=== PATIENT | male | born 1950 | race Caucasian/White ===

== ENCOUNTER 2021-12-15 14:09 | Inpatient (IN) | payer MEDICARE, SELFPAY ==
[2021-12-15] VITALS (11 sets, daily range): BP systolic 132–144; BP diastolic 67–88; PULSE 93–108; RESP 12–20; TEMP 36.6–37.1; O2SAT 90–97; BMI 21.3; BMI 21.2
--- NOTE | ~2021-12-15 | CT_ITS ---
EXAMINATION: CTA brain carotid DATE: 12/16/2021 11:01 INDICATION: Altered mental status. TECHNIQUE: Computed tomographic angiography (CTA) of the head was performed without and with 100 mL O mnipaque-350 intravenous contrast. CTA of the neck was performed with intravenous contrast. Automated exposure control and iterative reconstruction technique were employed. The dose-length product was 1 946.00 mGy-cm. Maximum intensity projection and volume rendered 3D-reconstructions were created by e technologist on a separate workstation. COMPARISON: Head CT 12/15/2021 FINDINGS: HEAD CTA: There are infarcts in the occipital lobes, left worse than right. There is chronic encephal omalacia in lateral left frontal and temporal lobes. There is an old lacunar infarct in right caudate nucleus. There are scattered areas of low attenuation in the cerebral white matter. There is no intr acranial hemorrhage or abnormal mass lesion. The ventricles are normal in size. There are likely cardenas ges of ocular lens replacement surgeries. There is mild mucosal thickening in left maxillary sinus. T here are small bilateral mastoid effusions. Left vertebral artery is dominant. There is no significan t stenosis of basilar artery or the posterior cerebral arteries. There is no significant stenosis of the intracranial internal carotid arteries or anterior or middle cerebral arteries. Anterior communic ating artery is normal. Posterior communicating arteries are not identified. There is no aneurysm. NECK CTA: There is mild scarring at the lung apices. There is moderate emphysema. There is mild mucos al lymphadenopathy. There is no significant stenosis of the vertebral arteries. There is plaque in th e proximal internal carotid arteries. There is 24% stenosis of the proximal right internal carotid ar johnson relative to normal distal artery lumen diameter (NASCET criteria). There is 0% stenosis of the p roximal left internal carotid artery relative to normal distal artery lumen diameter. There is severe cervical spondylosis. IMPRESSION: 1. Infarcts in the occipital lobes, left worse than right, likely acute. 2. Chronic encephalomalacia in left temporal and frontal lobes. 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 3. Moderate nonspecific cerebral white matter disease, which likely represents chronic small vessel i schemic disease. 4. No aneurysm or significant intracranial arterial stenosis. 5. 24% stenosis of the proximal right internal carotid artery relative to normal distal artery lumen diameter (NASCET criteria). 6. 0% stenosis of the proximal left internal carotid artery relative to normal distal artery lumen di ameter. 7. Mild mediastinal lymphadenopathy, likely reactive. 8. Moderate emphysema. Reviewed, dictated and finalized at location A. OF DESIGN IMPRESSION: 1. Infarcts in the occipital lobes, left worse than right, likely acute. 2. Chronic encephalomalacia in left temporal and frontal lobes. 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 3. Moderate nonspecific cerebral white matter disease, which likely represents chronic small vessel ischemic disease. 4. No aneurysm or significant intracranial arterial stenosis. 5. 24% stenosis of the proximal right internal carotid artery relative to ld l distal artery lumen diameter (NASCET criteria). 6. 0% stenosis of the proximal left internal carotid artery relative to normal distal artery lumen diameter. 7. Mild mediastinal lymphadenopathy, likely reactive. 8. Moderate emphysema.
--- NOTE | ~2021-12-15 | US_ITS ---
EXAMINATION: US arterial ankle brachial ind DATE: 12/16/2021 10:36 INDICATION: Peripheral arterial disease. TECHNIQUE: Segmental pressures and plethysmographic and Doppler waveforms of the brachial and lower e xtremity arteries were obtained. COMPARISON: None. FINDINGS: Right and left brachial artery pressures of 150 mm Hg and 160 mm Hg, respectively, are concordant (no rmal difference <= 30 mmHg). The right ankle-brachial index (HANNA) is 0.61 (normal >= 0.9-1.0). The right great toe-brachial index (TBI) is 0.40 (normal >= 0.65). Arterial Doppler waveforms are biphasic in dorsalis pedis and triphas ic in posterior tibial artery. There is a left above-knee amputation. IMPRESSION: 1. Moderately decreased right HANNA, consistent with arterial occlusive disease. Reviewed, dictated and finalized at location A. TECHNICIAN
--- NOTE | ~2021-12-15 | CT_ITS ---
EXAMINATION: CTA chest PE protocol DATE: 12/17/2021 16:49 INDICATION: Hypoxia. TECHNIQUE: Computed tomography angiography (CTA) of the chest was performed with 100 mL Omnipaque-350 intravenous contrast timed to evaluate the pulmonary arteries. Coronal maximum intensity projection 3D-reconstructions were created by the technologist. Automated exposure control and iterative reconst ruction technique were employed. The dose-length product was 663.35 mGy-cm. COMPARISON: None. FINDINGS: There is mild scarring at the lung apices. There are airspace opacities and groundglass opa cities in the lower lobes bilaterally. There is moderate emphysema. There are trace pleural effusions . Cardiomegaly is noted. There are coronary artery calcifications. No pericardial effusion. There is a large sliding hiatal hernia. There is mild mediastinal lymphadenopathy. There is no pulmonary embol us. There are multiple old right rib fractures. There is severe cervical spondylosis and moderate tho racic spondylosis. There are chronic compression fractures of T1 and T2 vertebral bodies. IMPRESSION: 1. No pulmonary embolus. Sensitivity and specificity are moderately decreased by motion artifact. 2. Airspace and groundglass opacities in the lower lobes, consistent with atelectasis versus pneumoni a. 3. Moderate emphysema. 4. Large sliding hiatal hernia. 5. Mild mediastinal lymphadenopathy, likely reactive. Reviewed, dictated and finalized at location A. SCHOOL COORDINATOR IMPRESSION: 1. No pulmonary embolus. Sensitivity and specificity are moderately decreased b y motion artifact. 2. Airspace and groundglass opacities in the lower lobes, consistent with atele ctasis versus pneumonia. 3. Moderate emphysema. 4. Large sliding hiatal hernia. 5. Mild mediastinal lymphadenopathy, likely reactive.
--- NOTE | ~2021-12-15 | MR_ITS ---
EXAMINATION: MR brain/brain stem wo/w con DATE: 12/16/2021 10:18 INDICATION: Cerebrovascular accident. TECHNIQUE: Magnetic resonance imaging (MRI) of the brain and brainstem was performed without and with 14 mL MultiHance intravenous contrast. COMPARISON: Head CT 12/16/2021 FINDINGS: There are scattered acute infarcts involving the right caudate nucleus, posterior frontal l obes, parietal lobes, occipital lobes, posterior temporal lobes, and bilateral cerebellum. There are scattered areas of nonspecific increased T2-weighted signal intensity in the cerebral white matter. T here is chronic encephalomalacia in lateral left frontal and temporal lobes. There is no acute intrac ranial hemorrhage or abnormal mass lesion. The ventricles are normal in size. There are likely change s of ocular lens replacement surgeries. There is a mucous retention cyst in left maxillary sinus. The re are small bilateral mastoid effusions. IMPRESSION: 1. Acute infarcts involving the right caudate nucleus, posterior frontal lobes, parietal lobes, occip ital lobes, posterior temporal lobes, and bilateral cerebellum. 2. Chronic encephalomalacia in lateral left frontal and temporal lobes. 3. Moderate nonspecific cerebral white matter disease, which likely represents chronic small vessel i schemic disease. Reviewed, dictated and finalized at location A. OR MANAGING NEWSPAPER IMPRESSION: 1. Acute infarcts involving the right caudate nucleus, posterior frontal lobes, parietal lobes, occipital lobes, posterior temporal lobes, and bilateral cereb ellum. 2. Chronic encephalomalacia in lateral left frontal and temporal lobes. 3. Moderate nonspecific cerebral white matter disease, which likely represents chronic small vessel ischemic disease.
--- NOTE | ~2021-12-15 | CT_ITS ---
EXAMINATION: CT brain wo con DATE: 12/18/2021 15:41 INDICATION: Stroke symptoms TECHNIQUE: Computed tomography (CT) of the head was performed without intravenous contrast. The mA wa s adjusted according to patient size. Iterative reconstruction technique was employed. Exam dose: 83 2.33 mGy-cm total exam DLP. COMPARISON: 12/16/2021 CT brain carotid 12/16/2021 MR brain/brainstem FINDINGS: Examination is mildly limited by motion artifact. There is vertebrobasilar and bilateral carotid siphon internal carotid artery calcification. There is nonspecific diminished attenuation of the cerebral white matter, likely due to chronic small vessel ischemic changes. Small probable subacute or chronic bilateral occipital infarcts, larger on the left. Focal lateral en cephalomalacia left temporal lobe. No intracranial mass lesion or hemorrhage, midline shift or mass effect or recent cerebrovascular acc ident is evident. No midline shift or mass effect. No subdural or epidural hematoma is noted. The orbital contents are unremarkable. Mild posterior inferior left maxillary sinus mucoperiosteal thickening. The paranasal sinuses and mas toid air cells otherwise unremarkable. No fracture or bone destruction of the cranial vault is detected. IMPRESSION: No intracranial hemorrhage, midline shift or mass effect is noted Subacute bilateral occipital infarcts and lateral left temporal focal encephalomalacia Cerebral atherosclerosis and chronic small vessel ischemic changes of the cerebral white matter No significant change since 12/16/2021 Reviewed, dictated and finalized at Location A. Reviewed, dictated and finalized at location A. STRIAL ELECTRICIAN JOURNEYMAN IMPRESSION: No intracranial hemorrhage, midline shift or mass effect is noted Subacute bilateral occipital infarcts and lateral left temporal focal encephalo malacia Cerebral atherosclerosis and chronic small vessel ischemic changes of the cereb ral white matter No significant change since 12/16/2021
--- NOTE | ~2021-12-15 | XR_ITS ---
EXAMINATION: XR chest 1V portable INDICATION: Hypoxia TECHNIQUE: Portable AP chest at 1053 hours COMPARISON: 12/15/2021 FINDINGS: Left basilar atelectasis persists without significant change. There is mild atelectasis of the right lung base. There is a large hiatal hernia. No pleural effusion or pneumothorax. The heart s ize is normal. IMPRESSION: 1. Mild atelectasis of the lung bases. Reviewed, dictated and finalized at location B. TIC EXTRUSION OPERATOR
--- NOTE | ~2021-12-15 | CT_ITS ---
EXAMINATION: CT brain wo con DATE: 12/15/2021 16:46 INDICATION: Altered mental status. TECHNIQUE: Computed tomography (CT) of the head was performed without intravenous contrast. The mA wa s adjusted according to patient size. Iterative reconstruction technique was employed. The dose-lengt h product was 1210.67 mGy-cm. COMPARISON: None FINDINGS: There is chronic encephalomalacia in the lateral aspects of left frontal and temporal lobes . There are infarcts in the occipital lobes, left worse than right. There are scattered areas of low attenuation in the cerebral white matter. There is no intracranial hemorrhage or abnormal mass lesion . The ventricles are normal in size. There are likely changes of ocular lens replacement surgeries. T here is mild mucosal thickening in the ethmoid sinuses. The mastoid air cells are normal. IMPRESSION: 1. Infarcts in the occipital lobes, left worse than right, likely acute. 2. Chronic encephalomalacia in left temporal and frontal lobes. 3. Moderate nonspecific cerebral white matter disease, which likely represents chronic small vessel i schemic disease. Reviewed, dictated and finalized at location A. CAL CASE MANAGER IMPRESSION: 1. Infarcts in the occipital lobes, left worse than right, likely acute. 2. Chronic encephalomalacia in left temporal and frontal lobes. 3. Moderate nonspecific cerebral white matter disease, which likely represents chronic small vessel ischemic disease.
--- NOTE | ~2021-12-15 | US_ITS ---
EXAMINATION: US venous doppler [facility] DATE: 12/18/2021 09:14 INDICATION: Lower limb swelling, left [id number] amputation TECHNIQUE: Vick scale images without and with compression and Doppler images of the bilateral lower e xtremity veins were obtained. COMPARISON: None FINDINGS: The right common femoral vein, profunda femoral vein, femoral vein, popliteal vein, posterior tibial veins, and greater saphenous vein are patent. The right peroneal vein is difficult to visualize. The left common femoral vein, profunda femoral vein, femoral vein, and greater saphenous vein are pat ent. IMPRESSION: 1. Patent bilateral lower extremity veins. No evidence of deep venous thrombosis. Right peroneal vein difficult to visualize. Reviewed, dictated and finalized at location A. CAMPAIGN MANAGER IMPRESSION: 1. Patent bilateral lower extremity veins. No evidence of deep venous thrombosi s. Right peroneal vein difficult to visualize.
--- NOTE | ~2021-12-15 | XR_ITS ---
EXAMINATION: XR chest 1V portable DATE: 12/15/2021 16:25 INDICATION: Altered mental status. TECHNIQUE: A single frontal view of the chest was obtained on 2 radiographs. COMPARISON: Chest single view 06/20/15 FINDINGS: There is a large hiatal hernia. There is mild atelectasis in left lower lung zone. No pleur al effusion or pneumothorax. The heart size is normal. IMPRESSION: 1. Large hiatal hernia. 2. Mild atelectasis in left lower lung zone. Reviewed, dictated and finalized at location A. ER CUTTER
--- NOTE | ~2021-12-15 | XR_ITS ---
EXAMINATION: XR barium swallow modified DATE: 12/18/2021 12:15 INDICATION: Pneumonia, possible aspiration TECHNIQUE: Modified barium esophagram was performed by myself who administered fluoroscopy, in conju nction with speech pathologist who administered barium in varying consistencies as per speech patholo gist documentation. This was recorded on tape. A single fluoroscopic spot image was recorded. Fluoros copy exposure time was 0.7 minutes. The DAP for this procedure was 0.988 Gycm2. FINDINGS: Oral stage: Adequate function. Pharyngeal phase: Adequate function. Laryngeal penetration: None. Aspiration: None. Laryngeal sensitivity: Not applicable. IMPRESSION: Normal modified barium swallow. Please refer to speech pathologist findings and specific feeding recommendations. Reviewed, dictated and finalized at location A. ENRICHMENT SPECIALIST
--- NOTE | ~2021-12-15 | US_ITS ---
EXAMINATION: US venous doppler UE DATE: 12/18/2021 09:25 INDICATION: Bilateral upper extremity swelling TECHNIQUE: Grayscale ultrasound images without and with compression and Doppler ultrasound images of the bilateral upper extremity veins were obtained. COMPARISON: None. FINDINGS: The right internal jugular vein, subclavian vein, axillary vein, basilic vein, cephalic vein, radial vein, and ulnar vein are patent. There is thrombosis in the right brachial vein. The left internal jugular vein, subclavian vein, axillary vein, brachial veins, basilic vein, radial vein, and ulnar vein are patent. There is thrombosis in the left cephalic vein. IMPRESSION: 1. Venous thrombosis in the right brachial vein and left cephalic vein. Reviewed, dictated and finalized at location A. ANICAL MANUFACTURING ENGINEER
--- NOTE | 2021-12-15 14:33 | ECG_ITS ---
Measurements Intervals [place] Rate: 94 P: 78 NV: 133 QRS: 16 QRSD: 93 T: 72 QT: 341 QTc: 426 Interpretive Statements SINUS RHYTHM ATRIAL PREMATURE COMPLEXES POSSIBLE LEFT ATRIAL ENLARGEMENT CANNOT RULE OUT SEPTAL INFARCT, AGE INDETERMINATE ABNORMAL ECG NO PREVIOUS ECG AVAILABLE FOR COMPARISON Electronically Signed On 12-15-2021 15:49:05 GRADER [employer]AT by Norman Williamson D.O.
[2021-12-15 15:45] LABS: Basophils Absolute Auto 0.1 K/mm3 (0.0-0.1); Basophils Percent Auto 0.6 % (0.2-1.2); Eosinophils Absolute Auto 0.1 K/mm3 (0-0.3); Eosinophils Percent Auto 1.5 % (0-4.4); Hematocrit 42.8 % (42.0-52.0); Hemoglobin 13.7 g/dL (14.0-18.0); Immature Granulocyte Absolute 0.03 K/mm3 (0.00-0.031); Immature Granulocyte Percent A 0.4 % (0-0.5); Immature Platelet Fraction Pct 8.9 % (0.9-11.2); Lymphocytes Percent Auto 19.7 % (18.3-44.2); Mean Corpuscular Hemoglobin 26.1 pg (26-34); Mean Corpuscular Volume 81.7 fl (80-100); Mean Platelet Volume 10.1 fl (7.4-10.4); Monocytes Absolute Auto 0.7 K/mm3 (0.1-0.6); Monocytes Percent Auto 8.6 % (2.6-8.5); Neutrophils Absolute Auto 5.6 K/mm3 (1.3-6.7); Neutrophils Percent Auto 69.2 % (45.5-73.1); Platelet Count Result 107 k/mm3 (150-375); Red Blood Count 5.24 M/mm3 (4.6-6.20); Red Cell Distribution Width 15.6 % (11.5-14.5); White Blood Count 8.1 K/mm3 (4.5-10.0)
[2021-12-15 15:52] LABS: Alanine Aminotransferase 48 U/L (6-50); Albumin Level 3.1 g/dL (3.5-5.1); Alkaline Phosphatase 111 U/L (38-126); Anion Gap 7 mmol/L (8-16); Aspartate Amino Transferase 75 U/L (17-59); Bilirubin,Total 0.7 mg/dL (0.2-1.3); Blood Urea Nitrogen 19 mg/dL (9-20); Calcium 8.3 mg/dL (8.4-10.2); Carbon Dioxide 33 mmol/L (22-30); Chloride 95 mmol/L (98-107); Estimated CRCL calculation 53 ml/min; Estimated Glomerular Filt Rate > 60; Glucose 99 mg/dL (65-110); Potassium 3.7 mmol/L (3.4-5.0); Sodium 135 mmol/L (137-145)
[2021-12-15 15:53] LABS: INR 1.4; Prothrombin Time 16.3 Seconds (11.1-14.7)
[2021-12-15 15:54] LABS: Partial Thromboplastin Time 30.1 SECONDS (22.3-36.8)
[2021-12-15 16:12] LABS: Creatine Kinase 191 U/L (55-170)
--- NOTE | 2021-12-15 16:15 | PC.NURSE ---
Patient A&Ox1 at this time. Family states patient has been this way since Monday evening.
--- NOTE | 2021-12-15 17:19 | ED.AMS ---
HPI - Altered Mental Status General Chief Complaint: Altered Mental Status Stated Complaint: altered mental status since Monday Time Seen by Provider: 12/15/21 17:02 History of Present Illness HPI narrative: Pt presents with altered mental status today. Pt has had some balance issues recently and fell last week but did not injure himself. Pt has had intermittent visual symptoms (blurred vison) but says is fine now. Pt denies MURCIA. Pt denies one sided weakness. Related Data Home Medications Medication Instructions Recorded Confirmed Aleve 220 PO BID 12/15/21 famotidine 40 mg tablet 40 mg PO DAILY 12/15/21 12/15/21 morphine 30 mg tablet,extended 30 mg PO DAILY 12/15/21 12/15/21 release Allergies Allergy/AdvReac Type Severity Reaction Status Date / Time No Known Allergies Allergy Unverified 05/27/15 06:58 Review of Systems Review of Systems: All systems reviewed & are unremarkable except as noted in HPI and below PMFSH Family History Family History (Updated 02/20/13 @ 12:12 by DOCTOR UNKNOWN) Other Hypertension Social History Social History Smoking status: Current every day smoker Alcohol intake: never Exam Const: General: healthy appearing Nutritional Appearance: well nourished Orientation/consciousness: patient oriented x3 Limitations: no limitations HENMT: Head: normal to inspection Mouth: Yes Normal oral and palatal mucosa present Eyes: Conjunctivae: conjunctivae normal Pupils: Equal, round and reactive pupils present EOM: EOMs intact bilaterally Neck: Neck: normal visual inspection, no lymphadenopathy and no meningeal signs Resp: Effort & Inspection: normal respiratory effort Auscultation: clear to auscultation bilaterally Cardio: Rate: regular rate Rhythm: regular rhythm GI: GI Palp: Yes Soft to palpation Auscultation: normal bowel sounds Skin: General skin exam: normal color Rashes: no rashes Neuro: General: patient oriented x3, moves all extremities, no meningeal signs, no focal motor deficits and CN's II-XI intact bilaterally Cranial nerves: Yes Nystagmus not present Speech: normal speech Extrem: General: normal to inspection and no clubbing, cyanosis or edema Psych: Mental Status: mental status grossly normal Affect: normal affect Attitude: cooperative Course Course Emergency Course: pt reluctant to stay but family convinced him. Lexa agrees to admit with neuro consult. d/w dr pierre, would like cta head and neck and asa. Difficlut IV stick so pt refused further effort to obtain access and refuses central line. Pt does agree to await ulrasound guided IV attempt in morning, this is not ideal but would rather him stay and get the IV and studies in morning rather than leave ama. Vital Signs Vital signs: Vital Signs Temperature 98.7 F 12/15/21 15:00 Pulse Rate 96 12/15/21 15:00 Respiratory Rate 14 12/15/21 15:00 Blood Pressure 141/73 H 12/15/21 15:00 Pulse Oximetry 97 12/15/21 15:00 Oxygen Delivery Room Air 12/15/21 15:00 Temperature 97.9 F 12/15/21 21:35 Pulse Rate 108 H 12/15/21 21:35 Respiratory Rate 20 12/15/21 21:35 Blood Pressure 132/67 12/15/21 21:35 Pulse Oximetry 91 12/15/21 21:35 Oxygen Delivery Room Air 12/15/21 15:00 MDM - Altered Mental Status Lab Data Result diagrams: 12/15/21 15:32 12/15/21 15:32 Labs: Lab Results 12/15/21 12/15/21 12/15/21 Range/Units 15:32 15:32 15:32 WBC 8.1 (4.5-10.0) K/mm3 RBC 5.24 (4.6-6.20) M/mm3 Hgb 13.7 L (14.0-18.0) g/dL Hct 42.8 (42.0-52.0) % MCV 81.7 (80-100) fl MCH 26.1 (26-34) pg MCHC 32.0 (32-36) g/dl RDW 15.6 H (11.5-14.5) % Plt Count 107 L (150-375) k/mm3 MPV 10.1 (7.4-10.4) fl Immature Gran % (Auto) 0.4 (0-0.5) % Neut % (Auto) 69.2 (45.5-73.1) % Lymph % (Auto) 19.7 (18.3-44.2) % Tift % (Auto) 8.6 H (2.6-8.5) % Eos % (Auto) 1.5 (0-4.4) %
[2021-12-15 17:24] LABS: Appearance Urine Clear (Clear); Bilirubin Urine 1+ (Negative); Blood Urine Negative (Negative); Color Urine Yellow (Yellow); Glucose Urine UA Negative (Negative); Ketones Urine Trace mg/dL (Negative); Leukocyte Esterase Ur Negative LEU/UL (Negative); Nitrate Urine Negative (Negative); Protein Urine 1+ mg/dL (Negative); pH Urine 6.5 (5.0-9.0)
[2021-12-15 17:29] LABS: Calcium Oxalate Crystals Urine Present /hpf; Mucus Urine Rare /lpf
[2021-12-15 17:31] LABS: Add Urine Microscopic? YES
[2021-12-15 17:39] LABS: Influenza A QL RT-PCR Negative (Negative); Influenza B QL RT-PCR Negative (Negative); SARS-CoV-2 RNA PCR Negative
[2021-12-15] MEDS: NICOTINE (*PBKC) 21 MG PATCH 1 PATCH TRANSDERM (18:30)
--- NOTE | 2021-12-15 19:00 | PC.NURSE ---
Unable to obtain IV on patient. Patient cursing at staff for attempting.
--- NOTE | 2021-12-15 21:34 | ADMGEN ---
This patient, Danish Adamson, was admitted to 2 Medical Room 244-. Patient/family oriented to hospital policies and general routines including ID bracelet, bed and alarms, visiting hours, pain management, procedures, bathroom and other care routines, personal items, smoking policy, room service/diet, and visiting hours. Information on how to activate the Rapid Response Team has been discussed. Patient/Family are encouraged to report perceived risks to care and to ask questions if they do not understand what they are told or what they should do.
--- NOTE | 2021-12-15 21:34 | PM.IMHP ---
H&P: HPI History of Present Illness Date/Time: 12/15/21 21:34 Chief Complaint: Altered mental status Narrative: this is a 71-year-old male patient was having difficulty with balance issues today. The patient does have a left above the knee amputation and he has multiple Band-Aids to his right forearm and he has a Band-Aid to his right heel. The patient stated that he has been having balance issues any fell last week but did not injure himself. The patient has bruises all over his arms. The patient had some intermittent visual changes but states he is fine now. The patient was able to tell how many fingers I held up. Patient denies any focal weakness. The patient lives with his daughter. Influenza A/B RSV and COVID are negative. The patient is confused about why he is here and any of his medical conditions. He had difficulty giving me information. Information had to be obtained from old records. head CT was read as the following 1. Infarcts in the occipital lobes, left worse than right, likely acute. 2. Chronic encephalomalacia in left temporal and frontal lobes. 3. Moderate nonspecific cerebral white matter disease, which likely represents chronic small vessel ischemic disease. the patient was started on an aspirin the patient is being admitted to inpatient services on the date of service of 12/15/2021. Review of Systems Review of Systems: The patient is a poor historian. See HPI. Information was obtained through family members and his old records. [facility] Past Medical History Medical History (Updated 12/16/21 @ 01:01 by Estelle Gutierrez NP) Above knee amputation of left lower extremity BPH (benign prostatic hyperplasia) Gastroesophageal reflux disease History of kidney cancer History of lymphoma Substance abuse Tobacco abuse Surgical History Surgical History H/O cataract extraction H/O umbilical hernia repair History of nephrectomy History of total knee arthroplasty Family History Family History Other Hypertension Social History Social History (Updated 12/16/21 @ 00:51 by Estelle Gutierrez NP) Social History: The patient lives with his daughter and tells me that he has had 5 children. The patient could not tell me when he retired from. The patient continues to smoke every day. The patient is listed as single. His daughter Jenae is listed as the next of kin. Code status full code Smoking status: Current every day smoker Alcohol intake: never Substance use: never Lack of Transportation: No Lack of Food: Never True Current Housing: I Have Housing Concerned About Future Housing: No Difficulty Paying Gas/Electric Bills: No Difficulty Paying for Meds: No Currently Unemployed: No Education: High School Diploma/GED Difficulty w/ Childcare or Family Care: No Spiritual care concerns: No Meds Home Medications and Allergies Home Medications Medication Instructions Recorded Confirmed Type Aleve 220 PO BID 12/15/21 History famotidine 40 mg tablet 40 mg PO DAILY 12/15/21 12/15/21 History morphine 30 mg tablet,extended 30 mg PO DAILY 12/15/21 12/15/21 History release Allergies Allergy/AdvReac Type Severity Reaction Status Date / Time No Known Allergies Allergy Unverified 05/27/15 06:58 Vital Signs Vital Signs - 24 hr 12/15/21 15:00 12/15/21 15:53 12/15/21 15:55 Temperature 37.1 C Pulse Rate 96 99 93 Respiratory Rate 14 18 13 Blood Pressure 141/73 H 138/88 Pulse Oximetry 97 90 Oxygen Delivery Room Air 12/15/21 16:00 12/15/21 16:01 12/15/21 16:15 Temperature Pulse Rate 93 93 98 Respiratory Rate 15 15 14 Blood Pressure 133/87 Pulse Oximetry 91 Oxygen Delivery 12/15/21 16:16 12/15/21 16:30 12/15/21 16:50 Temperature Pulse Rate 96 99 Respiratory Rate 12 14 Blood Pressure 144/73 H Pulse Oxime
[2021-12-16] VITALS (9 sets, daily range): BP systolic 115–137; BP diastolic 67–108; PULSE 94–126; RESP 18–20; TEMP 36.5–37.1; O2SAT 90–92; BMI 21.2
[2021-12-16] MEDS: ASPIRIN 325 MG TABLET PO (00:16)
[2021-12-16 06:52] LABS: Alanine Aminotransferase 42 U/L (6-50); Albumin Level 2.7 g/dL (3.5-5.1); Alkaline Phosphatase 105 U/L (38-126); Anion Gap 4 mmol/L (8-16); Aspartate Amino Transferase 61 U/L (17-59); Basophils Percent Auto 0.5 % (0.2-1.2); Bilirubin,Total 0.7 mg/dL (0.2-1.3); Blood Urea Nitrogen 20 mg/dL (9-20); Carbon Dioxide 32 mmol/L (22-30); Chloride 98 mmol/L (98-107); Eosinophils Absolute Auto 0.2 K/mm3 (0-0.3); Eosinophils Percent Auto 2.7 % (0-4.4); Estimated CRCL calculation 60 ml/min; Estimated Glomerular Filt Rate > 60; Glucose 80 mg/dL (65-110); Hematocrit 41.1 % (42.0-52.0); Hemoglobin 12.9 g/dL (14.0-18.0); Immature Granulocyte Absolute 0.03 K/mm3 (0.00-0.031); Immature Granulocyte Percent A 0.3 % (0-0.5); Immature Platelet Fraction Pct 10.1 % (0.9-11.2); Lymphocytes Absolute Auto 1.91 K/mm3 (0.9-3.2); Lymphocytes Percent Auto 22.1 % (18.3-44.2); Magnesium 1.9 mg/dL (1.6-2.3); Mean Corpuscular HGB Conc 31.4 g/dl (32-36); Mean Corpuscular Hemoglobin 26.1 pg (26-34); Mean Platelet Volume 11.9 fl (7.4-10.4); Monocytes Absolute Auto 0.7 K/mm3 (0.1-0.6); Neutrophils Absolute Auto 5.8 K/mm3 (1.3-6.7); Neutrophils Percent Auto 66.4 % (45.5-73.1); Platelet Count Result 98 k/mm3 (150-375); Potassium 3.9 mmol/L (3.4-5.0); Red Blood Count 4.95 M/mm3 (4.6-6.20); Red Cell Distribution Width 15.6 % (11.5-14.5); Sodium 134 mmol/L (137-145); White Blood Count 8.7 K/mm3 (4.5-10.0)
[2021-12-16 07:31] LABS: Thyroid Stimulating Hormone Reflex 0.991 uIU/mL (0.465-4.68)
--- NOTE | 2021-12-16 08:17 | WPDNEURCNPN ---
Assessment and Plan Assessment and plan (1) Stroke: Code(s): I63.9 - Cerebral infarction, unspecified Status: Acute (2) Tobacco abuse: Code(s): Z72.0 - Tobacco use Status: Acute Plan Mr. Adamson is a 71 year old male with a history of smoking and L above knee amputation presenting with 1 week history of balance issues and transient vision symptoms. He was found to have bilateral multifocal infarcts involving both anterior and posterior circulation. Distribution of stroke is concerning for cardioembolic etiology. - Will need surface echo with bubble study; if negative, recommend consulting Cardiology for possible SARI/Loop recorder - Check lipid panel and HgbA1c - Discussed importance of smoking cessation Consult date: 12/16/21 Time Seen: 08:18 Reason for consult: Stroke HPI: Danish Adamson is a 71 year old male with a history of chronic smoking and above the knee amputation of the left leg who presented due to balance issues. Patient presented to the ED due to balance issues for the past week. He also reported intermittent visual symptoms, that were transient and self-resolved. In the ED, patient appeared confused and did not know why he was in the hospital. CT head showed findings concerning for acute bioccipital stroke. Family reports he is still not acting like himself. He is still confused and seems to have some visual deficits. MRI brain showed acute infarct involving the R caudate, bilateral posterior frontal lobes, bilateral parietal lobes, bilateral occipital lobes, bilateral posterior temporal lobes, and bilateral cerebellum. CTA showed 24% stenosis of proximal R ICA and 0% stenosis of proximal L ICA. Review of Systems Review of Systems: ROS unobtainable: Yes unobtainable due to mental status PMFSH Past Medical History Medical History Above knee amputation of left lower extremity BPH (benign prostatic hyperplasia) Gastroesophageal reflux disease History of kidney cancer History of lymphoma Substance abuse Tobacco abuse Surgical History Surgical History H/O cataract extraction H/O umbilical hernia repair History of nephrectomy History of total knee arthroplasty Family History Family History Other Hypertension Social History Social History Social History: The patient lives with his daughter and tells me that he has had 5 children. The patient could not tell me when he retired from. The patient continues to smoke every day. The patient is listed as single. His daughter Jenae is listed as the next of kin. Code status full code Smoking status: Current every day smoker Alcohol intake: never Substance use: never Lack of Transportation: No Lack of Food: Never True Current Housing: I Have Housing Concerned About Future Housing: No Difficulty Paying Gas/Electric Bills: No Difficulty Paying for Meds: No Currently Unemployed: No Education: High School Diploma/GED Difficulty w/ Childcare or Family Care: No Spiritual care concerns: No Meds Home Medications and Allergies Home Medications Medication Instructions Recorded Confirmed Type Aleve 220 mg PO BID 12/15/21 12/16/21 History famotidine 40 mg tablet 40 mg PO BID 12/15/21 12/16/21 History morphine 30 mg tablet,extended 30 mg PO BID 12/15/21 12/16/21 History release Allergies Allergy/AdvReac Type Severity Reaction Status Date / Time No Known Allergies Allergy Unverified 05/27/15 06:58 Vital Signs Vital Signs - 24 hr 12/15/21 15:00 12/15/21 15:53 12/15/21 15:55 Temperature 37.1 C Pulse Rate 96 99 93 Respiratory Rate 14 18 13 Blood Pressure 141/73 H 138/88 Pulse Oximetry 97 90 Oxygen Delivery Room Air 12/15/21 16:00 12/15/21 16:01 12/15/21 16:15 T
[2021-12-16] MEDS: FAMOTIDINE 20 MG TABLET 40 MG PO ×2 (11:22→17:34)
[2021-12-16] MEDS: SILVERGEL (ELTA) 45 ML 1 APPLIC TOPICAL (11:22)
[2021-12-16] MEDS: SIMVASTATIN 20 MG TABLET PO (11:22)
[2021-12-16] MEDS: MORPHINE SULFATE (*CRX) 30 MG TABCR PO ×2 (11:22→17:34)
--- NOTE | 2021-12-16 11:34 | PM.IMPN ---
Progress Note: A&P Assessment and Plan (1) Stroke: Code(s): I63.9 - Cerebral infarction, unspecified Status: Acute Assessment and Plan: -head CT was read as the following 1. Infarcts in the occipital lobes, left worse than right, likely acute. 2. Chronic encephalomalacia in left temporal and frontal lobes. 3. Moderate nonspecific cerebral white matter disease, which likely represents chronic small vessel ischemic disease - neurology has been consulted. CTA head and neck and MRI ordered for new recommendations. -The patient was started on an aspirin. -PT and OT evaluation greatly appreciated. - Check A1c, lipid panel - start the patient on low-dose statin (2) BPH (benign prostatic hyperplasia): Code(s): N40.0 - Benign prostatic hyperplasia without lower urinary tract symptoms Status: Acute Assessment and Plan: -the patient is no longer on any medication. (3) Tobacco abuse: Code(s): Z72.0 - Tobacco use Status: Acute Assessment and Plan: -The patient is on a nicotine patch. (4) Substance abuse: Code(s): F19.10 - Other psychoactive substance abuse, uncomplicated Status: Acute Assessment and Plan: The patient is currently on morphine b.i.d. (5) Gastroesophageal reflux disease: Code(s): K21.9 - Gastro-esophageal reflux disease without esophagitis Status: Acute Assessment and Plan: continue with famotidine. Plan Patient has a wound to his right heel and he has necrotic tissue on his toes. Wound care consultation was placed. Subjective Date/time seen: 12/16/21 11:34 no overnight issues Review of Systems Review of Systems: All systems reviewed & are unremarkable except as noted in HPI and below Exam Const: General: cooperative, well developed, awake and overweight Nutritional Appearance: average body habitus and well nourished Orientation/consciousness: oriented to person, oriented to place, oriented to time and patient oriented x3 Limitations: no limitations HENMT: Head: normal to inspection, No palpable skull fracture present, normocephalic and atraumatic Ears: hearing grossly normal bilaterally and external ears normal Face/Nose/Sinus: Normal external nose present and Normal nares present Eyes: General: appearance normal, both eyes and all related structures Alignment and Position: alignment normal Periorbital: periorbital findings normal Eyelids: eyelids normal Sclera: sclerae normal Pupils: Equal, round and reactive pupils present EOM: EOMs intact bilaterally Neck: Neck: normal visual inspection, full ROM, no lymphadenopathy, trachea midline and supple Chest: Chest palpation & inspection: normal inspection of the chest Resp: Effort & Inspection: normal respiratory effort Auscultation: wheezes Percussion: percussion normal Cardio: Palpation: normal PMI Rate: regular rate Rhythm: regular rhythm Heart sounds: S1 normal heart sound present and S2 normal heart sound present Peripheral pulses: Peripheral pulses 2+ throughout GI: Inspection: normal to inspection Auscultation: normal bowel sounds Rectal Exam: deferred Back/Spine/Pelvis: Cervical Spine: cervical ROM normal Skin: General skin exam: normal color Lesions: no lesions Rashes: no rashes Wounds: no wounds Hair: general thinning Nails: normal Other: the patient has multiple bruises to both arms. He has bandages to x3 to the right forearm he has a large Band-Aid to the right heel. He has abrasions to his toes on the right foot. He has eschar tissue to the toes on the right foot Neuro: General: oriented to person and oriented to place Cranial nerves: Yes Equal, round and reactive pupils present and Yes Normal hearing present Cognition (Neuro): abnormal cognition Speech: normal speech Extrem: General: normal to inspection Right upper extremity: normal to inspection and shoulder/upper arm Left upper extremity: normal to inspection an
--- NOTE | 2021-12-16 14:22 | PC.NURSE ---
On 12/16/21, the student, [Josefina Patrick], provided care and completed [facility] documentation on this patient. I have reviewed the student's documentation and agree with the findings.
[2021-12-16 14:31] LABS: Cholesterol 89 mg/dL (0-200); HDL Direct 32 mg/dL; Triglycerides 75 mg/dL (<150)
[2021-12-16 14:36] LABS: LDL Cholesterol Direct 42 mg/dL
--- NOTE | 2021-12-16 14:58 | PCCARD ---
12/16/21 @ 14:45 - PATIENT REFUSED ECHOCARDIOGRAM. RN INFORMING DOCTOR PATIENT REFUSED. IF THE PATIENT IS STILL HERE TOMORROW, WE WILL TRY AGAIN TO PERFORM EXAM. -RAL
[2021-12-16 17:04] LABS: Hemoglobin A1C 5.1 % (<5.7)
[2021-12-16] MEDS: NICOTINE (*PBKC) 21 MG PATCH 1 PATCH TRANSDERM (18:37)
[2021-12-16] MEDS: LORazepam INJ (*CRX) 2 MG/ML VIAL 1 MG IV PUSH (23:25)
[2021-12-17] VITALS (14 sets, daily range): BP systolic 107–158; BP diastolic 60–95; PULSE 105–133; RESP 16–20; TEMP 36.3–37.1; O2SAT 91–99
--- NOTE | 2021-12-17 | ECHO_ITS ---
Patient Info Name: Danish Adamson Age: 71 years : 1950 Gender: Male Ht: 72 in Wt: 156 lbs BSA: 1.89 m2 HR: 125 bpm BP: 107 / 60 mmHg Heart Rhythm: Sinus Rhythm Technical Quality: Poor Exam Date: 12/17/2021 2:06 PM Exam Location: [facility] Patient Status: Inpatient Admit Date: 12/15/2021 Staff Ordering Physician: Estelle Gutierrez NP Estimator And Drafter: Eulalia Tobar RDCS Attending Provider: Silverio Chavez MD Referring Physician: Brenda DHILLON; Exam Type: CA echo doppler w bubble study Study Info Indications - STROKE Complete two-dimensional, color flow and Doppler transthoracic echocardiogram is performed with agitated saline. Contrast/Agitated Saline Contrast/Ag. Saline: Agitated Saline Amount: 30.00 ml Administered By: Ilsa Alejandro RDCS Existing IV Access: Yes IV Access Condition: patent with no signs of infiltration Reason for Poor Study: poor patient cooperation Summary 1. Technically difficult exam, uncooperative patient. 2. Mild left ventricular enlargement with moderate systolic dysfunction and grade 1 diastolic noncompliance. 3. Aortic valve sclerosis without stenosis. 4. Dilated left atrium. 5. Sinus rhythm. 6. Agitated saline contrast does not appear to show any intracardiac shunt. Left Ventricle Left ventricular chamber dimension is mildly enlarged. Left ventricular systolic function is moderately reduced, estimated at 35-40%. The left ventricular diastolic function is grade I diastolic dysfunction. Right Ventricle Right ventricular chamber dimension is normal. Left Atria Left atrial chamber dimension is moderately enlarged. Right Atria Right atrial chamber dimension is normal. Atrial Septum Intact interatrial septum visualized by agitated saline imaging. Aortic Valve The aortic valve is not well visualized. There is mild aortic valve sclerosis. There is no aortic valve stenosis. Pulmonic Valve The pulmonic valve is not well visualized. Mitral Valve The mitral valve has normal leaflets. There is trace mitral valve regurgitation. The mitral valve annulus is mildly calcified. Tricuspid Valve The tricuspid valve leaflets are not well visualized. Pericardium/Pleural The pericardium appears normal. Aorta The aortic root size at the sinus of Valsalva is normal. Left Ventricular Outflow Tract Name Value Normal LVOT 2D LVOT Diameter 2.0 cm LVOT Doppler LVOT Peak Gradient 3 mmHg LVOT Mean Gradient 2 mmHg LVOT VTI 14 cm LVOT VTI/AV VTI Ratio 1.1 LVOT Stroke Volume 46 ml LVOT CO 6.1 l/min LVOT CI 3.3 l/min/m2 Pulmonic Valve Name Value Normal RVOT Doppler
--- NOTE | 2021-12-17 03:31 | PC.NURSE ---
Pt given 1mg ativan at 2330 due to severe restlessness and inability to be redirected. Pt is very confused and unable to comprehend using a urinal or bedpan and was unable to safely leave the bed even with patient helper equipment. Pt had incontinent void after onset of ativan and bladder scan at 0200 shows empty bladder.
[2021-12-17 07:00] LABS: Alveolar/Arterial O2 Gradient 174.5 mmHg; Base Excess ABG 4.4 mEq/l (+/-2.0); Carboxyhemoglobin 1.9 % THb (0-2.0); Fractional Inspired Oxygen 40 %; HCO3 ABG 29.1 mEq/l (22.0-26.0); Methemoglobin ABG 0.2 %THb (0-1.5); Oxygen Saturation ABG 91.8 % (95.0-100.0); Oxyhemoglobin 89.4 % THb (90.0-100.0); PO2 ABG 60.1 mmHg (80.0-100.0); Reduced Hemoglobin 8.5 %THb (0-5.0); Total Hemoglobin 13.5 g/dL (12.0-18.0); pH ABG 7.439 (7.350-7.450)
[2021-12-17 07:01] LABS: Device NASAL CANNULA; Modified Allen's Test Pass; Site Drawn RIGHT RADIAL
--- NOTE | 2021-12-17 08:33 | WPDNEUROPN ---
Progress Note: A&P Assessment and Plan (1) Stroke: Code(s): I63.9 - Cerebral infarction, unspecified Status: Acute (2) Tobacco abuse: Code(s): Z72.0 - Tobacco use Status: Acute Plan Mr. Adamson is a 71 year old male with a history of smoking and L above knee amputation presenting with 1 week history of balance issues and transient vision symptoms. He was found to have bilateral multifocal infarcts involving both anterior and posterior circulation. Distribution of stroke is concerning for cardioembolic etiology. - Will need surface echo with bubble study; if negative, recommend consulting Cardiology for possible SARI/Loop recorder - Continue daily ASA 81mg and Simvastatin 20mg daily - Discussed importance of smoking cessation Subjective Date/time seen: 12/17/21 08:33 Interval history: Danish Adamson is a 71 year old male with a history of chronic smoking and above the knee amputation of the left leg who presented due to balance issues. Patient presented to the ED due to balance issues for the past week. He also reported intermittent visual symptoms, that were transient and self-resolved. In the ED, patient appeared confused and did not know why he was in the hospital. CT head showed findings concerning for acute bioccipital stroke. Family reports he is still not acting like himself. He is still confused and seems to have some visual deficits. MRI brain showed acute infarct involving the R caudate, bilateral posterior frontal lobes, bilateral parietal lobes, bilateral occipital lobes, bilateral posterior temporal lobes, and bilateral cerebellum. CTA showed 24% stenosis of proximal R ICA and 0% stenosis of proximal L ICA. Labs showed LDL 42 and HgbA1c 5.1. BP in the 110s-130s systolic. Review of Systems Review of Systems: ROS unobtainable: Yes unobtainable due to mental status Exam Const: General: comfortable and no acute distress HENMT: Mouth: Yes moist mucous membranes Eyes: Pupils: Equal, round and reactive pupils present Resp: Effort & Inspection: normal respiratory effort Auscultation: clear to auscultation bilaterally Cardio: Rate: tachycardic GI: GI Palp: Yes Soft to palpation Auscultation: normal bowel sounds Skin: General skin exam: normal color Neuro: Other: Awake, alert, oriented only to self. Strength is symmetric and intact in bilateral upper extremities as well as proximal lower extremities, distal right lower extremity strength normal, left extremity as above knee amputation. Sensory appears to be intact bilaterally. Face is symmetric. Optic ataxia with FNF and oculomotor apraxia Extrem: Other: Left above knee amputation Objective Data Vital Signs Vital Signs: Vital Signs - 24 hr 12/16/21 12:00 12/16/21 13:53 12/16/21 14:36 Temperature Pulse Rate 109 H 123 H Respiratory Rate 20 Blood Pressure 137/108 H Pulse Oximetry 92 Oxygen Delivery Room Air Oxygen Flow Rate 12/16/21 16:00 12/16/21 21:35 12/16/21 20:00 Temperature 37.1 C Pulse Rate 126 H 119 H 114 H Respiratory Rate 18 Blood Pressure 115/82 Pulse Oximetry 90 Oxygen Delivery Oxygen Flow Rate 12/17/21 00:00 12/17/21 04:00 12/17/21 05:43 Temperature 37.1 C Pulse Rate 133 H 124 H 122 H Respiratory Rate 18 Blood Pressure 107/60 Pulse Oximetry 94 Oxygen Delivery Oxygen Flow Rate 12/17/21 05:00 Temperature Pulse Rate Respiratory Rate Blood Pressure Pulse Oximetry 91 Oxygen Delivery Nasal Cannula Oxygen Flow Rate 5 Intake/Output Intake/Output: Intake & Output 12/14/21 12/15/21 12/16/21 12/17/21 23:59 23:59 23:59 23:59 Intake Total 120 Output Total 250 400 Balance -130 -400 Meds/Results Medications: Active Medications Generic Name Dose Route Start Last Admin Trade Name Freq PRN Reason Stop Dose Admin Aspirin 81 mg 12/17/21 09:00 Aspirin 81 Mg Enteric Tablet PO [facility] Famotidine 40 mg
--- NOTE | 2021-12-17 08:42 | PCPTNOTE ---
Attempted to see patient for PT, however patient declined. Patient reported not now I want to rest, and went back to sleep.
--- NOTE | 2021-12-17 10:06 | PM.IMPN ---
Progress Note: A&P Assessment and Plan (1) Stroke: Code(s): I63.9 - Cerebral infarction, unspecified Status: Acute Assessment and Plan: -head CT was read as the following 1. Infarcts in the occipital lobes, left worse than right, likely acute. 2. Chronic encephalomalacia in left temporal and frontal lobes. 3. Moderate nonspecific cerebral white matter disease, which likely represents chronic small vessel ischemic disease - neurology has been consulted. CTA head and neck and MRI ordered for new recommendations. -The patient was started on an aspirin. -PT and OT evaluation greatly appreciated. - Check A1c, lipid panel - start the patient on low-dose statin (2) BPH (benign prostatic hyperplasia): Code(s): N40.0 - Benign prostatic hyperplasia without lower urinary tract symptoms Status: Acute Assessment and Plan: -the patient is no longer on any medication. (3) Tobacco abuse: Code(s): Z72.0 - Tobacco use Status: Acute Assessment and Plan: -The patient is on a nicotine patch. (4) Substance abuse: Code(s): F19.10 - Other psychoactive substance abuse, uncomplicated Status: Acute Assessment and Plan: The patient is currently on morphine b.i.d. (5) Gastroesophageal reflux disease: Code(s): K21.9 - Gastro-esophageal reflux disease without esophagitis Status: Acute Assessment and Plan: continue with famotidine. Plan Patient has a wound to his right heel and he has necrotic tissue on his toes. Wound care consultation was placed. Subjective Date/time seen: 12/17/21 10:06 Interval history: Danish Adamson is a 71 year old male with a history of chronic smoking and above the knee amputation of the left leg who presented due to balance issues. Patient presented to the ED due to balance issues for the past week. He also reported intermittent visual symptoms, that were transient and self-resolved. In the ED, patient appeared confused and did not know why he was in the hospital. CT head showed findings concerning for acute bioccipital stroke. Family reports he is still not acting like himself. He is still confused and seems to have some visual deficits. 12/17/2021 patient was seen during the morning rounds today. No new overnight complaints. Patient responds to painful stimuli. Difficulty in following verbal commands. No shortness with a chest pain. Review of Systems Review of Systems: All systems reviewed & are unremarkable except as noted in HPI and below ( the history and physical examination.) ENT: Reports Normal hearing present Neurologic: Reports Normal hearing present Exam Const: General: cooperative, well developed, awake, Physically active, average body habitus, well nourished and overweight Nutritional Appearance: average body habitus, well nourished and overweight Orientation/consciousness: oriented to person, oriented to place, oriented to time and patient oriented x3 Limitations: no limitations HENMT: Head: normal to inspection, No palpable skull fracture present, normocephalic and atraumatic Ears: hearing grossly normal bilaterally and external ears normal Face/Nose/Sinus: Normal external nose present and Normal nares present Eyes: General: appearance normal, both eyes and all related structures Alignment and Position: alignment normal Periorbital: periorbital findings normal Eyelids: eyelids normal Sclera: sclerae normal Pupils: Equal, round and reactive pupils present EOM: EOMs intact bilaterally Neck: Neck: normal visual inspection, full ROM, no lymphadenopathy, trachea midline and supple Chest: Chest palpation & inspection: normal inspection of the chest Resp: Effort & Inspection: normal respiratory effort Auscultation: clear to auscultation bilaterally and wheezes Percussion: percussion normal Cardio: Palpation: normal PMI Rate: regular rate Rhythm: regular rhythm Heart sounds: S1 normal h
[2021-12-17] MEDS: ASPIRIN 81 MG ENTERIC TABLET PO (11:36)
[2021-12-17] MEDS: FAMOTIDINE 20 MG TABLET 40 MG PO ×2 (11:37→17:49)
[2021-12-17] MEDS: SIMVASTATIN 20 MG TABLET PO (11:37)
[2021-12-17] MEDS: NICOTINE (*PBKC) 21 MG PATCH 1 PATCH TRANSDERM (11:37)
[2021-12-17] MEDS: SILVERGEL (ELTA) 45 ML 1 APPLIC TOPICAL (11:43)
[2021-12-17 11:52] LABS: NT Pro B Type Natriuretic Pept 25400 pg/mL (5-100)
[2021-12-17 13:12] LABS: D Dimer > 20.00 ug/mL (<0.48)
--- NOTE | 2021-12-17 14:03 | PCPTNOTE ---
Attempted to see patient for PT this afternoon, however patient was getting an ekg testing.
--- NOTE | 2021-12-17 14:04 | PM.CNPUL ---
Assessment and Plan Assessment and plan (1) Hypoxia: Code(s): R09.02 - Hypoxemia Status: Acute Assessment and Plan: Patient history of current tobacco use (56 PY), carries a diagnosis of COPD on Symbicort and with moderate centrilobular emphysema on a CT scan of his head and neck this admission. Presented to the hospital 12/15 with acute stroke and was on room air initially and today required 5 L NC. ABG today on 5 L demonstrates a pH of 7.44/44/60. Admission bicarb was 33. Etiology of hypoxemia includes: pulmonary embolism, aspiration, arrythmia, fluid overload, atelectasis and COPD. Patient with positive D-dimer and I ordered a CT angiogram of the chest stat. I have ordered upper and lower extremity Dopplers. Patient gives a history of choking on his food over the last 2 years. He has had a recent stroke and he may be aspirating. At this time I have ordered NPO diet and put a consult in for speech therapy. Since he has new oxygen requirements I will send blood cultures and initiate Zosyn. Patient has an elevated BNP. Has bibasilar crackles but no miky evidence of pulmonary edema or lower extremity edema. EKG has been ordered. We are waiting for an echocardiogram to assess his LV function. CT angiogram of the chest to look for any evidence of pulmonary edema and or fluid overload. Will hold off on Lasix at this time. Patient has a chest x-ray with bibasilar atelectasis. I have encouraged patient to take deep breaths, ordered incentive spirometry. Out of bed as tolerated. Patient has COPD but was on room air when he 1st presented so chronic hypoxemia from COPD was not present on admission. there is no evidence of hypercarbic respiratory failure. He is not wheezing currently. I will start him on ipratropium nebulizers q.4 hours at this time. I will hold off on beta agonist as he is tachycardic at this time. If it is deemed that he needs beta agonist would use levalbuterol. I do not think he needs systemic or inhaled steroids at this time. Goal oxygen saturation 90-94%. Will follow with you. Discussed with Dr. Avila. History of Present Illness History of Present Illness Consult date: 12/17/21 Chief complaint: Occipital CVA Narrative: 12/17/2021: This is a new pulmonary consult for hypoxemia. 71-year-old man with a history of current tobacco use (56 PY), carries a diagnosis of COPD on Symbicort and moderate centrilobular emphysema on a CT scan of his head and neck this admission, history of kidney cancer, history lymphoma, history of left AKA for leg infection presented on 12/15/2021 with altered mental status and visual changes and found to have acute bilateral cerebral infarcts. MRI brain showed acute infarct involving the R caudate, bilateral posterior frontal lobes, bilateral parietal lobes, bilateral occipital lobes, bilateral posterior temporal lobes, and bilateral cerebellum. CTA showed 24% stenosis of proximal R ICA and 0% stenosis of proximal L ICA. in the emergency room the patient was on room air with saturations 91-97%. Patient's bicarbonate level on admission was 33. On 12/16/[address] of his head and neck and the apices of his lungs demonstrate moderate centrilobular emphysema. On 12/17 and required 5 L nasal cannula. Patient had a blood gas with a pH of 7.44/44/60 on 5 L nasal cannula. Is difficult to get an accurate information from the patient and I did talk to his daughter Jenae. The patient tells me he has COPD and the daughter also agrees with this. He has been on Symbicort for many years. He he is also states that is the Symbicort helps him. He denies wheezes, contact cough, makes phlegm 1 to 2 times a day and never has had hemoptysis. He has a left AKA and rarely uses his prosthesis. He uses an electric chair to get around the house. He has not been admitted to the hospital for COPD in the past. He is not on home oxygen. Patient is a s
--- NOTE | 2021-12-17 14:16 | ECG_ITS ---
Measurements Intervals [place] Rate: 125 P: 77 CO: 140 QRS: 18 QRSD: 98 T: 79 QT: 290 QTc: 419 Interpretive Statements SINUS TACHYCARDIA BORDERLINE ST-T WAVE ABNORMALITY- INF/HIGH LAT LEADS BASELINE ARTIFACT- I, II, III, V4-V6 ABNORMAL ECG COMPARED TO ECG 12/15/2021 15:36:49 SINUS TACHYCARDIA NOW PRESENT T-WAVE ABNORMALITY NOW PRESENT Electronically Signed On 12-17-2021 16:21:12 BATCH BLENDER by Norman Williamson D.O.
[2021-12-17] MEDS: MORPHINE SULFATE (*CRX) 30 MG TABCR PO (17:49)
[2021-12-17] MEDS: IPRATROPIUM BR 0.02% INH SOLN 0.5 MG/2.5 ML VIAL INHALATION (20:42)
[2021-12-18] VITALS (19 sets, daily range): BP systolic 140–149; BP diastolic 65–84; PULSE 94–116; RESP 12–20; TEMP 36.5–36.6; O2SAT 89–100
[2021-12-18] MEDS: IPRATROPIUM BR 0.02% INH SOLN 0.5 MG/2.5 ML VIAL INHALATION ×5 (01:15→19:44)
[2021-12-18 05:06] LABS: Hematocrit 41.5 % (42.0-52.0); Hemoglobin 13.3 g/dL (14.0-18.0); Immature Platelet Fraction Pct 9.3 % (0.9-11.2); Mean Corpuscular Hemoglobin 25.9 pg (26-34); Mean Corpuscular Volume 80.7 fl (80-100); Mean Platelet Volume 10.7 fl (7.4-10.4); Platelet Count Result 113 k/mm3 (150-375); Red Blood Count 5.14 M/mm3 (4.6-6.20); Red Cell Distribution Width 14.9 % (11.5-14.5); White Blood Count 15.3 K/mm3 (4.5-10.0)
--- NOTE | 2021-12-18 07:00 | PC.NURSE ---
Md Hoover called consulted per MD Avila r/t elevated bnp [id number]
[2021-12-18] MEDS: ENOXAPARIN 40 MG/0.4 ML SYRINGE SUB-Q (09:14)
[2021-12-18] MEDS: NICOTINE (*PBKC) 21 MG PATCH 1 PATCH TRANSDERM (09:15)
[2021-12-18] MEDS: ASPIRIN 81 MG ENTERIC TABLET PO (09:40)
[2021-12-18] MEDS: SILVERGEL (ELTA) 45 ML 1 APPLIC TOPICAL (09:40)
[2021-12-18] MEDS: ATORVASTATIN 40 MG TABLET PO (09:40)
[2021-12-18] MEDS: FAMOTIDINE 20 MG TABLET 40 MG PO ×2 (09:40→16:06)
[2021-12-18] MEDS: MORPHINE SULFATE (*CRX) 30 MG TABCR PO ×2 (09:40→17:33)
--- NOTE | 2021-12-18 10:20 | PM.IMPN ---
Progress Note: A&P Assessment and Plan (1) Stroke: Code(s): I63.9 - Cerebral infarction, unspecified Status: Acute Assessment and Plan: Patient presents with altered mental status. Brain CT showing acute infarcts. MRI brain showed acute infarct involving the R caudate, bilateral posterior frontal lobes, bilateral parietal lobes, bilateral occipital lobes, bilateral posterior temporal lobes, and bilateral cerebellum. CTA showed 24% stenosis of proximal R ICA and 0% stenosis of proximal L ICA. Given multiple infarcts, consider embolic etiology. Echo showing EF of 35% no mention of LV thrombus. Telemetry reviewed and not showing any evidence of atrial fibrillation. Cardiology has been consulted. Continue aspirin. Will change Zocor to high dose statin. Appreciate Neurology input. PT and OT. Speech therapy has also been ordered given the elevated white count and now hypoxia. Concern for aspiration. Patient is NPO. (2) LV dysfunction: Code(s): I51.9 - Heart disease, unspecified Status: Acute Assessment and Plan: Echocardiogram shows LV systolic function reduced with EF of 35-40% and grade 1 diastolic dysfunction. No evidence of intracardiac shunt. No significant valvular disease. No evidence of CHF. Patient would benefit from beta blockade. Cardiology has been consulted and we will defer to Cardiology at this time. (3) Hypoxia: Code(s): R09.02 - Hypoxemia Status: Acute Assessment and Plan: As above. Patient now on 5 L of oxygen. CTA is negative for pulmonary embolism but does show large hiatal hernia, emphysema and bilateral lower lobe infiltrates. Concern for aspiration. Pulmonary is consulted and has added Zosyn. Swallow study has been ordered. Continue Atrovent. Further recommendation as course dictates. Venous doppler pending (4) Gastroesophageal reflux disease: Code(s): K21.9 - Gastro-esophageal reflux disease without esophagitis Status: Acute Assessment and Plan: Stable. Continue Pepcid. (5) BPH (benign prostatic hyperplasia): Code(s): N40.0 - Benign prostatic hyperplasia without lower urinary tract symptoms Status: Acute Assessment and Plan: Stable. Patient not on medications for BPH. Will check a bladder scan to exclude urine retention. (6) Tobacco abuse: Code(s): Z72.0 - Tobacco use Status: Acute Assessment and Plan: Patient unable to receive Education at this time. (7) Chronic pain syndrome: Code(s): G89.4 - Chronic pain syndrome Status: Acute Assessment and Plan: Patient with chronic pain and takes MS Contin chronically. This has been continued. (8) Open wound of heel: Code(s): S91.309A - Unspecified open wound, unspecified foot, initial encounter Status: Acute Assessment and Plan: HANNA showing moderately decreased right HANNA consistent with arerial occlusive disease. Patient has a wound to his right heel and he has necrotic tissue on his toes. Wound care following. Continue ASA and statin. Smoking cessation is a must. Subjective Date/time seen: 12/18/21 10:20 Interval history: 71yo male with a history of tobacco abuse, lymphoma, renal cell and BPH here for altered mental status. MRI brain showed multiple CVAs. CTA showed 24% stenosis of proximal R ICA and 0% stenosis of proximal L ICA. Assuming care. Chart reviewed. Patient is alert but confused and unable to provide accurate history. Review of Systems Review of Systems: ROS unobtainable: Yes unobtainable due to mental status Exam Narrative: AF 97.7 140/65 113 18 92% 5L Gen - NARD lying semi-recumbent in bed Chest - Bibasilar inspiratory crackles. CV - Tachycardic but regular. Telemetry showing sinus tachycardia. Abd - Soft. Nontender. Nondistended. Positive bowel sounds. Ext - Left AKA. No edema to the right lower extremity.
--- NOTE | 2021-12-18 10:44 | PCSTNOTE ---
Bedside swallowing evaluation. Consistencies trialed include: thin liquid by spoon, thin liquid by cup, pureed by spoon, solid by spoon. Patient exhibited no signs or symptoms of aspiration except for one coughing episode approximately 3 minutes after completion of evaluation. Per family and nursing patient has been coughing periodically since admission. MD contacted, and states that patient is to remain NPO until a modified barium swallow study can be completed. Thank you for the referral of this patient.
--- NOTE | 2021-12-18 12:40 | PCSTNOTE ---
Modified barium swallow study (MBSS) completed. Patient cooperative but poor historian and demonstrates questionable judgement and impulsivity. Poor fitting lower denture. No penetration or aspiration observed during MBSS. Some coughing during study after swallows but not predictable or consistent. Patient is still at risk for aspiration due to decreased strength, difficulty with self mobility, apparent impaired judgement, and known respiratory prob;ems. Recommend regular diet (level 7) (easy to chew) and nectar thickened liquids. Swallowing precautions documented. Thank you for the referral of this patient.
--- NOTE | 2021-12-18 14:14 | PM.CNCAR ---
Assessment and Plan Assessment and plan (1) LV dysfunction: Code(s): I51.9 - Heart disease, unspecified Status: Acute Plan This is a 71-year-old smoker who has had strokes and a multi vascular distribution. 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 He did appears to have physical exam evidence of peripheral vascular disease as well. He was found on echo to have asymptomatic left ventricular systolic dysfunction. He has a this. He is in sinus rhythm and does not have any evidence of intracardiac shunting on echo. At this point I am going to recommend starting guideline directed medical therapy for LV systolic dysfunction in the way of metoprolol, ARB and spironolactone. We will follow him with you while he is in the hospital likely we will consider noninvasive ischemia testing with a Lexiscan nuclear study since the overwhelming likelihood appears to be that we are looking at ischemic LV dysfunction here. He is a frail gentleman that is a poor candidate for an invasive angiogram at my opinion. Aspirin and statin therapy have already been initiated by the primary team Anand Hoover MD [facility] History of Present Illness History of Present Illness Consult date/time: 12/18/21 14:14 Reason For Visit: Occipital CVA Narrative: This is a 71-year-old man unknown to me prior to this consultation today. I am seeing at the request of the hospitalist because of echocardiographic findings and a study that I read yesterday. The patient says that he is not known to have any cardiac problems before this and his daughter was in the room says that she can not remember any prior cardiac issues. He came to the [facility] a couple of days ago because of symptoms of mental status alterations and confusion. Apparently he has been found to have evidence of ischemic strokes in multi vascular pattern. He is reporting some ongoing difficulty with weakness of his left arm. He does not have any other specific complaints at this time. Because of the evidence of CVA is a neurology consult was obtained he had an echocardiogram done for that reason which I read yesterday. He does have moderate left ventricular systolic dysfunction with an ejection fraction of about 35%. There was no significant valvular dysfunction. Agitated saline contrast injection did not show any intracardiac shunting. The quality of the study was adequate but not ideal because of poor patient cooperation with the attending anesthesiologist. He denies having any symptoms of chest pain pressure or heaviness he denies any orthopnea PND or lower extremity edema. 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 He is active cigarette smoker and denies any knowledge of being diabetic. He is not taking any medication at home that would be the pertinent LV dysfunction his medication list at home and appears to occlude Aleve famotidine and morphine. Review of Systems Constitutional: Constitutional: Reports fatigue Eyes: Eyes: Reports no additional eye complaints ENT: Reports system reviewed and no additional complaints, except as documented Cardiovascular: Cardiovascular: Reports no additional cardiovascular complaints Respiratory: Respiratory: Reports dyspnea on exertion Gastrointestinal: Gastrointestinal: Reports no additional gastrointestinal complaints Musculoskeletal: Musculoskeletal: Reports arthralgias Integumentary/Breasts: Skin/Breast: Reports system reviewed and no additional complaints, except as docu Neurologic: Reports as per HPI and Reports confusion Endocrine: Endocrine: Reports no additional endocrine complaints Hematologic/Lymphatic: Hematologic/Lymphatic: Reports no additional hematologic/lymphatic complaints Allergic/Immunologic: Allergic/Immunologic: Reports no additional allergic/immu
--- NOTE | 2021-12-18 15:23 | PCPTNOTE ---
The patient treatment was not able to be completed on 12/18/21 due to Pt having a code called on him. Holding therapy per RN. Will plan to continue treatment per plan of care.
--- NOTE | 2021-12-18 15:50 | PC.NURSE ---
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 Rapid response was called. When provider arrived, results of the ultrasounds were reviewed and it was noted that there was a venous thrombosis in the right brachial vein and left cephalic vein. This information was not called to the provider or the nurse.
[2021-12-18] MEDS: METOPROLOL SUCCINATE EXT REL 50 MG TABCR PO (16:05)
--- NOTE | 2021-12-18 18:25 | PM.PNPUL ---
Progress Note: A&P Assessment and Plan (1) Hypoxia: Code(s): R09.02 - Hypoxemia Status: Acute Assessment and Plan: COPD, heavy tobacco use and still smoking, (56 PY), on Symbicort and with moderate centrilobular emphysema on a CT scan of his head and neck this admission. Admitted 12/15 with acute stroke, was on room air initially, 12/17 required 5 L NC.? ABG today on 5 L demonstrates a pH of 7.44/44/60.? Admission bicarb? was 33. Etiology of hypoxemia includes:? pulmonary embolism, aspiration, arrhythmia, fluid overload, atelectasis? and COPD. Patient with positive D-dimer; CTA chest = No PE. No pulmonary embolus. Sensitivity and specificity are moderately decreased by motion artifact. Airspace and groundglass opacities in the lower lobes, consistent with atelectasis versus pneumonia. Moderate emphysema. Large sliding hiatal hernia. Mild mediastinal lymphadenopathy, likely reactive. Dopplers: 12/17 Venous thrombosis in the right brachial vein and left cephalic vein. 12/17 . Patent bilateral lower extremity veins. No evidence of deep venous thrombosis. Right peroneal vein difficult to visualize. Patient gives a history of choking on his food over the last 2 years; Had a recent stroke and he may be aspirating.? NPO and Speech consult. Since he has new oxygen requirements I will send blood cultures and initiate Zosyn. Patient has an elevated BNP.? Has bibasilar crackles but no miky evidence of pulmonary edema or lower extremity edema. ? 12/17/21 Echo : ??Technically difficult exam, uncooperative patient. ? 2. Mild left ventricular enlargement with moderate systolic dysfunction and grade 1 diastolic noncompliance. ? 3. Aortic valve sclerosis without stenosis. ? 4. Dilated left atrium. ? 5. Sinus rhythm. ? 6. Agitated saline contrast does not appear to show any intracardiac shunt. Patient has a chest x-ray with bibasilar atelectasis. ?He is encouraged to take deep breaths, use incentive spirometry.? Out of bed as tolerated. Patient has COPD but was on room air when he initially presented so chronic hypoxemia from COPD was not present on admission.? No evidence of hypercarbic respiratory failure.? He is not wheezing currently.? He has been started on ipratropium nebulizers q.4 hours at this time.? Will hold off on beta agonist as he is tachycardic at this time.? If he needs beta agonist, would use levalbuterol.?He does not need systemic or inhaled steroids at this time. Goal oxygen saturation 90-94%. Subjective Date/time seen: 12/18/21 18:25 Interval history: hospital follow up visit: 71-year-old man with a history of current tobacco use (56 PY),? carries a diagnosis of COPD on Symbicort and moderate centrilobular emphysema on a CT scan of his head and neck this admission,? history of kidney cancer, history lymphoma, history of left AKA for leg infection presented on 12/15/2021 with altered mental status and visual changes and found to have? acute bilateral cerebral infarcts. MRI brain showed acute infarct involving the R caudate, bilateral posterior frontal lobes, bilateral parietal lobes, bilateral occipital lobes, bilateral posterior temporal lobes, and bilateral cerebellum. CTA showed 24% stenosis of proximal R ICA and 0% stenosis of proximal L ICA. In ER, patient was on room air with saturations 91-97%. Bicarbonate level on admission was 33.? ? On 12/16/[address] the patient [address] a CT of his head and neck and the apices of his lungs demonstrate moderate centrilobular emphysema. On 12/17 and required 5 L nasal cannula.? Patient had a blood gas with a pH of 7.44/44/60? on? 5 L nasal cannula. It is difficult to get an accurate information from the patient. The patient tells me he has COPD and the daughter also agrees with this.? He has been on Symbicort for many years.? He he is also states that is the Symbicort helps him.? He denies wheezes, contact cough, makes phlegm 1 to 2 t
[2021-12-18] MEDS: HALOPERIDOL LACTATE 5 MG/ML VIAL 2.5 MG IM (22:41)
[2021-12-19] VITALS (13 sets, daily range): BP systolic 115–145; BP diastolic 56–84; PULSE 78–114; RESP 12–18; TEMP 36.6; O2SAT 92–96
[2021-12-19] MEDS: HALOPERIDOL LACTATE 5 MG/ML VIAL IM (01:02)
[2021-12-19] MEDS: HALOPERIDOL LACTATE 5 MG/ML VIAL 10 MG IM (01:52)
[2021-12-19] MEDS: MORPHINE SULFATE (*CRX) 30 MG TABCR PO ×2 (08:06→18:18)
[2021-12-19] MEDS: SPIRONOLACTONE 25 MG TABLET PO (08:06)
[2021-12-19] MEDS: ATORVASTATIN 40 MG TABLET PO (08:07)
[2021-12-19] MEDS: ENOXAPARIN 40 MG/0.4 ML SYRINGE SUB-Q (08:07)
[2021-12-19] MEDS: FAMOTIDINE 20 MG TABLET 40 MG PO ×2 (08:07→18:18)
[2021-12-19] MEDS: ASPIRIN 81 MG ENTERIC TABLET PO (08:07)
[2021-12-19] MEDS: METOPROLOL SUCCINATE EXT REL 50 MG TABCR PO (08:07)
[2021-12-19] MEDS: LOSARTAN POTASSIUM 25 MG TABLET PO (08:07)
[2021-12-19] MEDS: SILVERGEL (ELTA) 45 ML 1 APPLIC TOPICAL (08:08)
[2021-12-19] MEDS: IPRATROPIUM BR 0.02% INH SOLN 0.5 MG/2.5 ML VIAL INHALATION ×3 (10:08→16:24)
[2021-12-19 10:14] LABS: Alanine Aminotransferase 46 U/L (6-50); Albumin Level 2.8 g/dL (3.5-5.1); Alkaline Phosphatase 111 U/L (38-126); Anion Gap 9 mmol/L (8-16); Aspartate Amino Transferase 78 U/L (17-59); Bilirubin,Total 1.6 mg/dL (0.2-1.3); Blood Urea Nitrogen 22 mg/dL (9-20); Calcium 8.1 mg/dL (8.4-10.2); Carbon Dioxide 32 mmol/L (22-30); Chloride 91 mmol/L (98-107); Estimated CRCL calculation 60 ml/min; Estimated Glomerular Filt Rate > 60; Glucose 114 mg/dL (65-110); Magnesium 1.7 mg/dL (1.6-2.3); Phosphorus 2.4 mg/dL (2.5-4.5); Potassium 3.4 mmol/L (3.4-5.0); Sodium 132 mmol/L (137-145)
[2021-12-19 10:15] LABS: Basophils Percent Auto 0.3 % (0.2-1.2); Eosinophils Percent Auto 0.1 % (0-4.4); Hematocrit 39.7 % (42.0-52.0); Hemoglobin 13.1 g/dL (14.0-18.0); Immature Granulocyte Absolute 0.06 K/mm3 (0.00-0.031); Immature Granulocyte Percent A 0.4 % (0-0.5); Immature Platelet Fraction Pct 10.7 % (0.9-11.2); Lymphocytes Absolute Auto 0.75 K/mm3 (0.9-3.2); Lymphocytes Percent Auto 5.2 % (18.3-44.2); Mean Corpuscular Hemoglobin 25.9 pg (26-34); Mean Corpuscular Volume 78.6 fl (80-100); Mean Platelet Volume 10.4 fl (7.4-10.4); Monocytes Absolute Auto 0.8 K/mm3 (0.1-0.6); Monocytes Percent Auto 5.5 % (2.6-8.5); Neutrophils Absolute Auto 12.6 K/mm3 (1.3-6.7); Neutrophils Percent Auto 88.5 % (45.5-73.1); Platelet Count Result 118 k/mm3 (150-375); Red Blood Count 5.05 M/mm3 (4.6-6.20); Red Cell Distribution Width 14.6 % (11.5-14.5); White Blood Count 14.3 K/mm3 (4.5-10.0)
--- NOTE | 2021-12-19 11:59 | PCPTNOTE ---
Attempted therapy session, per [facility], requested therapy to come back due to this being the first time Pt has been able to sleep. will attempt again.
--- NOTE | 2021-12-19 13:06 | PM.PNCARD ---
Progress Note: A&P Assessment and Plan (1) LV dysfunction: Code(s): I51.9 - Heart disease, unspecified Status: Acute Plan 71-year-old man with: Altered mental status / confusion apparently evidence of several previous strokes. Found to have left ventricular systolic dysfunction appears to be asymptomatic of this. Started beta-keenan ARB and spironolactone for this yesterday. No evidence of decompensated heart failure. This does not appear to be the reason for his strokes in my opinion he is in sinus rhythm and does not have any evidence of an intracardiac shunt. We have not seen any evidence of atrial fibrillation on telemetry since he has been in the hospital. Anand Hoover MD [facility] Subjective Date/time seen: Date of service:12/19/21 13:06 Interval history: Follow-up visit in this 71-year-old man with: Echocardiographic evidence of LV systolic dysfunction but no evidence of really decompensated congestive heart failure. He was admitted to the hospital with confusion/altered mental status and appears to have had a number of previous strokes. Not sure of any of these are acute or. Patient last evening and this morning was apparently agitated. He is now sleeping in bed believe was sedated earlier. Started medical therapy for this yesterday as discussed in my consult note. Hemodynamics and oxygenation look fine. Exam Const: General: comfortable and no acute distress Other: Elderly gentleman sleeping in bed while on room air head of the bed elevated about 30-40 degrees. HENMT: Mouth: Yes moist mucous membranes Eyes: Sclera: sclerae normal Neck: Neck: supple Resp: Other: Breath sounds are diminished, prolonged expiratory phase no active wheezing or rales Cardio: Rate: regular rate Rhythm: regular rhythm GI: GI Palp: Yes Soft to palpation Auscultation: normal bowel sounds Skin: General skin exam: normal color Extrem: Other: no edema, status post left lower extremity amputation Objective Data Vital Signs Vital Signs: Vital Signs - 24 hr 12/18/21 14:04 12/18/21 15:26 12/18/21 16:05 Temperature 36.6 C Pulse Rate 94 108 H 108 H Respiratory Rate 18 12 16 Blood Pressure 145/84 H 149/84 H Pulse Oximetry 96 97 Oxygen Delivery Nasal Cannula Oxygen Flow Rate 5 12/18/21 16:15 12/18/21 16:00 12/18/21 19:47 Temperature Pulse Rate 114 H 112 H 108 H Respiratory Rate 16 16 Blood Pressure Pulse Oximetry Oxygen Delivery Oxygen Flow Rate 12/18/21 19:50 12/18/21 19:52 12/18/21 20:19 Temperature 36.6 C Pulse Rate 105 H 101 H 100 Respiratory Rate 16 16 20 Blood Pressure 147/80 H Pulse Oximetry 89 L 100 Oxygen Delivery Room Air Oxygen Flow Rate 12/18/21 20:00 12/18/21 20:00 12/19/21 05:47 Temperature 36.6 C Pulse Rate 116 H 100 Respiratory Rate 16 Blood Pressure 145/84 H Pulse Oximetry 100 92 Oxygen Delivery Nasal Cannula Oxygen Flow Rate 5 12/19/21 10:08 12/19/21 10:08 12/19/21 10:18 Temperature Pulse Rate 88 110 H Respiratory Rate 16 16 Blood Pressure Pulse Oximetry 92 Oxygen Delivery Nasal Cannula Oxygen Flow Rate 2 12/19/21 08:00 12/19/21 12:00 Temperature Pulse Rate 114 H 84 Respiratory Rate Blood Pressure Pulse Oximetry Oxygen Delivery Oxygen Flow Rate Intake/Output Intake/Output: Intake & Output 12/16/21 12/17/21 12/18/21 12/19/21 23:59 23:59 23:59 23:59 Intake Total 120 400 440 980 Output Total 250 650 845 750 Balance -130 250 -405 230 Meds/Results Medications: Active Medications Generic Name Dose Route Start Last Admin Trade Name Freq PRN Reason Stop Dose Admin Aspirin 81 mg 12/17/21 09:00 12/19/21 08:07 Aspirin 81 Mg Enteric Tablet PO 81 mg QAM EUSEBIO Administration Atorvastatin Calcium 40 mg 12/18/21 09:00 12/19/21 08:07 Atorvastatin 40 Mg Tablet PO 40 mg DAILY EUSEBIO Administration Enoxaparin Sodium 40 mg
--- NOTE | 2021-12-19 15:32 | PM.IMPN ---
Progress Note: A&P Assessment and Plan (1) Stroke: Code(s): I63.9 - Cerebral infarction, unspecified Status: Acute Assessment and Plan: Patient presents with altered mental status. Brain CT showing acute infarcts. MRI brain showed acute infarct involving the R caudate, bilateral posterior frontal lobes, bilateral parietal lobes, bilateral occipital lobes, bilateral posterior temporal lobes, and bilateral cerebellum. CTA showed 24% stenosis of proximal R ICA and 0% stenosis of proximal L ICA. Given multiple infarcts, consider embolic etiology. Echo showing EF of 35% but no mention of LV thrombus. Telemetry reviewed and not showing any evidence of atrial fibrillation. Cardiology consulted and following along. Continue aspirin and Lipitor. Appreciate Neurology input. Continue PT and OT. Speech therapy evaluated the patient and felt he could have oral intake; diet adjusted. He is still confused but did receive Haldol last night. Bladder may still be distended either causing his agitation or related to the haldol. Continue straight cath for now to try to avoid placing Mcfarlane. (2) DVT (deep venous thrombosis): Code(s): I82.409 - Acute embolism and thrombosis of unspecified deep veins of unspecified lower extremity Status: Acute Assessment and Plan: UE doppler showing left cephalic vein thrombosis (superficial) and right brachial vein thrombosis (deep). Pulmonary made aware. Not on anticoagulation. Add warm compresses. Heparin gtt? Discussed with pulmonary (3) LV dysfunction: Code(s): I51.9 - Heart disease, unspecified Status: Acute Assessment and Plan: Echocardiogram shows LV systolic function reduced with EF of 35-40% and grade 1 diastolic dysfunction. No evidence of intracardiac shunt. No significant valvular disease. No evidence of CHF. Cardiology consulted and appreciate their input. Toprol, Cozaar and Aldactone added. (4) Hypoxia: Code(s): R09.02 - Hypoxemia Status: Acute Assessment and Plan: As above. Patient was on 5 L of oxygen. CTA is negative for pulmonary embolism but does show large hiatal hernia, emphysema and bilateral lower lobe infiltrates. UE doppler as above. Concern for aspiration but ST cleared patient. Pulmonary was consulted and has added Zosyn. Continue Atrovent. Weaned to 2L. Further recommendation as course dictates. (5) Gastroesophageal reflux disease: Code(s): K21.9 - Gastro-esophageal reflux disease without esophagitis Status: Acute Assessment and Plan: Stable. Continue Pepcid. (6) BPH (benign prostatic hyperplasia): Code(s): N40.0 - Benign prostatic hyperplasia without lower urinary tract symptoms Status: Acute Assessment and Plan: As above. Patient not on medications for BPH. Add Flomax at night. Bladder scan as needed. (7) Tobacco abuse: Code(s): Z72.0 - Tobacco use Status: Acute Assessment and Plan: Patient unable to receive education at this time. (8) Chronic pain syndrome: Code(s): G89.4 - Chronic pain syndrome Status: Acute Assessment and Plan: Patient with chronic pain and takes MS Contin chronically. This has been continued. (9) Open wound of heel: Code(s): S91.309A - Unspecified open wound, unspecified foot, initial encounter Status: Acute Assessment and Plan: HANNA showing moderately decreased right HANNA consistent with arerial occlusive disease. Patient has a wound to his right heel and he has necrotic tissue on his toes. Wound care following. Continue ASA and statin. Smoking cessation is a must. Subjective Date/time seen: 12/19/21 15:32 Interval history: 71yo male with a history of tobacco abuse, lymphoma, renal cell and BPH here for altered mental status. MRI brain showed multiple CVAs. CTA showed 24% stenosis of proximal R ICA and 0% stenosis of proximal L ICA. Pa
[2021-12-19] MEDS: POTASSIUM/PHOSPHORUS/SODIUM 1.5 GM PACKET 1 PACKET PO (18:19)
[2021-12-19] MEDS: MAGNESIUM OXIDE 400 MG TABLET PO (18:19)
--- NOTE | 2021-12-19 22:20 | PCRCNOTE ---
Window of time for administration has passed. See next scheduled administration.
[2021-12-20] VITALS (12 sets, daily range): BP systolic 125–135; BP diastolic 57–69; PULSE 79–108; RESP 14–20; TEMP 36.5–37.1; O2SAT 93–97
[2021-12-20] MEDS: IPRATROPIUM BR 0.02% INH SOLN 0.5 MG/2.5 ML VIAL INHALATION ×4 (00:10→17:09)
[2021-12-20 06:20] LABS: Hematocrit 39.1 % (42.0-52.0); Hemoglobin 12.6 g/dL (14.0-18.0); Immature Platelet Fraction Pct 10.5 % (0.9-11.2); Mean Corpuscular HGB Conc 32.2 g/dl (32-36); Mean Corpuscular Volume 80.6 fl (80-100); Mean Platelet Volume 11.1 fl (7.4-10.4); Platelet Count Result 132 k/mm3 (150-375); Red Blood Count 4.85 M/mm3 (4.6-6.20); Red Cell Distribution Width 14.6 % (11.5-14.5); White Blood Count 11.2 K/mm3 (4.5-10.0)
[2021-12-20 06:30] LABS: Alanine Aminotransferase 41 U/L (6-50); Albumin Level 2.7 g/dL (3.5-5.1); Alkaline Phosphatase 106 U/L (38-126); Anion Gap 7 mmol/L (8-16); Aspartate Amino Transferase 59 U/L (17-59); Bilirubin,Total 1.2 mg/dL (0.2-1.3); Blood Urea Nitrogen 21 mg/dL (9-20); Carbon Dioxide 31 mmol/L (22-30); Chloride 95 mmol/L (98-107); Estimated CRCL calculation 51 ml/min; Estimated Glomerular Filt Rate 60; Glucose 76 mg/dL (65-110); Magnesium 1.8 mg/dL (1.6-2.3); Potassium 3.4 mmol/L (3.4-5.0); Sodium 133 mmol/L (137-145)
[2021-12-20] MEDS: SPIRONOLACTONE 25 MG TABLET PO (08:40)
[2021-12-20] MEDS: METOPROLOL SUCCINATE EXT REL 50 MG TABCR PO (08:40)
[2021-12-20] MEDS: FAMOTIDINE 20 MG TABLET 40 MG PO ×2 (08:41→16:41)
[2021-12-20] MEDS: LOSARTAN POTASSIUM 25 MG TABLET PO (08:41)
[2021-12-20] MEDS: ATORVASTATIN 40 MG TABLET PO (08:41)
[2021-12-20] MEDS: ASPIRIN 81 MG ENTERIC TABLET PO (08:41)
[2021-12-20] MEDS: ENOXAPARIN 40 MG/0.4 ML SYRINGE SUB-Q (08:41)
[2021-12-20] MEDS: SILVERGEL (ELTA) 45 ML 1 APPLIC TOPICAL (08:45)
[2021-12-20] MEDS: MAGNESIUM OXIDE 400 MG TABLET PO (08:48)
[2021-12-20] MEDS: MORPHINE SULFATE (*CRX) 30 MG TABCR PO (08:52)
--- NOTE | 2021-12-20 08:58 | PM.PNCARD ---
Progress Note: A&P Assessment and Plan (1) LV dysfunction: Code(s): I51.9 - Heart disease, unspecified Status: Acute Assessment and Plan: New diagnosis of LV systolic dysfunction with EF 40%. He is not in decompensated HF at this time. Continue medical therapy with losartan, spironolactone, metoprolol BP is stable with addition of the above medications Can optimize regimen with addition of jardiance when mental status improves and martell is removed Outpatient follow up in our office Cardiology will sign off please do not hesitate to contact us with any further questions Subjective Date/time seen: 12/20/21 08:58 Cardiolgoy follow up for cardiomyopathy Confused and fidgety this morning. Unable to obtain history from patient. He does deny shortness of breath and chest pain. Review of Systems Constitutional: Constitutional: Reports fatigue Eyes: Eyes: Reports no additional eye complaints ENT: Reports system reviewed and no additional complaints, except as documented Cardiovascular: Cardiovascular: Reports no additional cardiovascular complaints and Reports dyspnea on exertion Respiratory: Respiratory: Reports dyspnea on exertion Gastrointestinal: Gastrointestinal: Reports no additional gastrointestinal complaints Musculoskeletal: Musculoskeletal: Reports arthralgias Integumentary/Breasts: Skin/Breast: Reports system reviewed and no additional complaints, except as docu Neurologic: Reports as per HPI and Reports confusion Psychiatric: Psychiatric: Reports confusion Endocrine: Endocrine: Reports no additional endocrine complaints and Reports fatigue Hematologic/Lymphatic: Hematologic/Lymphatic: Reports no additional hematologic/lymphatic complaints Allergic/Immunologic: Allergic/Immunologic: Reports no additional allergic/immunologic complaints Exam Const: General: comfortable, no acute distress and confusion Orientation/consciousness: confusion Other: Elderly gentleman fidgeting about in bed. HENMT: Mouth: Yes moist mucous membranes Eyes: Sclera: sclerae normal Neck: Neck: supple and no JVD Other: No audible carotid bruit is heard Resp: Effort & Inspection: normal respiratory effort Auscultation: clear to auscultation bilaterally Other: Breath sounds are diminished, scattered rales Cardio: Rate: regular rate Rhythm: regular rhythm Other: No discernible murmur or gallop GI: Auscultation: normal bowel sounds Skin: General skin exam: normal color Neuro: General: confusion Other: Patient is alert and responsive, not oriented Extrem: Other: no edema, status post left lower extremity amputation Objective Data Vital Signs Vital Signs: Vital Signs - 24 hr 12/19/21 10:08 12/19/21 10:08 12/19/21 10:18 Temperature Pulse Rate 88 110 H Respiratory Rate 16 16 Blood Pressure Pulse Oximetry 92 Oxygen Delivery Nasal Cannula Oxygen Flow Rate 2 12/19/21 12:00 12/19/21 13:11 12/19/21 13:28 Temperature Pulse Rate 84 85 78 Respiratory Rate 16 16 Blood Pressure Pulse Oximetry Oxygen Delivery Oxygen Flow Rate 12/19/21 14:58 12/19/21 16:25 12/19/21 16:34 Temperature 36.6 C Pulse Rate 90 104 H 96 Respiratory Rate 12 16 16 Blood Pressure 115/56 L Pulse Oximetry 93 Oxygen Delivery Oxygen Flow Rate 12/19/21 16:00 12/19/21 20:00 12/19/21 21:33 Temperature 36.6 C Pulse Rate 80 96 98 Respiratory Rate 16 18 Blood Pressure 134/75 Pulse Oximetry 93 96 Oxygen Delivery Nasal Cannula Oxygen Flow Rate 2 12/20/21 00:10 12/20/21 00:22 12/20/21 05:20 Temperature 36.5 C Pulse Rate 79 80 Respiratory Rate 16 17 Blood Pressure 135/68 Pulse Oximetry 93 97 Oxygen Delivery Nasal Cannula Oxygen Flow Rate 2 12/20/21 05:20 12/20/21 05:39 12/20/21 07:34 Temperature Pulse Rate 84 81 100 Respiratory Rate 16 16 16 Blood Pressure Pulse Oximetry Oxygen Delivery Oxygen Fl
--- NOTE | 2021-12-20 10:52 | PCOTNOTE ---
Attempted to work with patient, patient unable to participate meaningfully. Patient's NC on bed, attempted several times to don on patient with patient refusing. Patient's O2 on room air approx. 72%. Patient instructed beeping noises are alerting him to wear his O2. Patient agreeable at that point to wear O2. Slow recovery to WNL, approx. 5 minutes with frequent cues to deep breathe. Patient observed to breathe normally, and eventually did recover to WNL. Patient placed on 4L with bed mobility. Patient Max A, not following commands consistently. Therapist attempted to engage patient in UE exercises, patient not assisting, but allowed PROM to RUE. Patient continued to lean to L side, requiring Mod-Max A for sitting balance due to patient falling asleep. Patient returned back to bed with alarm placed on zone 2. [employer] and RN notified OT attempted to see patient, with minimal success. Will continue plan of care for OT tomorrow 12/21/21.
--- NOTE | 2021-12-20 12:28 | PM.PNPUL ---
Progress Note: A&P Assessment and Plan (1) Hypoxia: Code(s): R09.02 - Hypoxemia Status: Acute Assessment and Plan: COPD, heavy tobacco use and still smoking, (56 PY), on Symbicort and with moderate centrilobular emphysema on a CT scan of his head and neck this admission. Admitted 12/15 with acute stroke, was on room air initially, 12/17 required 5 L NC.? ABG today on 5 L demonstrates a pH of 7.44/44/60.? Admission bicarb? was 33. Etiology of hypoxemia includes:? pulmonary embolism, aspiration, arrhythmia, fluid overload, atelectasis? and COPD. Patient with positive D-dimer; CTA chest = No PE. No pulmonary embolus. Sensitivity and specificity are moderately decreased by motion artifact. Airspace and groundglass opacities in the lower lobes, consistent with atelectasis versus pneumonia. Moderate emphysema. Large sliding hiatal hernia. Mild mediastinal lymphadenopathy, likely reactive. Dopplers: 12/17 Venous thrombosis in the right brachial vein and left cephalic vein. 12/17 . Patent bilateral lower extremity veins. No evidence of deep venous thrombosis. Right peroneal vein difficult to visualize. Patient gives a history of choking on his food over the last 2 years; Had a recent stroke and he may be aspirating.? NPO and Speech consult. Since he has new oxygen requirements I will send blood cultures and initiate Zosyn. Patient has an elevated BNP.? Has bibasilar crackles but no miky evidence of pulmonary edema or lower extremity edema. ? 12/17/21 Echo : ??Technically difficult exam, uncooperative patient. ? 2. Mild left ventricular enlargement with moderate systolic dysfunction and grade 1 diastolic noncompliance. ? 3. Aortic valve sclerosis without stenosis. ? 4. Dilated left atrium. ? 5. Sinus rhythm. ? 6. Agitated saline contrast does not appear to show any intracardiac shunt. Patient has a chest x-ray with bibasilar atelectasis. ?He is encouraged to take deep breaths, use incentive spirometry.? Out of bed as tolerated. Patient has COPD but was on room air when he initially presented so chronic hypoxemia from COPD was not present on admission.? No evidence of hypercarbic respiratory failure.? He is not wheezing currently.? He has been started on ipratropium nebulizers q.4 hours at this time.? Will hold off on beta agonist as he is tachycardic at this time.? If he needs beta agonist, would use levalbuterol.?He does not need systemic or inhaled steroids at this time. Goal oxygen saturation 90-94%. 12/18 No aspiration by MBSS. Lower extremity Dopplers negative. Upper extremity Dopplers with left cephalic and right brachial thrombus. 12/20 Patient denies any respiratory distress or shortness of breath but is confused. Walked into the room he had taken his oxygen off and his room air saturations were 67%. I placed him on 3 L nasal cannula saturations were 90%. Patient diuresed 935 mL yesterday. His white blood cell count is 11.2 and creatinine is 1.2. Regarding his new onset hypoxia which has improved from 5 L to 3 L nasal cannula now. He does have moderate to severe apical predominant centrilobular emphysema indicating he does have COPD. Bibasilar infiltrates on his CT scan of the chest consistent with possible aspiration/pneumonia and he is on Zosyn day 4 (negative MBSS). Would continue for 7 days. He does have decreased LV function and grade 1 diastolic dysfunction. elevated BNP but has no pedal edema, can consider more aggressive diuresis. he does have atelectasis on a CT scan of the chest which can cause hypoxemia. No evidence of pulmonary embolism on CT angiogram of the chest. No evidence of COPD exacerbation. will continue ipratropium nebulizer 0.5 mg q.4 hours. If patient's mental status improves he could be switched to and inhaled long-acting muscarinic antagonist. If the patient is discharged to another facility oxygen at rest, with exercise and at night per the facilities protocol. If he is discharged home he
--- NOTE | 2021-12-20 14:51 | PM.IMPN ---
Progress Note: A&P Assessment and Plan (1) Stroke: Code(s): I63.9 - Cerebral infarction, unspecified Status: Acute Assessment and Plan: Patient presents with altered mental status. Brain CT showing acute infarcts. MRI brain showed acute infarct involving the R caudate, bilateral posterior frontal lobes, bilateral parietal lobes, bilateral occipital lobes, bilateral posterior temporal lobes, and bilateral cerebellum. CTA showed 24% stenosis of proximal R ICA and 0% stenosis of proximal L ICA. Given multiple infarcts, consider embolic etiology. Echo showing EF of 35% but no mention of LV thrombus. Telemetry stopped by Cards. Cardiology and Neurology consulted and appreciate their input. Speech therapy evaluated the patient and felt he could have oral intake; diet adjusted. He is still confused. Blader distended with Mcfarlane placed. Continue aspirin and Lipitor. Continue PT and OT. Recommend placement. Add low dose Seroquel tonight. (2) DVT (deep venous thrombosis): Code(s): I82.409 - Acute embolism and thrombosis of unspecified deep veins of unspecified lower extremity Status: Acute Assessment and Plan: UE doppler showing left cephalic vein thrombosis (superficial) and right brachial vein thrombosis (deep). Pulmonary made aware. No plans for anticoagulation. Continue warm compresses. Plan to repeat US in 1 week to see if this propagates. (3) LV dysfunction: Code(s): I51.9 - Heart disease, unspecified Status: Acute Assessment and Plan: Echocardiogram shows LV systolic function reduced with EF of 35-40% and grade 1 diastolic dysfunction. No evidence of intracardiac shunt. No significant valvular disease. No evidence of CHF. Cardiology consulted and appreciate their input. Continue Toprol, Cozaar and Aldactone. (4) Hypoxia: Code(s): R09.02 - Hypoxemia Status: Acute Assessment and Plan: As above. Patient was on 5 L of oxygen. CTA is negative for pulmonary embolism but does show large hiatal hernia, emphysema and bilateral lower lobe infiltrates. UE doppler as above. Concern for aspiration but ST cleared patient. Pulmonary was consulted and Beto added. Continue Atrovent. Weaned to 3L. Suspect atelectasis. CHF seems less likely. Further recommendation as course dictates. (5) Gastroesophageal reflux disease: Code(s): K21.9 - Gastro-esophageal reflux disease without esophagitis Status: Acute Assessment and Plan: Stable. Continue Pepcid. (6) BPH (benign prostatic hyperplasia): Code(s): N40.0 - Benign prostatic hyperplasia without lower urinary tract symptoms Status: Acute Assessment and Plan: As above. Patient not on medications for BPH. Flomax added for urine retention. (7) Tobacco abuse: Code(s): Z72.0 - Tobacco use Status: Acute Assessment and Plan: Patient unable to receive education at this time. (8) Chronic pain syndrome: Code(s): G89.4 - Chronic pain syndrome Status: Acute Assessment and Plan: Patient with chronic pain and takes MS Contin chronically. This has been continued. Will cut dose back (9) Open wound of heel: Code(s): S91.309A - Unspecified open wound, unspecified foot, initial encounter Status: Acute Assessment and Plan: HANNA showing moderately decreased right HANNA consistent with arerial occlusive disease. Patient has a wound to his right heel and he has necrotic tissue on his toes. Wound care following. Continue ASA and statin. Smoking cessation is a must. Subjective Date/time seen: 12/20/21 14:51 Interval history: 71yo male with a history of tobacco abuse, lymphoma, renal cell and BPH here for altered mental status. MRI brain showed multiple CVAs. CTA showed 24% stenosis of proximal R ICA and 0% stenosis of proximal L ICA. Patient awakens easily but confused so unable to provide history. Per fam
--- NOTE | 2021-12-20 14:57 | PCPTNOTE ---
Attempted to see patient for PT, however patient is not appropriate for PT at this time. Patient is very lethargic and unable to participate in therapy. O2 SATs 90%. RN aware.
[2021-12-20] MEDS: POTASSIUM CHLORIDE 20 MEQ TABLET PO (15:43)
[2021-12-20] MEDS: MORPHINE SULFATE (*CRX) 15 MG TABCR PO (16:43)
[2021-12-20] MEDS: QUEtiapine FUMARATE 12.5 MG TABLET PO (20:34)
[2021-12-20] MEDS: TAMSULOSIN HCL 0.4 MG CAPSULE PO (20:34)
[2021-12-21] VITALS (8 sets, daily range): BP systolic 116–139; BP diastolic 63–76; PULSE 83–96; RESP 14–18; TEMP 36.4–36.8; O2SAT 91–96
[2021-12-21] MEDS: IPRATROPIUM BR 0.02% INH SOLN 0.5 MG/2.5 ML VIAL INHALATION ×2 (00:45→09:40)
--- NOTE | 2021-12-21 01:05 | PCRCNOTE ---
Window of time for administration has passed. See next scheduled administration.
[2021-12-21 06:00] LABS: Albumin Level 2.8 g/dL (3.5-5.1); Anion Gap 10 mmol/L (8-16); Blood Urea Nitrogen 24 mg/dL (9-20); Carbon Dioxide 31 mmol/L (22-30); Chloride 95 mmol/L (98-107); Estimated CRCL calculation 60 ml/min; Estimated Glomerular Filt Rate > 60; Glucose 83 mg/dL (65-110); Phosphorus 3.2 mg/dL (2.5-4.5); Potassium 3.7 mmol/L (3.4-5.0); Sodium 136 mmol/L (137-145)
[2021-12-21] MEDS: MORPHINE SULFATE (*CRX) 15 MG TABCR PO ×2 (09:15→17:35)
[2021-12-21] MEDS: ENOXAPARIN 40 MG/0.4 ML SYRINGE SUB-Q (09:16)
[2021-12-21] MEDS: MAGNESIUM OXIDE 400 MG TABLET PO (09:16)
[2021-12-21] MEDS: SPIRONOLACTONE 25 MG TABLET PO (09:16)
[2021-12-21] MEDS: FAMOTIDINE 20 MG TABLET 40 MG PO ×2 (09:16→17:35)
[2021-12-21] MEDS: ATORVASTATIN 40 MG TABLET PO (09:16)
[2021-12-21] MEDS: ASPIRIN 81 MG ENTERIC TABLET PO (09:16)
[2021-12-21] MEDS: METOPROLOL SUCCINATE EXT REL 50 MG TABCR PO (09:16)
[2021-12-21] MEDS: SILVERGEL (ELTA) 45 ML 1 APPLIC TOPICAL (09:17)
[2021-12-21] MEDS: LOSARTAN POTASSIUM 25 MG TABLET PO (09:17)
--- NOTE | 2021-12-21 10:26 | PCOTNOTE ---
Patient unable to meaningfully participate. Dr. Nettles present and assisted patient to EOB with Max Ax2. Patient maintaining sitting balance with CGA, but unwilling to participate in UE exercises seated EOB or complete washing face with setup. Patient became agitated and told therapist Get the fuck away from me. Patient consoled, and laid back down in bed. Patient not seen this AM for OT.
--- NOTE | 2021-12-21 12:14 | PCNFU ---
Nutrition Follow-Up Complete: Inadequate Oral Intake as related to CVA as evidenced by poor po intake reported. goal: Adequate Intake of at least 75% of meals/supplements Patient is not meeting goal. We will continue current goal. Pt current nutrition is Heart Healthy/Easy To Chew, Level 7 with Mild Thick liquids, Level2. Last recorded weight is 71.2 kg, no new weight to report. Bowel Motility: No BM reported since admit. Labs Reviewed:BUN 24, Alb 2.8,Na 136 Meds Noted:Mag-ox, Lipitor, Zosyn, Seroquel, Lovenox,Pepcid Skin: WNL Additional Notes: Patient had MBS on 12/18 recommend modified diet. Oral Intake has been poor 0-25% of most meals. Ensure compact BID was been ordered since 12/16 providing an additional 220 kcals and 9 gms protein. PO intake encouraged. Agree with diet orders. Monitoring: RD will monitor every 3 days.
--- NOTE | 2021-12-21 13:19 | PCRCNOTE ---
0400 nebulizer treatment not given. Window of time for administration has passed. See next scheduled administration.
--- NOTE | 2021-12-21 13:45 | PM.IMPN ---
Progress Note: A&P Assessment and Plan (1) Stroke: Code(s): I63.9 - Cerebral infarction, unspecified Status: Acute Assessment and Plan: Patient presents with altered mental status. Brain CT showing acute infarcts. MRI brain showed acute infarct involving the R caudate, bilateral posterior frontal lobes, bilateral parietal lobes, bilateral occipital lobes, bilateral posterior temporal lobes, and bilateral cerebellum. CTA showed 24% stenosis of proximal R ICA and 0% stenosis of proximal L ICA. Given multiple infarcts, consider embolic etiology. Echo showing EF of 35% but no mention of LV thrombus. Telemetry stopped by Cards. Cardiology and Neurology consulted and appreciate their input. Speech therapy evaluated the patient and felt he could have oral intake; diet adjusted. He is still confused but less somnolent. Continue low dose Seroquel. Blader distended so Mcfarlane placed. Continue aspirin and Lipitor. Continue PT and OT. Placement being arranged (2) DVT (deep venous thrombosis): Code(s): I82.409 - Acute embolism and thrombosis of unspecified deep veins of unspecified lower extremity Status: Acute Assessment and Plan: UE doppler showing left cephalic vein thrombosis (superficial) and right brachial vein thrombosis (deep). Pulmonary made aware. No plans for anticoagulation. Continue warm compresses. Plan to repeat US in 1 week to see if this propagates. (3) LV dysfunction: Code(s): I51.9 - Heart disease, unspecified Status: Acute Assessment and Plan: Echocardiogram shows LV systolic function reduced with EF of 35-40% and grade 1 diastolic dysfunction. No evidence of intracardiac shunt. No significant valvular disease. No evidence of CHF. Cardiology consulted and appreciate their input. Continue Toprol, Cozaar and Aldactone. (4) Hypoxia: Code(s): R09.02 - Hypoxemia Status: Acute Assessment and Plan: As above. Patient was on 5 L of oxygen. CTA is negative for pulmonary embolism but does show large hiatal hernia, emphysema and bilateral lower lobe infiltrates. UE doppler as above. Speech therapy felt patine could eat safely but jovel not exclude aspiration but no fevers. Pulmonary was consulted and Zosyn added. Continue Atrovent. Weaned to 2L. Suspect atelectasis. CHF seems less likely. Further recommendation as course dictates. Completed 7 days of abx. (5) Gastroesophageal reflux disease: Code(s): K21.9 - Gastro-esophageal reflux disease without esophagitis Status: Acute Assessment and Plan: Stable. Continue Pepcid. (6) BPH (benign prostatic hyperplasia): Code(s): N40.0 - Benign prostatic hyperplasia without lower urinary tract symptoms Status: Acute Assessment and Plan: As above. Patient not on medications for BPH. Flomax added for urine retention. Now hematuria felt related to Mcfarlane trauma. Flush until clear. Mcfarlane trial once more awake and alert. (7) Tobacco abuse: Code(s): Z72.0 - Tobacco use Status: Acute Assessment and Plan: Patient unable to receive education at this time. (8) Chronic pain syndrome: Code(s): G89.4 - Chronic pain syndrome Status: Acute Assessment and Plan: Patient with chronic pain and takes MS Contin chronically. This has been continued. We did cut back on the dose of his MS Contin. (9) Open wound of heel: Code(s): S91.309A - Unspecified open wound, unspecified foot, initial encounter Status: Acute Assessment and Plan: HANNA showing moderately decreased right HANNA consistent with arerial occlusive disease. Patient has a wound to his right heel and he has necrotic tissue on his toes. Wound care following. Continue ASA and statin. Smoking cessation is a must. Subjective Date/time seen: 12/21/21 13:45 Interval history: 71yo male with a history of tobacco abuse, lymphoma, renal cell and BPH her
--- NOTE | 2021-12-21 14:34 | PCRCNOTE ---
Window of time for administration has passed. See next scheduled administration.
[2021-12-21] MEDS: BISACODYL 10 MG SUPPOSITORY RECTAL (14:35)
[2021-12-21] MEDS: polyethylene glycoL 3350 17 GM POWD.PACK PO (14:35)
[2021-12-21] MEDS: QUEtiapine FUMARATE 12.5 MG TABLET PO (20:41)
--- NOTE | 2021-12-21 21:08 | PCRCNOTE ---
RT went to put UPD treatment on pt, pt yelled at RT get that out of my face, that is not the f treatment and continued to curse at RT. RT put treatment up and informed nurse.
[2021-12-22] VITALS (10 sets, daily range): BP systolic 126–128; BP diastolic 68–69; PULSE 84–95; RESP 16–18; TEMP 36.3; O2SAT 96–100
[2021-12-22] MEDS: IPRATROPIUM BR 0.02% INH SOLN 0.5 MG/2.5 ML VIAL INHALATION ×3 (04:34→13:07)
[2021-12-22 05:14] LABS: Hematocrit 38.1 % (42.0-52.0); Hemoglobin 12.2 g/dL (14.0-18.0); Immature Platelet Fraction Pct 9.4 % (0.9-11.2); Mean Corpuscular Hemoglobin 25.8 pg (26-34); Mean Corpuscular Volume 80.7 fl (80-100); Mean Platelet Volume 11.3 fl (7.4-10.4); Platelet Count Result 125 k/mm3 (150-375); Red Blood Count 4.72 M/mm3 (4.6-6.20); Red Cell Distribution Width 14.1 % (11.5-14.5); White Blood Count 9.5 K/mm3 (4.5-10.0)
[2021-12-22 05:29] LABS: Albumin Level 2.6 g/dL (3.5-5.1); Anion Gap 6 mmol/L (8-16); Blood Urea Nitrogen 26 mg/dL (9-20); Calcium 7.9 mg/dL (8.4-10.2); Carbon Dioxide 30 mmol/L (22-30); Chloride 98 mmol/L (98-107); Estimated CRCL calculation 60 ml/min; Estimated Glomerular Filt Rate > 60; Glucose 72 mg/dL (65-110); Magnesium 2.2 mg/dL (1.6-2.3); Phosphorus 2.9 mg/dL (2.5-4.5); Potassium 3.4 mmol/L (3.4-5.0); Sodium 134 mmol/L (137-145)
--- NOTE | 2021-12-22 08:02 | PCOTNOTE ---
Decreasing pt. frequency for therapy services to 2-3x/wk, as pt. unable to meaningfully participate at higher frequency of services and is frequently significantly agitated by participation.
[2021-12-22] MEDS: SPIRONOLACTONE 25 MG TABLET PO (09:02)
[2021-12-22] MEDS: LOSARTAN POTASSIUM 25 MG TABLET PO (09:03)
[2021-12-22] MEDS: METOPROLOL SUCCINATE EXT REL 50 MG TABCR PO (09:03)
[2021-12-22] MEDS: MAGNESIUM OXIDE 400 MG TABLET PO (09:03)
[2021-12-22] MEDS: ATORVASTATIN 40 MG TABLET PO (09:04)
[2021-12-22] MEDS: FAMOTIDINE 20 MG TABLET 40 MG PO ×2 (09:04→17:39)
[2021-12-22] MEDS: MORPHINE SULFATE (*CRX) 15 MG TABCR PO ×2 (09:05→17:39)
[2021-12-22] MEDS: ASPIRIN 81 MG ENTERIC TABLET PO (09:05)
[2021-12-22] MEDS: ENOXAPARIN 40 MG/0.4 ML SYRINGE SUB-Q (09:05)
[2021-12-22] MEDS: BISACODYL 10 MG SUPPOSITORY RECTAL (09:05)
[2021-12-22] MEDS: polyethylene glycoL 3350 17 GM POWD.PACK PO (09:05)
[2021-12-22 09:19] LABS: Cholesterol 70 mg/dL (0-200); HDL Direct 21 mg/dL; Triglycerides 101 mg/dL (<150)
[2021-12-22 09:30] LABS: LDL Cholesterol Direct 30 mg/dL
--- NOTE | 2021-12-22 12:03 | WPDNEUROPN ---
Progress Note: A&P Assessment and Plan (1) Cognitive deficit due to multiple acute subcortical strokes: Code(s): I63.9 - Cerebral infarction, unspecified; R41.89 - Other symptoms and signs involving cognitive functions and awareness Status: Acute Plan treatment continues as such Subjective Date/time seen: 12/22/21 12:03 Interval history: 89 years old with history of stroke in addition to the history of tobacco abuse, but no drinking alcohol admitted to the hospital through the emergency room with pre-existent left above the knee amputation and also history of transient visual difficulties initial CT scan of the brain documented by occipital infarct left worse than the right in addition to chronic left temporal and frontal lobe encephalomalacia, head and neck CTA documented no aneurysm or significant intracranial arterial stenosis, brain MRI confirm the right caudate nucleus acute infarct in addition to posterior frontal lobes parietal lobe occipital lobe posterior temporal lobes and bilateral cerebellum with chronic encephalomalacia of the left frontal and temporal lobes repeat CT scan on 12/18 documented no significant change, patient has also been found to have the acute embolism and thrombosis of unspecified deep vein lower extremity and right brachial vein, documented to have left ventricular systolic dysfunction with ejection fraction only 40% and medications are being continued including losartan his spironolactone metoprolol and jardiance Review of Systems Review of Systems: All systems reviewed & are unremarkable except as noted in HPI and below Exam Narrative: remains in no acute distress heart regular lungs clear abdomen is soft neurologically awake confused with by lateral decreased strength hyperreflexia and upgoing plantar responses Objective Data Vital Signs Vital Signs: Vital Signs - 24 hr 12/21/21 14:08 12/21/21 20:28 12/21/21 21:09 Temperature 36.8 C 36.4 C L Pulse Rate 91 96 Respiratory Rate 14 18 Blood Pressure 116/76 130/71 Pulse Oximetry 93 91 93 Oxygen Delivery Nasal Cannula Oxygen Flow Rate 3 12/21/21 20:00 12/22/21 03:51 12/22/21 04:34 Temperature 36.3 C L Pulse Rate 84 86 Respiratory Rate 18 16 Blood Pressure 128/69 Pulse Oximetry 96 97 Oxygen Delivery Nasal Cannula Oxygen Flow Rate 3 12/22/21 04:43 12/22/21 08:58 12/22/21 09:07 Temperature Pulse Rate 88 95 94 Respiratory Rate 16 16 16 Blood Pressure Pulse Oximetry Oxygen Delivery Oxygen Flow Rate 12/22/21 09:03 12/22/21 10:15 Temperature Pulse Rate 91 91 Respiratory Rate Blood Pressure Pulse Oximetry 96 Oxygen Delivery Nasal Cannula Oxygen Flow Rate 3 Intake/Output Intake/Output: Intake & Output 12/19/21 12/20/21 12/21/21 12/22/21 23:59 23:59 23:59 23:59 Intake Total 1250 460 495 50 Output Total 750 1000 450 150 Balance 500 -540 45 -100 Meds/Results Medications: Active Medications Generic Name Dose Route Start Last Admin Trade Name Brady PRN Reason Stop Dose Admin Aspirin 81 mg 12/17/21 09:00 12/22/21 09:05 Aspirin 81 Mg Enteric Tablet PO 81 mg QAM EUSEBIO Administration Atorvastatin Calcium 40 mg 12/18/21 09:00 12/22/21 09:04 Atorvastatin 40 Mg Tablet PO 40 mg DAILY EUSEBIO Administration Bisacodyl 10 mg 12/22/21 09:00 12/22/21 09:05 Bisacodyl 10 Mg Suppository RECTAL 12/23/21 09:01 10 mg QAM EUSEBIO Administration Enoxaparin Sodium 40 mg 12/18/21 09:00 12/22/21 09:05 Enoxaparin 40 Mg/0.4 Ml Syringe SUB-Q 40 mg DAILY EUSEBIO Administration Famotidine 40 mg 12/16/21 09:00 12/22/21 09:04 Famotidine 20 Mg Tablet PO 40 mg BID EUSEBIO Administration Piperacillin/Tazobactam/Dextrose 3.375 gm in 50 mls @ 100 mls/hr 12/17/21 15:00 12/22/21 09:05 Zosyn 3.375 Gm/D5w 50ml Pm IVPB 100 mls/hr Q6H EUSEBIO Administration Ipratropium Gardiner 0.5 mg 12/17/21 16:00 12/22/21 08:58 Ipratropium Br 0.02% Inh So
--- NOTE | 2021-12-22 12:33 | PM.IMPN ---
Progress Note: A&P Assessment and Plan (1) Stroke: Code(s): I63.9 - Cerebral infarction, unspecified Status: Acute Assessment and Plan: Patient presents with altered mental status. Brain CT showing acute infarcts. MRI brain showed acute infarct involving the R caudate, bilateral posterior frontal lobes, bilateral parietal lobes, bilateral occipital lobes, bilateral posterior temporal lobes, and bilateral cerebellum. CTA showed 24% stenosis of proximal R ICA and 0% stenosis of proximal L ICA. Given multiple infarcts, consider embolic etiology. Echo showing EF of 35% but no mention of LV thrombus. . Speech therapy evaluated the patient and felt he could have oral intake; possible discharge going on aspirin as neurology (2) DVT (deep venous thrombosis): Code(s): I82.409 - Acute embolism and thrombosis of unspecified deep veins of unspecified lower extremity Status: Acute Assessment and Plan: UE doppler showing left cephalic vein thrombosis (superficial) and right brachial vein thrombosis (deep). Pulmonary made aware. No plans for anticoagulation. Continue warm compresses. Plan to repeat US in 1 week to see if this propagates. (3) LV dysfunction: Code(s): I51.9 - Heart disease, unspecified Status: Acute Assessment and Plan: Echocardiogram shows LV systolic function reduced with EF of 35-40% (4) Hypoxia: Code(s): R09.02 - Hypoxemia Status: Acute Assessment and Plan: CTA is negative for pulmonary embolism but does show large hiatal hernia, emphysema and bilateral lower lobe infiltrates (5) Gastroesophageal reflux disease: Code(s): K21.9 - Gastro-esophageal reflux disease without esophagitis Status: Acute Assessment and Plan: continue PPI. Modified diet. Watch for aspiration. Seen physical therapy and speech therapy (6) BPH (benign prostatic hyperplasia): Code(s): N40.0 - Benign prostatic hyperplasia without lower urinary tract symptoms Status: Acute Assessment and Plan: As above. Patient not on medications for BPH. Flomax added for urine retention. no more hematuria noted Flush until clear. (7) Tobacco abuse: Code(s): Z72.0 - Tobacco use Status: Acute Assessment and Plan: advised patient to quit smoking (8) Chronic pain syndrome: Code(s): G89.4 - Chronic pain syndrome Status: Acute Assessment and Plan: Patient with chronic pain and takes MS Contin chronically. This has been continued. We did cut back on the dose of his MS Contin. (9) Open wound of heel: Code(s): S91.309A - Unspecified open wound, unspecified foot, initial encounter Status: Acute Assessment and Plan: HANNA showing moderately decreased right HANNA consistent with arerial occlusive disease. Patient has a wound to his right heel and he has necrotic tissue on his toes. Wound care following. Continue ASA and statin. Smoking cessation is a must. Plan DVT prophylaxis. GI prophylaxis. All records reviewed hemoglobin A1c is 5.0, LDL is 30 possible discharge to nursing Discussed plan of care with the nursing staff and with the patient in detail. Answered all questions and concerns from the patient. All labs have been reviewed. Code status updated dictation may have been done utilizing a voice recognition system. Attempts have been made to correct errors. However, there may be uncorrected grammatical, spelling, and recognition errors present. Subjective Date/time seen: 12/22/21 12:33 patient being treated for acute CVA family on bedside Review of Systems Review of Systems: All systems reviewed & are unremarkable except as noted in HPI and below Exam Narrative: i GENERAL: Well appearing, well-nourished, non-toxic, in no acute distress. HEAD: Normocephalic, atraumatic. NECK: Supple. No adenopathy, no masses. RESPIR
[2021-12-22] MEDS: SILVERGEL (ELTA) 45 ML 1 APPLIC TOPICAL (13:26)
--- NOTE | 2021-12-22 14:57 | PC.NURSE ---
On 12/22/21, the student, [Rolando Guillen], provided care and completed [facility] documentation on this patient. I have reviewed the student's documentation and agree with the findings.
--- NOTE | 2021-12-22 15:58 | PM.DS ---
DS: Admitting Diagnosis Discharge Date 12/22/2021 Admitting Diagnosis CVA DS: Discharge Diagnosis Discharge Diagnosis (1) Stroke: Code(s): I63.9 - Cerebral infarction, unspecified Status: Acute Assessment and Plan: Patient presents with altered mental status. Brain CT showing acute infarcts. MRI brain showed acute infarct involving the R caudate, bilateral posterior frontal lobes, bilateral parietal lobes, bilateral occipital lobes, bilateral posterior temporal lobes, and bilateral cerebellum. CTA showed 24% stenosis of proximal R ICA and 0% stenosis of proximal L ICA. Given multiple infarcts, consider embolic etiology. Echo showing EF of 35% but no mention of LV thrombus. . Speech therapy evaluated the patient and felt he could have oral intake; possible discharge going on aspirin as neurology (2) DVT (deep venous thrombosis): Code(s): I82.409 - Acute embolism and thrombosis of unspecified deep veins of unspecified lower extremity Status: Acute Assessment and Plan: UE doppler showing left cephalic vein thrombosis (superficial) and right brachial vein thrombosis (deep). Pulmonary made aware. No plans for anticoagulation. Continue warm compresses. Plan to repeat US in 1 week to see if this propagates. (3) LV dysfunction: Code(s): I51.9 - Heart disease, unspecified Status: Acute Assessment and Plan: Echocardiogram shows LV systolic function reduced with EF of 35-40% (4) Hypoxia: Code(s): R09.02 - Hypoxemia Status: Acute Assessment and Plan: CTA is negative for pulmonary embolism but does show large hiatal hernia, emphysema and bilateral lower lobe infiltrates (5) Gastroesophageal reflux disease: Code(s): K21.9 - Gastro-esophageal reflux disease without esophagitis Status: Acute Assessment and Plan: continue PPI. Modified diet. Watch for aspiration. Seen physical therapy and speech therapy (6) BPH (benign prostatic hyperplasia): Code(s): N40.0 - Benign prostatic hyperplasia without lower urinary tract symptoms Status: Acute Assessment and Plan: As above. Patient not on medications for BPH. Flomax added for urine retention. no more hematuria noted Flush until clear. (7) Tobacco abuse: Code(s): Z72.0 - Tobacco use Status: Acute Assessment and Plan: advised patient to quit smoking (8) Chronic pain syndrome: Code(s): G89.4 - Chronic pain syndrome Status: Acute Assessment and Plan: Patient with chronic pain and takes MS Contin chronically. This has been continued. We did cut back on the dose of his MS Contin. (9) Open wound of heel: Code(s): S91.309A - Unspecified open wound, unspecified foot, initial encounter Status: Acute Assessment and Plan: HANNA showing moderately decreased right HANNA consistent with arerial occlusive disease. Patient has a wound to his right heel and he has necrotic tissue on his toes. Wound care following. Continue ASA and statin. Smoking cessation is a must. Plan DVT prophylaxis. GI prophylaxis. All records reviewed hemoglobin A1c is 5.0, LDL is 30 possible discharge to nursing Discussed plan of care with the nursing staff and with the patient in detail. Answered all questions and concerns from the patient. All labs have been reviewed. Code status updated dictation may have been done utilizing a voice recognition system. Attempts have been made to correct errors. However, there may be uncorrected grammatical, spelling, and recognition errors present. DS: Summary Hospital Course Hospital Course: seen and admitted for CVA Status at Discharge Functional status at discharge: uses cane/walker Overall status at discharge: patient is back to baseline Time Spent with Patient Time attestation: Total time spent providing and/or coordinating discharge servi
[2021-12-22 16:26] LABS: EDCOVIDSCREEN Negative (Negative)
--- NOTE | 2021-12-22 17:48 | PC.NURSE ---
Home medication that was locked in the medication room was returned to the daughter.
== END 2021-12-22 17:53 | DRG 65 ==
LOC: ANHED 17:49 → ANH3MEDSUR 19:58 → ANH2MED 21:01
PROVIDERS: Emergency Medicine; Internal Medicine; Internal Medicine Pulmonary Disease; Nurse Practitioner; Student in an Organized Health Care Education/Training Program; Admitting Provider Student in an Organized Health Care Education/Training Program; Emergency Provider Emergency Medicine; Visit Provider Internal Medicine
DX: I63.9 Cerebral infarction, unspecified (principal); I82.612 Acute embolism and thrombosis of superficial veins of left upper extremity; I82.621 Acute embolism and thrombosis of deep veins of right upper extremity; J43.2 Centrilobular emphysema; I51.9 Heart disease, unspecified; R09.02 Hypoxemia; F19.10 Other psychoactive substance abuse, uncomplicated; F17.200 Nicotine dependence, unspecified, uncomplicated; N40.0 Benign prostatic hyperplasia without lower urinary tract symptoms; K21.9 Gastro-esophageal reflux disease without esophagitis; K44.9 Diaphragmatic hernia without obstruction or gangrene; G89.4 Chronic pain syndrome; I77.1 Stricture of artery; S91.301A Unspecified open wound, right foot, initial encounter; Z20.822 Contact with and (suspected) exposure to COVID-19; Z28.89 Immunization not carried out for other reason; Z85.528 Personal history of other malignant neoplasm of kidney; Z85.72 Personal history of non-Hodgkin lymphomas; Z89.612 Acquired absence of left leg above knee; Z90.5 Acquired absence of kidney; Z98.49 Cataract extraction status, unspecified eye
CPT/HCPCS: 36415; 36600; 70450; 70496; 70498; 70553; 71045; 71275; 80053; 80061; 80069; 81001; 82375; 82550; 82805; 83036; 83050; 83735; 83880; 84100; 84443; 85025; 85027; 85055; 85380; 85610; 85730; 87040; 87426; 87636; 92610; 93005; 93306; 93922; 93970; 94640; 96375; 97110; 97162; 97167; 97530; 97535; 99285; A9270; A9577; C9803; J1630; J1650; J2060; J2543; Q9967

== ENCOUNTER 2022-01-06 01:11 | Inpatient (IN) | payer MEDICARE, MEDICAID, SELFPAY ==
[2022-01-06] VITALS (75 sets, daily range): BP systolic 76–155; BP diastolic 52–81; PULSE 73–101; RESP 11–20; TEMP 36.7–37.3; O2SAT 91–100; BMI 20.9
--- NOTE | ~2022-01-06 | MR_ITS ---
EXAMINATION: MR brain/brain stem wo con DATE: 01/10/2022 15:20 INDICATION: Concern for stroke with decreased level of consciousness TECHNIQUE: Magnetic resonance imaging (MRI) of the brain and brainstem was performed without intraven ous contrast. Sequences included sagittal and axial T1-weighted SE, axial diffusion-weighted FS SE, a xial T2*-weighted GRE, axial 3D SWAN, axial T2-weighted FLAIR, and axial T2-weighted FSE. Apparent di ffusion coefficient (ADC) maps were created. COMPARISON: 02/15/2021 FINDINGS: The majority of the previously described small regions of restricted diffusion consistent which were consistent with acute infarcts are now indiscernible on the diffusion-weighted imaging consistent wit h typical interval evolution of now subacute infarcts. There are however a few residual foci of restr icted diffusion in the bilateral posterior frontal lobes, parietal lobes and occipital lobes which gi kurtis the elapsed time suggests either recurrent infarcts or more likely given the identical distributi on, ongoing ischemia with continued evolution of the infarcts. Chronic encephalomalacia in the latera l left frontal and temporal lobes consistent with likely chronic infarcts No intracranial hemorrhage or abnormal intracranial mass lesion. There are scattered areas of nonspecific increased T2-weighted signal intensity in the cerebral white matter, predominantly involving the deep and periventricular w ava matter. There are no intraparenchymal signal abnormalities seen on the other pulse sequences. Th e ventricles are symmetric and normal in size. There are no abnormal extra-axial fluid collections. F low voids are seen in the cerebral arteries on the T2-weighted sequences consistent with their expect ed patency. Mild mucosal thickening the bilateral ethmoid sinuses and small mucous retention cyst in the left maxillary sinus. Changes of bilateral intraocular lens replacement. Persistent bilateral mas toid effusions. IMPRESSION: 1. Persistent restricted diffusion at several of the numerous prior small bilateral now subacute infa rcts. The persistence of the restricted diffusion is atypical and suggests ongoing ischemia which lorrie ng with the distribution suggests possibility of ongoing hypotensive watershed infarcts. No geographi yessi new acute infarcts identified. 2. Unchanged chronic encephalomalacia in the lateral left frontal and temporal lobes along the ely n fissure consistent with likely chronic infarct. 3. Stable appearance of moderate nonspecific cerebral white matter hypoattenuation consistent with ch ronic small vessel ischemic disease. Reviewed, dictated and finalized at location A. REFINER IMPRESSION: 1. Persistent restricted diffusion at several of the numerous prior small bilat eral now subacute infarcts. The persistence of the restricted diffusion is atyp ical and suggests ongoing ischemia which along with the distribution suggests p ossibility of ongoing hypotensive watershed infarcts. No geographically new acu te infarcts identified. 2. Unchanged chronic encephalomalacia in the lateral left frontal and temporal lobes along the sylvian fissure consistent with likely chronic infarct. 3. Stable appearance of moderate nonspecific cerebral white matter hypoattenuat ion consistent with chronic small vessel ischemic disease.
--- NOTE | ~2022-01-06 | XR_ITS ---
EXAMINATION: XR chest 1V portable INDICATION: Altered mental status TECHNIQUE: Portable AP chest at 0208 hours COMPARISON: 12/17/2021 FINDINGS: There are minimal airspace opacities of the mid and lower lung zones. A small left pleural effusion is suggested. The heart size is normal. There is no pneumothorax. Surgical changes are noted in the left upper quadrant. IMPRESSION: 1. Airspace opacities of the mid and lower lung zones, likely atelectasis. 2. Small left pleural effusion. Reviewed, dictated and finalized at location A. PREPARATION SUPERVISOR
--- NOTE | ~2022-01-06 | CT_ITS ---
EXAMINATION: CT abdomen pelvis wo con DATE: 01/06/2022 04:08 INDICATION: Abdominal pain. TECHNIQUE: Computed tomography (CT) of the abdomen and pelvis was performed without intravenous contr ast. Automated exposure control and iterative reconstruction technique were employed. The dose-length product was 900.82 mGy-cm. COMPARISON: Chest CT 12/17/2021 FINDINGS: There is a large sliding hiatal hernia containing stomach, pancreas, and small bowel. There are small pleural effusions, left worse than right. There is dependent atelectasis bilaterally. The heart size is normal. There are coronary artery calcifications. No pericardial effusion. The liver is normal. The gallbladder is contracted. A small gallbladder wall calcification is noted. Calcificatio ns in the spleen are consistent with old granulomatous disease. The right adrenal gland is normal. Th ere is mild right hydronephrosis and hydroureter. The left adrenal gland and kidney are absent. There is diffuse bladder wall thickening. The bladder is decompressed by a Mcfarlane catheter. There is hyperd ense material in the dependent bladder measuring up to 12 mm, consistent with stones. Stool distends the rectum. There are scattered diverticula in the colon. There is extraluminal gas and trace fluid a djacent to the rectosigmoid. The appendix is normal. There are no pathologically enlarged lymph nodes . There is no free intraperitoneal fluid. There is moderate thoracolumbar spondylosis. There are brid ging endplate osteophytes at multiple levels in the thoracic spine, consistent with diffuse idiopathi c skeletal hyperostosis (DISH). IMPRESSION: 1. Extraluminal gas and trace fluid adjacent to the sigmoid colon and rectum, which may be secondary to diverticulitis or stercoral colitis. 2. Diffuse bladder wall thickening, which may be secondary to cystitis or chronic outlet obstruction. 3. Mild right hydronephrosis and hydroureter. 4. Bladder stones. 5. Small pleural effusions, left worse than right. 6. Large sliding hiatal hernia. Reviewed, dictated and finalized at location A. LY EDUCATOR IMPRESSION: 1. Extraluminal gas and trace fluid adjacent to the sigmoid colon and rectum, w hich may be secondary to diverticulitis or stercoral colitis. 2. Diffuse bladder wall thickening, which may be secondary to cystitis or chron ic outlet obstruction. 3. Mild right hydronephrosis and hydroureter. 4. Bladder stones. 5. Small pleural effusions, left worse than right. 6. Large sliding hiatal hernia.
--- NOTE | ~2022-01-06 | US_ITS ---
US renal BI 01/06/2022 13:25 Procedure: Realtime transabdominal ultrasound of the kidneys and bladder. Indication: Acute renal insufficiency Comparison: CT dated 01/06/2022 Findings: Right renal echotexture is normal. There is mild right hydronephrosis. No renal masses or s tones. The right kidney measures 12 cm and left kidney is absent. There is a Mcfarlane catheter in the bl adder. There is mild bladder wall thickening. Impression: 1: Mild right hydronephrosis. 2: Bladder wall thickening may be due to underdistention or cystitis. Mcfarlane catheter present. Reviewed, dictated and finalized at location A. ICAL STUDIES SPECIALIST Impression: 1: Mild right hydronephrosis. 2: Bladder wall thickening may be due to underdistention or cystitis. Mcfarlane cat heter present.
--- NOTE | ~2022-01-06 | CT_ITS ---
EXAMINATION: CTA BRAIN/CAROTID DATE: 01/10/2022 15:26 INDICATION: Stroke TECHNIQUE: Computed tomographic angiography (CTA) of the head and neck was performed with 100 mL Omni paque-350 intravenous contrast. Multiplanar reconstructions and maximum intensity projection 3D-recon structions of the carotid arteries and of the intracranial arteries were created by the technologist on a separate workstation. Automated exposure control and iterative reconstruction technique were emp loyed.The dose-length product was 1140.96 mGy-cm. COMPARISON: Head CT and brain MR dated 01/10/2022 and prior brain and carotid CT angiogram dated 12/16 FINDINGS: Carotid arteries: Small amount of nonhemodynamically significant atherosclerotic plaque along the visualized portion of the normal caliber aortic arch as well as at the origins of the great arteries arising from the arch . There is no significant change in a 25% stenosis of the right carotid bulb relative to normal dista l artery lumen diameter (NASCET criteria). There is small amount of atherosclerotic plaque with 0% st enosis of the left carotid bulb relative to normal distal artery lumen diameter. Cervical portion of the bilateral vertebral arteries are codominant and patent throughout with no evident atherosclerotic plaque. Moderate emphysema. Incompletely visualized bilateral posterior layering pleural effusions w ith associated dependent compressive atelectasis., left greater than right with associated dependent compressive atelectasis. Persistent mediastinal lymphadenopathy. Likely benign 1 cm right thyroid nod ule. Severe cervical spondylosis. Right subclavian central venous catheter with distal tip extending beyond the inferior margin of the [id number]. Intracranial arteries There is a small amount of atherosclerotic plaque at the bilateral carotid siphons without hemodynami yessi significant stenosis. There is no hemodynamically significant stenosis in the vertebral or basi lar arteries. The left intracranial vertebral artery is mildly dominant. There are no aneurysms ident ified. Both A1 and P1 segments as well as an anterior communicating artery are patent. Cerebral art erial arborization appears symmetric. Again seen is decreased density associated with previous noted small recent infarcts in the bilateral occipital lobes with small amount of associated rupture perfus ion on the left. Again seen are regions of encephalomalacia in the lateral left frontal and temporal lobes consistent with chronic infarcts. IMPRESSION: 1. Unchanged 25% stenosis of the right carotid bulb relative to normal distal artery lumen diameter ( NASCET criteria). 2. 0% stenosis of the left carotid bulb relative to normal distal artery lumen diameter. 3. No aneurysm or significant intracranial arterial stenosis. 4. Small relatively recent bilateral occipital lobe infarcts as described on MRI report from one day prior with small amount of likely perfusion associated with the left occipital infarct. 5. Small regions of encephalomalacia consistent with chronic infarcts in the left frontal and tempora l lobes. 6. Moderate emphysema. 6. Persistent mediastinal lymphadenopathy, likely reactive. Reviewed, dictated and finalized at location A. PICKER IMPRESSION: 1. Unchanged 25% stenosis of the right carotid bulb relative to normal distal a rtery lumen diameter (NASCET criteria). 2. 0% stenosis of the left carotid bulb relative to normal distal artery lumen diameter. 3. No aneurysm or significant intracranial arterial stenosis. 4. Small relatively recent bilateral occipital lobe infarcts as described on MR I report from one day prior with small amount of likely perfusion associated wi th the left occipital infarct. 5. Small regions of encephalomalaci
--- NOTE | ~2022-01-06 | US_ITS ---
EXAMINATION: US venous doppler UE DATE: 01/06/2022 13:28 INDICATION: Recent DVT in the upper extremities TECHNIQUE: Vick scale images with and without compression and Doppler images of the right and left up per extremity veins were obtained. COMPARISON: Ultrasound dated 12/18/2021. FINDINGS: There is a venous thrombosis in the right brachial and basilic veins. There is venous thrombosis of t he left brachial and cephalic veins. The remainder of the upper extremity veins are patent. IMPRESSION: 1. Progression of bilateral upper extremity venous thrombosis involving the right brachial and basili c veins in the left brachial and cephalic veins. Reviewed, dictated and finalized at location A. O HANDLER IMPRESSION: 1. Progression of bilateral upper extremity venous thrombosis involving the rig ht brachial and basilic veins in the left brachial and cephalic veins.
--- NOTE | ~2022-01-06 | CT_ITS ---
EXAMINATION: CT brain wo con DATE: 01/10/2022 13:26 INDICATION: Decreased level consciousness. TECHNIQUE: Computed tomography (CT) of the head was performed without intravenous contrast. The dose- length product was 681.00 mGy-cm. Automated exposure control and iterative reconstruction technique w ere employed. COMPARISON: CT dated 12/18/2021 and MRI dated 12/16/2021 FINDINGS: There are subacute infarcts of the occipital lobes. There is high density areas in the left occipital lobe with gyral pattern which may represent parenchymal hemorrhage or developing calcifica tion. No ventriculomegaly or midline shift. There is generalized atrophy. There are scattered mild pe riventricular and subcortical white matter changes, most likely related to small vessel ischemic dise ase (microangiopathy). There is chronic left temporal lobe infarction with encephalomalacia. There is mild mucosal thickening of the left maxillary sinus. Mastoids are pneumatized. No depressed skull fr actures. IMPRESSION: 1. Subacute infarctions of the occipital lobes with areas of increased gyral density on the left whic h may represent parenchymal hemorrhage or developing gyral calcifications. 2: Chronic left temporal lobe infarction. Dr. Randy Jones discussed with the charge nurse, Mami, on second medical floor at 01/10/2022 13:45 HOP FARMER . Reviewed, dictated and finalized at location A. FARMER IMPRESSION: 1. Subacute infarctions of the occipital lobes with areas of increased gyral de nsity on the left which may represent parenchymal hemorrhage or developing gyra l calcifications. 2: Chronic left temporal lobe infarction. Dr. Randy Jones discussed with the charge nurse, Mami, on second medical floor at 01/10/2022 13:45 HOP FARMER.
--- NOTE | ~2022-01-06 | XR_ITS ---
EXAMINATION: XR chest port-a-cath/central DATE: 01/06/2022 06:56 INDICATION: Central line placement. TECHNIQUE: A single frontal view of the chest was obtained. COMPARISON: Chest single view at 1:53 AM, CT abdomen and pelvis 01/06/2022 FINDINGS: There is a large hiatal hernia. There are airspace opacities in the mid and lower lung zone s. No pneumothorax. The heart size is normal. A right subclavian central venous catheter is seen wit h tip at the superior cavoatrial junction. IMPRESSION: 1. Central line tip at superior cavoatrial junction. 2. Airspace opacities in the mid and lower lung zones, likely atelectasis. 3. Large hiatal hernia. Reviewed, dictated and finalized at location A. AIGN CONSULTANT
--- NOTE | ~2022-01-06 | XR_ITS ---
XR chest 1V portable DATE: 01/10/2022 23:09 INDICATION: Increased oxygen demand TECHNIQUE: Portable upright AP chest on 01/10/2022 2304 hours COMPARISON: 01/06/2022 portable AP chest at 0650 hours FINDINGS: Right subareolar and central venous catheter tip is situated near the superior cavoatrial j unction. Heart size appears within normal range. There is left lower lobe atelectasis/consolidation and some d iscoid atelectasis in the left lower lung. There is pulmonary vascular congestion and redistribution. There are diffuse bilateral pulmonary inte rstitial infiltrates and there are Luis Alberto B-lines, suggesting pulmonary edema, increased since 022. Mild blunting of left costophrenic may be due to pleural effusion. Osteopenia. IMPRESSION: Increased pulmonary edema since 01/06/2022 Increased discoid atelectasis, left lower lung Persistent left lower lobe atelectasis and/or consolidation Reviewed, dictated and finalized at location B. E DOG INSTRUCTOR
--- NOTE | 2022-01-06 01:32 | ECG_ITS ---
Measurements Intervals Pierre Rate: 84 P: 87 NC: 135 QRS: 48 QRSD: 86 T: 1 QT: 352 QTc: 417 Interpretive Statements SINUS RHYTHM NONSPECIFIC ST & T-WAVE ABNORMALITY ARTIFACT LIMITS INTERPRETATION ABNORMAL ECG COMPARED TO ECG 12/17/2021 14:54:39 SINUS RHYTHM NOW PRESENT T-WAVE ABNORMALITY NOW PRESENT Electronically Signed On 01-06-2022 11:18:10 REMOTE ENCODING OPERATIONS SUPERVISOR by Albert Grewal M.D.
[2022-01-06 02:02] LABS: Basophils Absolute Auto 0.1 K/mm3 (0.0-0.1); Basophils Percent Auto 0.5 % (0.2-1.2); Eosinophils Percent Auto 0.2 % (0-4.4); Hematocrit 33.9 % (42.0-52.0); Hemoglobin 10.4 g/dL (14.0-18.0); Immature Granulocyte Absolute 0.11 K/mm3 (0.00-0.031); Immature Granulocyte Percent A 0.7 % (0-0.5); Lymphocytes Absolute Auto 1.21 K/mm3 (0.9-3.2); Lymphocytes Percent Auto 7.5 % (18.3-44.2); Mean Corpuscular HGB Conc 30.7 g/dl (32-36); Mean Corpuscular Hemoglobin 25.9 pg (26-34); Mean Corpuscular Volume 84.5 fl (80-100); Mean Platelet Volume 12.7 fl (7.4-10.4); Monocytes Absolute Auto 0.7 K/mm3 (0.1-0.6); Monocytes Percent Auto 4.2 % (2.6-8.5); Neutrophils Percent Auto 86.9 % (45.5-73.1); Platelet Count Result 169 k/mm3 (150-375); Red Blood Count 4.01 M/mm3 (4.6-6.20); Red Cell Distribution Width 14.4 % (11.5-14.5); White Blood Count 16.1 K/mm3 (4.5-10.0)
[2022-01-06 02:03] LABS: Add Urine Microscopic? YES; Appearance Urine Turbid (Clear); Bilirubin Urine 1+ (Negative); Blood Urine 2+ (Negative); Color Urine Red (Yellow); Glucose Urine UA Negative (Negative); Ketones Urine Negative (Negative); Leukocyte Esterase Ur 3+ LEU/UL (Negative); Nitrate Urine Positive (Negative); Protein Urine 3+ mg/dL (Negative); pH Urine >=9.0 (5.0-9.0)
[2022-01-06 02:09] LABS: Bacteria Urine 4+ /hpf; Mucus Urine Moderate /lpf; RBC Urine >75 /hpf (0-2); Uric Acid Crystals Urine Present /hpf; WBC Urine >75 /hpf
[2022-01-06 02:11] LABS: Alanine Aminotransferase 26 U/L (6-50); Albumin Level 2.5 g/dL (3.5-5.1); Alkaline Phosphatase 105 U/L (38-126); Anion Gap 4 mmol/L (8-16); Aspartate Amino Transferase 44 U/L (17-59); Bilirubin,Total 0.7 mg/dL (0.2-1.3); Blood Urea Nitrogen 80 mg/dL (9-20); Calcium 8.5 mg/dL (8.4-10.2); Carbon Dioxide 31 mmol/L (22-30); Chloride 115 mmol/L (98-107); Estimated Glomerular Filt Rate 26; Glucose 133 mg/dL (65-110); Potassium 4.3 mmol/L (3.4-5.0); Sodium 150 mmol/L (137-145)
[2022-01-06] MEDS: SODIUM CHLORIDE 0.9% IV 1,000 ML 999 ML IV CONT ×3 (02:11→06:58)
[2022-01-06 02:12] LABS: Lactic Acid Reflex 1.7 mmol/L (0.7-2.0)
[2022-01-06 02:34] LABS: INR 1.2; Prothrombin Time 15.1 Seconds (11.1-14.7)
[2022-01-06 02:41] LABS: Influenza A QL RT-PCR Negative (Negative); Influenza B QL RT-PCR Negative (Negative); SARS-CoV-2 RNA PCR Negative
--- NOTE | 2022-01-06 02:46 | ED.GENADULT ---
HPI - General Adult General Chief complaint: Altered Mental Status Stated complaint: AMS Time Seen by Provider: 01/06/22 01:20 History of Present Illness HPI narrative: This is a 71-year-old male who resides at a group home due to multiple CVAs and severe debility presenting ED with altered mental status. [facility] noted that he was having nonsensical speech. Usually is AO x1. The patient arrived to the emergency department he was nonverbal. Chronic indwelling Mcfarlane was in place. Patient is on his baseline 4lpm 02 via [facility] Data Home Medications Medication Instructions Recorded Confirmed famotidine 40 mg tablet 40 mg PO BID 12/15/21 12/16/21 Allergies Allergy/AdvReac Type Severity Reaction Status Date / Time No Known Allergies Allergy Unverified 05/27/15 06:58 Review of Systems Review of Systems: unable to obtain due to patient condition PMFSH Past Medical History Medical History Above knee amputation of left lower extremity BPH (benign prostatic hyperplasia) Gastroesophageal reflux disease History of kidney cancer History of lymphoma Substance abuse Tobacco abuse Surgical History Surgical History H/O cataract extraction H/O umbilical hernia repair History of nephrectomy History of total knee arthroplasty Family History Family History Other Hypertension Social History Social History Social History: The patient lives with his daughter and tells me that he has had 5 children. The patient could not tell me when he retired from. The patient continues to smoke every day. The patient is listed as single. His daughter Jenae is listed as the next of kin. Code status full code Smoking status: Current every day smoker Alcohol intake: never Substance use: never Lack of Transportation: No Lack of Food: Never True Current Housing: I Have Housing Concerned About Future Housing: No Difficulty Paying Gas/Electric Bills: No Difficulty Paying for Meds: No Currently Unemployed: No Education: High School Diploma/GED Difficulty w/ Childcare or Family Care: No Spiritual care concerns: No Exam Narrative: APPEARANCE: Patient is lying supine. . He appears chronically unwell Head: atraumatic. EYES: EOMI, NOSE: Atraumatic NECK: Trachea midline RESPIRATORY: No increased work of breathing, scattered rhonchi CARDIOVASCULAR: RRR, ABDOMINAL: Patient moans on palpation of his abdomen. nondistended, no guarding or rebound MUSCULOSKELETAl: No obvious deformities, Left AKA GENITAL: patient has ulceration over the urethral meatus, no crepitus, no color change or swelling over the testicles NEURO: Alert. Moving 4/4 extremities SKIN:: multiple stage 2-3 pressure ulcers in the sacral and gluteal region no foul smell or purulent discharge. Covered with clean dressing. skin breakdown on the foot, also dressed with clean bandages PSYCHIATRIC: Normal affect Course Vital Signs Vital signs: Vital Signs Pulse Rate 89 01/06/22 01:24 Respiratory Rate 20 01/06/22 01:24 Pulse Oximetry 98 01/06/22 01:24 Temperature 98.0 F 01/06/22 01:30 Pulse Rate 97 01/06/22 05:46 Respiratory Rate 12 01/06/22 05:46 Blood Pressure 106/65 01/06/22 05:45 Pulse Oximetry 99 01/06/22 05:46 Oxygen Delivery Nasal Cannula 01/06/22 01:30 Oxygen Flow Rate 4.5 01/06/22 01:30 Procedures Central Line Placement Right SC: Discussed w/ the patient/family/POA,the placement of a central venous catheter, including its clinical necessity/indication & associated potential risks, benifits and alternatives.: Yes The patient/family/POA understand(s) and acknowledge(s) the need to proceed with central venous catheter insertion as an importan
[2022-01-06] MEDS: LACTATED RINGERS 1,000 ML 150 ML IV CONT ×2 (03:20→09:43)
[2022-01-06] MEDS: metroNIDAZOLE 500 MG/ISO 100ML 500 MG/100 ML BAG 100 MG IVPB ×3 (06:56→20:46)
[2022-01-06] MEDS: NOREPINEPHRINE 8 MG/D5W 250 ML 8 MG/250 ML BAG 9.38 MG IV CONT (07:00)
--- NOTE | 2022-01-06 11:37 | WPDCNINT ---
Assessment and Plan Assessment and plan (1) Septic shock: Code(s): A41.9 - Sepsis, unspecified organism; R65.21 - Severe sepsis with septic shock Status: Acute Assessment and Plan: Patient presented to the ED from the assisted with altered mental status, hypotension, refractory to IV fluid boluses. Right subclavian central line was inserted in the ER and patient was started on Levophed -continue Levophed, maintain MAP > 65 mmHg for adequate end organ perfusion -patient with acute kidney injury, with elevated creatinine -UA reflective of UTI -01/06 CT abdomen and pelvis showed extra luminal gas and trace fluid adjacent to the sigmoid colon and rectum which may be secondary to diverticulitis or stercoral colitis, diffuse bladder wall thickening which may be secondary to cystitis or chronic outlet obstruction, mild right hydronephrosis and hydroureter, bladder stones, small pleural effusion left was than right, large sliding hiatal hernia. -01/06: Chest x-ray Airspace opacities in mid and lower lung zones likely atelectasis, small left pleural effusion. -patient was given cefepime, ceftriaxone, vancomycin in the ER -will continue cefepime and vancomycin, will add Flagyl for anaerobic coverage given patient may have diverticulitis or stercoral colitis. -continue maintenance IV fluids -monitor urine output -urine and blood cultures have been obtained and pending (2) Acute UTI: Code(s): N39.0 - Urinary tract infection, site not specified Status: Acute Assessment and Plan: UA reflective of UTI, urine obtained and pending -Mcfarlane catheter was switched/change in the ER (3) Acute kidney injury: Code(s): N17.9 - Acute kidney failure, unspecified Status: Acute Assessment and Plan: Patient presented with acute kidney injury with elevation in creatinine to 2.5 on admission. (baseline creatinine 1.0 to 1.20) -patient received adequate amount of IV fluids -continue maintenance IV fluids -check urine lytes, CK level and urine eosinophils -Check renal ultrasound -monitor renal function, electrolytes and urine output (4) Multiple wounds: Code(s): T07.XXXA - Unspecified multiple injuries, initial encounter Status: Acute Assessment and Plan: Wound Care has been consulted (5) CVA (cerebral vascular accident): Code(s): I63.9 - Cerebral infarction, unspecified Status: Acute Assessment and Plan: Patient was recently admitted to [facility] with altered mental status on 12/15/2021 and discharged to the assisted on 12/22/2021. -Brain CT showed acute infarcts. -MRI brain showed acute infarct involving the R caudate, bilateral posterior frontal lobes, bilateral parietal lobes, bilateral occipital lobes, bilateral posterior temporal lobes, and bilateral cerebellum. -CTA showed 24% stenosis of proximal R ICA and 0% stenosis of proximal L ICA. -patient was discharged on aspirin per Neurology (6) DVT (deep venous thrombosis): Code(s): I82.409 - Acute embolism and thrombosis of unspecified deep veins of unspecified lower extremity Status: Acute Assessment and Plan: 12/18/2021 Patient on recent admission had left upper extremity DVT in the left cephalic weaned and right brachial vein. Patient was not started on any anticoagulation, will repeat venous Dopplers (7) LV dysfunction: Code(s): I51.9 - Heart disease, unspecified Status: Acute Assessment and Plan: 12/17/2021: Echocardiogram showed mild LV enlargement with moderate systolic dysfunction, EF 35-40%, grade 1 diastolic dysfunction, aortic valve sclerosis without stenosis. Dilated left atrium. Normal valvular disease (8) Chronic respiratory failure: Code(s): J96.10 - Chronic respiratory failure, unspecified whether with hypoxia or hypercapnia Status: Acute Assessment and Plan: Patient is post CVA has been requiring oxygen for hypoxia, was transferred to [facility]
--- NOTE | 2022-01-06 11:52 | PC.NURSE ---
This patient, Danish Adamson, was admitted to Intensive Care Unit-5. Patient/family oriented to hospital policies and general routines including ID bracelet, bed and alarms, visiting hours, pain management, procedures, bathroom and other care routines, personal items, smoking policy, room service/diet, and visiting hours. Information on how to activate the Rapid Response Team has been discussed. Patient/Family are encouraged to report perceived risks to care and to ask questions if they do not understand what they are told or what they should do.
[2022-01-06 12:15] LABS: Creatine Kinase 38 U/L (55-170)
[2022-01-06 14:37] LABS: Creatinine Urine 49.4 mg/dL
[2022-01-06 14:38] LABS: Potassium Urine Random 38.2 meq/L; Sodium Urine Random 102 meq/L
--- NOTE | 2022-01-06 14:38 | PM.IMHP ---
H&P: HPI History of Present Illness Date/Time: 01/06/22 14:38 Chief Complaint: altered mental status Narrative: Danish Adamson is a 71 year old male with past medical history of left AKA, BPH, GERD, substance abuse, tobacco abuse, history of kidney cancer, history of lymphoma, cardiomyopathy with EF of 35-40% on echocardiogram done on 12/17/2021 with grade 1 diastolic dysfunction, left upper extremity DVT 12/2021, recent CVA during his admission in December 2021, MRI brain showed acute infarct involving the R caudate, bilateral posterior frontal lobes, bilateral parietal lobes, bilateral occipital lobes, bilateral posterior temporal lobes, and bilateral cerebellum.CTA showed 24% stenosis of proximal R ICA and 0% stenosis of proximal L ICA. Patient presented the ED on 01/06/2022 from intermediate with complaints of altered mental status, according the intermediate staff patient was making nonsensical speech.? Usually AO x1.? Patient is on normally on 4 L oxygen via nasal cannula at the intermediate.? In the ER patient was found to be hypotensive despite IV fluid boluses. central line was inserted and patient was started on Levophed.? WBC count was elevated to 16.1, hemoglobin 10.4, platelets 169, INR 1.2, sodium 150, chloride 115, CO2 31, BUN 80, creatinine 2.50, lactic acid 1.7, LFTs were within normal limits, albumin 2.5.? UA reflective of severe UTI with positive nitrates, leukocyte esterase and 4+ bacteria.? Influenza A and B negative, SARS-CoV-[address] PCR was [address] CT abdomen and pelvis showed extra luminal gas and trace fluid adjacent to the sigmoid colon and rectum which may be secondary to diverticulitis a stercoral colitis, diffuse bladder wall thickening which may be secondary to cystitis or chronic outlet obstruction, mild right hydronephrosis and hydroureter, bladder stones, small pleural effusion left was than right, large sliding hiatal hernia.? Chest x-ray Airspace opacities in mid and lower lung zones likely atelectasis, small left pleural effusion. Patient was transfer the ICU for further management Review of Systems Review of Systems: ROS unobtainable: Yes unobtainable due to medical condition and unobtainable due to mental status PMFSH Past Medical History Medical History Above knee amputation of left lower extremity BPH (benign prostatic hyperplasia) Gastroesophageal reflux disease History of kidney cancer History of lymphoma Substance abuse Tobacco abuse Surgical History Surgical History H/O cataract extraction H/O umbilical hernia repair History of nephrectomy History of total knee arthroplasty Family History Family History Other Hypertension Social History Social History Social History: The patient lives with his daughter and tells me that he has had 5 children. The patient could not tell me when he retired from. The patient continues to smoke every day. The patient is listed as single. His daughter Jenae is listed as the next of kin. Code status full code Smoking status: Current every day smoker Alcohol intake: never Substance use: never Lack of Transportation: No Lack of Food: Never True Current Housing: I Have Housing Concerned About Future Housing: No Difficulty Paying Gas/Electric Bills: No Difficulty Paying for Meds: No Currently Unemployed: No Education: High School Diploma/GED Difficulty w/ Childcare or Family Care: No Spiritual care concerns: No Meds Home Medications and Allergies Home Medications Medication Instructions Recorded Confirmed Type famotidine 40 mg tablet 40 mg PO BID 12/15/21 01/06/22 History aspirin 325 mg tablet 325 mg PO DAILY #14 tabs 12/22/21 01/06/22 Rx atorvastatin 40 mg tablet (Lipitor) 40 mg PO DAILY #30 tabs
[2022-01-06 15:23] LABS: Eosinophil Urine None Seen % (None Seen)
[2022-01-06] MEDS: CENTRAL LINE FLUSH 10 ML IV PUSH ×2 (16:59→20:46)
[2022-01-06] MEDS: LACTATED RINGERS 1,000 ML 100 ML IV CONT (17:03)
[2022-01-06] MEDS: DEXTROSE 50% 25 GM/50 ML SYRINGE IV PUSH (17:47)
[2022-01-06 17:59] LABS: Glucose Point of Care 60 mg/dl (65-105)
[2022-01-06 18:05] LABS: Glucose Point of Care 92 mg/dl (65-105)
[2022-01-06 19:28] LABS: Glucose Point of Care 95 mg/dl (65-105)
[2022-01-07] VITALS (10 sets, daily range): BP systolic 124–139; BP diastolic 60–84; PULSE 97–115; RESP 13–19; TEMP 36.4–37.2; O2SAT 92–99; BMI 20.9
[2022-01-07] MEDS: LACTATED RINGERS 1,000 ML 100 ML IV CONT (03:10)
[2022-01-07 05:15] LABS: Lactic Acid Reflex 0.7 mmol/L (0.7-2.0)
[2022-01-07 05:19] LABS: Alanine Aminotransferase 27 U/L (6-50); Albumin Level 2.1 g/dL (3.5-5.1); Alkaline Phosphatase 90 U/L (38-126); Anion Gap 3 mmol/L (8-16); Aspartate Amino Transferase 57 U/L (17-59); Bilirubin,Total 0.5 mg/dL (0.2-1.3); Blood Urea Nitrogen 57 mg/dL (9-20); Calcium 7.9 mg/dL (8.4-10.2); Carbon Dioxide 27 mmol/L (22-30); Chloride 114 mmol/L (98-107); Estimated CRCL calculation 41 ml/min; Estimated Glomerular Filt Rate 50; Glucose 78 mg/dL (65-110); Magnesium 2.1 mg/dL (1.6-2.3); Phosphorus 3.7 mg/dL (2.5-4.5); Potassium 3.6 mmol/L (3.4-5.0); Sodium 144 mmol/L (137-145)
[2022-01-07 05:38] LABS: Basophils Absolute Auto 0.1 K/mm3 (0.0-0.1); Basophils Percent Auto 0.5 % (0.2-1.2); Eosinophils Absolute Auto 0.4 K/mm3 (0-0.3); Eosinophils Percent Auto 3.4 % (0-4.4); Hematocrit 30.7 % (42.0-52.0); Hemoglobin 9.2 g/dL (14.0-18.0); Immature Granulocyte Absolute 0.07 K/mm3 (0.00-0.031); Immature Granulocyte Percent A 0.5 % (0-0.5); Lymphocytes Absolute Auto 1.14 K/mm3 (0.9-3.2); Lymphocytes Percent Auto 8.8 % (18.3-44.2); Mean Corpuscular Hemoglobin 25.3 pg (26-34); Mean Corpuscular Volume 84.6 fl (80-100); Mean Platelet Volume 12.6 fl (7.4-10.4); Monocytes Absolute Auto 0.5 K/mm3 (0.1-0.6); Monocytes Percent Auto 4.2 % (2.6-8.5); Neutrophils Absolute Auto 10.7 K/mm3 (1.3-6.7); Neutrophils Percent Auto 82.6 % (45.5-73.1); Platelet Count Result 133 k/mm3 (150-375); Red Blood Count 3.63 M/mm3 (4.6-6.20); Red Cell Distribution Width 14.2 % (11.5-14.5); White Blood Count 12.9 K/mm3 (4.5-10.0)
[2022-01-07] MEDS: metroNIDAZOLE 500 MG/ISO 100ML 500 MG/100 ML BAG 100 MG IVPB ×3 (06:00→21:57)
[2022-01-07] MEDS: CENTRAL LINE FLUSH 10 ML IV PUSH ×3 (06:45→21:49)
[2022-01-07] MEDS: PANTOPRAZOLE SODIUM IV 40 MG VIAL IV PUSH (07:53)
[2022-01-07 08:03] LABS: Ammonia < 9 umol/L (9-30)
[2022-01-07] MEDS: ENOXAPARIN 80 MG/0.8 ML SYRINGE 65 MG SUB-Q ×2 (08:16→21:45)
--- NOTE | 2022-01-07 09:53 | PM.IMPN ---
Progress Note: A&P Assessment and Plan (1) Septic shock: Code(s): A41.9 - Sepsis, unspecified organism; R65.21 - Severe sepsis with septic shock Status: Acute Assessment and Plan: -Management per mechanical service specialist -Levophed discontinued. Blood pressure stable -UA reflective of UTI -01/06 CT abdomen and pelvis showed extra luminal gas and trace fluid adjacent to the sigmoid colon and rectum which may be secondary to diverticulitis or stercoral colitis, diffuse bladder wall thickening which may be secondary to cystitis or chronic outlet obstruction, mild right hydronephrosis and hydroureter, bladder stones, small pleural effusion left was than right, large sliding hiatal hernia. -01/06: Chest x-ray Airspace opacities in mid and lower lung zones likely atelectasis, small left pleural effusion. -continue cefepime, vancomycin, Flagyl for anaerobic coverage given patient may have diverticulitis or stercoral colitis. (2) Acute UTI: Code(s): N39.0 - Urinary tract infection, site not specified Status: Acute Assessment and Plan: UA reflective of UTI - continue cefepime (3) Acute kidney injury: Code(s): N17.9 - Acute kidney failure, unspecified Status: Acute Assessment and Plan: -continue maintenance IV fluids -monitor renal function, electrolytes and urine output (4) CVA (cerebral vascular accident): Code(s): I63.9 - Cerebral infarction, unspecified Status: Acute Assessment and Plan: - history of recent CVA (5) LV dysfunction: Code(s): I51.9 - Heart disease, unspecified Status: Acute Assessment and Plan: 12/17/2021: Echocardiogram showed mild LV enlargement with moderate systolic dysfunction, EF 35-40%, grade 1 diastolic dysfunction, aortic valve sclerosis without stenosis. Dilated left atrium. Normal valvular disease (6) Chronic respiratory failure: Code(s): J96.10 - Chronic respiratory failure, unspecified whether with hypoxia or hypercapnia Status: Acute Assessment and Plan: Patient is post CVA, was transferred to custodial on 4 L nasal cannula. CTA chest on the last admission was negative for pulmonary embolism but did show large sliding hiatal hernia, emphysema and bilateral lower lobe infiltrates. Subjective Date/time seen: 01/07/22 09:53 No change from yesterday Review of Systems Review of Systems: ROS unobtainable: Yes unobtainable due to medical condition and unobtainable due to mental status Exam Narrative: General: Ill-looking gentleman HEENT:? Dry oral mucosa, pupils equal and reactive, sclera is clear Neck:? Supple Respiratory:? Clear to auscultation bilaterally, decreased breath sounds at bases, no wheezing Cardiac:? S1-S2 is normal, regular rate and rhythm Abdomen:? Soft, tender to palpation in the left lower quadrant and periumbilical area, nondistended, hypoactive bowel sounds Extremities:? Multiple wounds on the right lower extremity in different stages of healing with scabs, left AKA, stump is clean and dry warm Neuro:? Patient open his eyes to name, nods to questions, follows simple commands in all extremities, does not answer any questions Skin:? Multiple wounds noted in different stages of healing Psych:? Unable to assess at this time Objective Data Vital Signs Vital Signs: Vital Signs - 24 hr 01/06/22 10:43 01/06/22 10:42 01/06/22 10:45 Temperature 98.4 F Pulse Rate 74 75 74 Respiratory Rate 16 13 13 Blood Pressure 144/69 H 138/67 Pulse Oximetry 100 100 100 Oxygen Delivery Oxygen Flow Rate 01/06/22 10:46 01/06/22 11:53 01/06/22 12:30 Temperature Pulse Rate 74 Respiratory Rate 13 Blood Pressure 155/77 H 152/70 H Pulse Oximetry 100 Oxygen Delivery Oxygen Flow Rate 01/06/22 12:00 01/06/22 12:00 01/06/22 14:03 Temperature 98.6 F Pulse Rate 83 90 Respiratory Rate 15 Blood Pressure 152/70 H 131/64 Pulse Oximetry 100 Oxygen Delivery Oxy
--- NOTE | 2022-01-07 12:59 | WPDINTPN ---
Progress Note: A&P Assessment and Plan (1) Septic shock: Code(s): A41.9 - Sepsis, unspecified organism; R65.21 - Severe sepsis with septic shock Status: Acute Assessment and Plan: Patient presented to the ED from the intermediate with altered mental status, hypotension, refractory to IV fluid boluses. Right subclavian central line was inserted in the ER and patient was started on Levophed -continue Levophed, maintain MAP > 65 mmHg for adequate end organ perfusion -patient with acute kidney injury, with elevated creatinine -UA reflective of UTI -01/06 CT abdomen and pelvis showed extra luminal gas and trace fluid adjacent to the sigmoid colon and rectum which may be secondary to diverticulitis or stercoral colitis, diffuse bladder wall thickening which may be secondary to cystitis or chronic outlet obstruction, mild right hydronephrosis and hydroureter, bladder stones, small pleural effusion left was than right, large sliding hiatal hernia. -01/06: Chest x-ray Airspace opacities in mid and lower lung zones likely atelectasis, small left pleural effusion. -patient was given cefepime, ceftriaxone, vancomycin in the ER -will continue cefepime and vancomycin, will add Flagyl for anaerobic coverage given patient may have diverticulitis or stercoral colitis. -continue maintenance IV fluids -monitor urine output -01/06: urine cultures have been obtained and pending 01/06: blood cx preliminary report is negative (2) Acute UTI: Code(s): N39.0 - Urinary tract infection, site not specified Status: Acute Assessment and Plan: UA reflective of UTI, urine obtained and pending -Mcfarlane catheter was switched/change in the ER (3) Acute kidney injury: Code(s): N17.9 - Acute kidney failure, unspecified Status: Acute Assessment and Plan: Patient presented with acute kidney injury with elevation in creatinine to 2.5 on admission. (baseline creatinine 1.0 to 1.20) -patient received adequate amount of IV fluids -continue maintenance IV fluids -creatinine improving -01/06/2022 renal ultrasound Mild right hydronephrosis.: Bladder wall thickening may be due to underdistention or cystitis. Mcfarlane catheter present. -monitor renal function, electrolytes and urine output (4) Multiple wounds: Code(s): T07.XXXA - Unspecified multiple injuries, initial encounter Status: Acute Assessment and Plan: Wound Care has been consulted (5) CVA (cerebral vascular accident): Code(s): I63.9 - Cerebral infarction, unspecified Status: Acute Assessment and Plan: Patient was recently admitted to [facility] with altered mental status on 12/15/2021 and discharged to the intermediate on 12/22/2021. -Brain CT showed acute infarcts. -MRI brain showed acute infarct involving the R caudate, bilateral posterior frontal lobes, bilateral parietal lobes, bilateral occipital lobes, bilateral posterior temporal lobes, and bilateral cerebellum. -CTA showed 24% stenosis of proximal R ICA and 0% stenosis of proximal L ICA. -patient was discharged on aspirin per Neurology (6) DVT (deep venous thrombosis): Code(s): I82.409 - Acute embolism and thrombosis of unspecified deep veins of unspecified lower extremity Status: Acute Assessment and Plan: 12/18/2021 Patient on recent admission had left upper extremity DVT in the left cephalic weaned and right brachial vein. Patient was not started on any anticoagulation, -01/06: Venous Dopplers bilateral upper extremity: Progression of bilateral upper extremity venous thrombosis involving the right brachial and basilic veins in the left brachial and cephalic veins. Patient was started on full-dose Lovenox (7) LV dysfunction: Code(s): I51.9 - Heart disease, unspecified Status: Acute Assessment and Plan: 12/17/2021: Echocardiogram showed mild LV enlargement with moderate systolic dysfunction, EF 35-40%, grade 1 diastolic dysfunction, aort
--- NOTE | 2022-01-07 16:20 | PC.NURSE ---
This patient, Danish Adamson, was transferred to [facility] on 01/07/22 at 1620. Personal belongings sent with patient. Report given to accepting RN. Appropriate documentation sent with patient.
--- NOTE | 2022-01-07 16:37 | PC.NURSE ---
This patient, Danish Adamson, was received from ICU on 01/07/22 at 1630. Patient/family oriented to unit policies and routines
[2022-01-07] MEDS: LACTATED RINGERS 1,000 ML 50 ML IV CONT (17:13)
[2022-01-08] MEDS: LACTATED RINGERS 1,000 ML 50 ML IV CONT (05:09)
[2022-01-08] MEDS: metroNIDAZOLE 500 MG/ISO 100ML 500 MG/100 ML BAG 100 MG IVPB ×3 (05:11→21:32)
[2022-01-08] MEDS: CENTRAL LINE FLUSH 10 ML IV PUSH ×4 (05:17→21:35)
[2022-01-08 06:00] VITALS: BP 176/80; PULSE 114; RESP 16; TEMP 36.8; O2SAT 94
[2022-01-08 06:25] LABS: Estimated CRCL calculation 56 ml/min; Estimated Glomerular Filt Rate > 60
[2022-01-08 09:41] VITALS: PULSE 108
[2022-01-08] MEDS: ATORVASTATIN 40 MG TABLET PO (09:41)
[2022-01-08] MEDS: LOSARTAN POTASSIUM 50 MG TABLET PO (09:41)
[2022-01-08] MEDS: ENOXAPARIN 80 MG/0.8 ML SYRINGE 65 MG SUB-Q ×2 (09:41→21:33)
[2022-01-08] MEDS: METOPROLOL TARTRATE 50 MG TAB PO ×2 (09:41→21:32)
[2022-01-08] MEDS: FAMOTIDINE 20 MG TABLET 40 MG PO ×2 (09:41→18:13)
[2022-01-08] MEDS: ASPIRIN 325 MG TABLET PO (09:41)
[2022-01-08] MEDS: MORPHINE SULFATE (*CRX) 15 MG TABCR PO ×2 (09:41→21:32)
[2022-01-08] MEDS: PANTOPRAZOLE SODIUM IV 40 MG VIAL IV PUSH (09:42)
--- NOTE | 2022-01-08 13:52 | PM.IMPN ---
Progress Note: A&P Assessment and Plan (1) Septic shock: Code(s): A41.9 - Sepsis, unspecified organism; R65.21 - Severe sepsis with septic shock Status: Acute Assessment and Plan: -Management per mechanic insulator -Levophed discontinued. Blood pressure stable -UA reflective of UTI -01/06 CT abdomen and pelvis showed extra luminal gas and trace fluid adjacent to the sigmoid colon and rectum which may be secondary to diverticulitis or stercoral colitis, diffuse bladder wall thickening which may be secondary to cystitis or chronic outlet obstruction, mild right hydronephrosis and hydroureter, bladder stones, small pleural effusion left was than right, large sliding hiatal hernia. -01/06: Chest x-ray Airspace opacities in mid and lower lung zones likely atelectasis, small left pleural effusion. -continue cefepime, vancomycin, Flagyl for anaerobic coverage given patient may have diverticulitis or stercoral colitis. 01/08/2022 interval history: 71 y/o with CVA now prasents with septic shock most likel 2/2 to UTI and urine culture is growing gram-negative bacilli being treated Cefepime and and vancomycin also there is a concern for diverticulitis and Flagyl was added patient blood pressure is now normalized and patient been afebrile, will follow-up on added fixation of urine culture and sensitivity as well as blood culture, patient also found to have bilateral upper extremity DVT currently treated with Lovenox will switch over to oral anticoagulation upon discharge, patient has lower extremity wound will be seen by wound nurse, patient with upper or lower extremity weakness will continue PT OT patient will benefit going to rehab. (2) Acute UTI: Code(s): N39.0 - Urinary tract infection, site not specified Status: Acute Assessment and Plan: UA reflective of UTI - continue cefepime (3) Acute kidney injury: Code(s): N17.9 - Acute kidney failure, unspecified Status: Acute Assessment and Plan: -continue maintenance IV fluids -monitor renal function, electrolytes and urine output (4) CVA (cerebral vascular accident): Code(s): I63.9 - Cerebral infarction, unspecified Status: Acute Assessment and Plan: - history of recent CVA (5) LV dysfunction: Code(s): I51.9 - Heart disease, unspecified Status: Acute Assessment and Plan: 12/17/2021: Echocardiogram showed mild LV enlargement with moderate systolic dysfunction, EF 35-40%, grade 1 diastolic dysfunction, aortic valve sclerosis without stenosis. Dilated left atrium. Normal valvular disease (6) Chronic respiratory failure: Code(s): J96.10 - Chronic respiratory failure, unspecified whether with hypoxia or hypercapnia Status: Acute Assessment and Plan: Patient is post CVA, was transferred to alf on 4 L nasal cannula. CTA chest on the last admission was negative for pulmonary embolism but did show large sliding hiatal hernia, emphysema and bilateral lower lobe infiltrates. Subjective Date/time seen: 01/08/22 13:52 HPI-Narrative: Danish Adamson is a 71 year old male with past medical history of left AKA, BPH, GERD, substance abuse, tobacco abuse, history of kidney cancer, history of lymphoma, cardiomyopathy with EF of 35-40% on echocardiogram done on 12/17/2021 with grade 1 diastolic dysfunction, left upper extremity DVT 12/2021, recent CVA during his admission in December 2021, MRI brain showed acute infarct involving the R caudate, bilateral posterior frontal lobes, bilateral parietal lobes, bilateral occipital lobes, bilateral posterior temporal lobes, and bilateral cerebellum.CTA showed 24% stenosis of proximal R ICA and 0% stenosis of proximal L ICA. Patient presented the ED on 01/06/2022? from alf with complaints of altered mental status, according the alf staff patient was making nonsensical speech.? Usually AO x1.? Patient is on normally on 4 L oxygen via nasal cannula
[2022-01-08 13:57] VITALS: BP 132/74; PULSE 80; RESP 18; TEMP 36.6; O2SAT 90
[2022-01-08 21:32] VITALS: PULSE 99
[2022-01-08] MEDS: TAMSULOSIN HCL 0.4 MG CAPSULE PO (21:32)
[2022-01-08] MEDS: QUEtiapine FUMARATE 25 MG TABLET 12.5 MG PO (21:35)
[2022-01-08 21:57] VITALS: BP 142/56; PULSE 99; RESP 20; TEMP 36.8; O2SAT 99
[2022-01-09] MEDS: metroNIDAZOLE 500 MG/ISO 100ML 500 MG/100 ML BAG 100 MG IVPB ×3 (05:05→22:27)
[2022-01-09] MEDS: LACTATED RINGERS 1,000 ML 50 ML IV CONT (05:05)
[2022-01-09 05:20] LABS: Hematocrit 29.5 % (42.0-52.0); Hemoglobin 9.3 g/dL (14.0-18.0); Mean Corpuscular HGB Conc 31.5 g/dl (32-36); Mean Corpuscular Hemoglobin 26.1 pg (26-34); Mean Corpuscular Volume 82.9 fl (80-100); Platelet Count Result 155 k/mm3 (150-375); Red Blood Count 3.56 M/mm3 (4.6-6.20); Red Cell Distribution Width 13.8 % (11.5-14.5); White Blood Count 8.2 K/mm3 (4.5-10.0)
[2022-01-09 06:00] VITALS: BP 144/74; PULSE 100; RESP 16; TEMP 36.4; O2SAT 94
[2022-01-09 06:07] LABS: Vancomycin Trough 12.5 ug/mL (10.0-20.0)
[2022-01-09 06:57] LABS: Anion Gap 3 mmol/L (8-16); Blood Urea Nitrogen 32 mg/dL (9-20); Calcium 7.3 mg/dL (8.4-10.2); Carbon Dioxide 27 mmol/L (22-30); Chloride 110 mmol/L (98-107); Estimated CRCL calculation 64 ml/min; Estimated Glomerular Filt Rate > 60; Glucose 81 mg/dL (65-110); Magnesium 1.8 mg/dL (1.6-2.3); Potassium 2.8 mmol/L (3.4-5.0); Sodium 140 mmol/L (137-145)
[2022-01-09] MEDS: POTASSIUM CHLORIDE INJ 40 MEQ in SODIUM CHLORIDE 0.9% IV 500 ML 130 MEQ IVPB (07:58)
[2022-01-09] MEDS: LOSARTAN POTASSIUM 50 MG TABLET PO (09:15)
[2022-01-09] MEDS: ATORVASTATIN 40 MG TABLET PO (09:15)
[2022-01-09] MEDS: ASPIRIN 325 MG TABLET PO (09:15)
[2022-01-09] MEDS: MORPHINE SULFATE (*CRX) 15 MG TABCR PO ×2 (09:15→22:23)
[2022-01-09] MEDS: FAMOTIDINE 20 MG TABLET 40 MG PO ×2 (09:15→17:05)
[2022-01-09] MEDS: ENOXAPARIN 80 MG/0.8 ML SYRINGE 65 MG SUB-Q ×2 (09:16→22:29)
[2022-01-09] MEDS: MAGNESIUM OXIDE 400 MG TABLET PO (09:16)
[2022-01-09 09:17] VITALS: PULSE 100
[2022-01-09] MEDS: POTASSIUM CHLORIDE 20 MEQ TABLET 40 MEQ PO (09:17)
[2022-01-09] MEDS: METOPROLOL TARTRATE 50 MG TAB PO ×2 (09:17→22:22)
[2022-01-09] MEDS: PANTOPRAZOLE SODIUM IV 40 MG VIAL IV PUSH (09:17)
[2022-01-09] MEDS: CENTRAL LINE FLUSH 10 ML IV PUSH ×4 (09:23→22:27)
--- NOTE | 2022-01-09 10:26 | PC.NURSE ---
call to pharm for 0900 dose of oz
--- NOTE | 2022-01-09 12:47 | PC.NURSE ---
call to pharmacy, oz dose from 0900 not available on floor
--- NOTE | 2022-01-09 13:41 | PM.IMPN ---
Progress Note: A&P Assessment and Plan (1) Septic shock: Code(s): A41.9 - Sepsis, unspecified organism; R65.21 - Severe sepsis with septic shock Status: Acute Assessment and Plan: -Management per lunchroom operator -Levophed discontinued. Blood pressure stable -UA reflective of UTI -01/06 CT abdomen and pelvis showed extra luminal gas and trace fluid adjacent to the sigmoid colon and rectum which may be secondary to diverticulitis or stercoral colitis, diffuse bladder wall thickening which may be secondary to cystitis or chronic outlet obstruction, mild right hydronephrosis and hydroureter, bladder stones, small pleural effusion left was than right, large sliding hiatal hernia. -01/06: Chest x-ray Airspace opacities in mid and lower lung zones likely atelectasis, small left pleural effusion. -continue cefepime, vancomycin, Flagyl for anaerobic coverage given patient may have diverticulitis or stercoral colitis. 01/09/2022 interval history: 71 y/o with CVA now prasents with septic shock most likel 2/2 to UTI and urine culture is E coli and Enterococcus species being treated Cefepime and and vancomycin also there is a concern for diverticulitis and Flagyl was added will discuss with ID pharmacy and further recommendation to follow, patient blood pressure is now normalized and patient been afebrile, patient also found to have bilateral upper extremity DVT currently treated with Lovenox will switch over to oral anticoagulation upon discharge, patient has lower extremity wound will be seen by wound nurse, patient with upper or lower extremity weakness will continue PT OT patient will benefit going to rehab. patient is more confused today discussed with the patient's daughter, (2) Acute UTI: Code(s): N39.0 - Urinary tract infection, site not specified Status: Acute Assessment and Plan: UA reflective of UTI - continue cefepime (3) Acute kidney injury: Code(s): N17.9 - Acute kidney failure, unspecified Status: Acute Assessment and Plan: -continue maintenance IV fluids -monitor renal function, electrolytes and urine output (4) CVA (cerebral vascular accident): Code(s): I63.9 - Cerebral infarction, unspecified Status: Acute Assessment and Plan: - history of recent CVA (5) LV dysfunction: Code(s): I51.9 - Heart disease, unspecified Status: Acute Assessment and Plan: 12/17/2021: Echocardiogram showed mild LV enlargement with moderate systolic dysfunction, EF 35-40%, grade 1 diastolic dysfunction, aortic valve sclerosis without stenosis. Dilated left atrium. Normal valvular disease (6) Chronic respiratory failure: Code(s): J96.10 - Chronic respiratory failure, unspecified whether with hypoxia or hypercapnia Status: Acute Assessment and Plan: Patient is post CVA, [facility]. CTA chest on the last admission was negative for pulmonary embolism but did show large sliding hiatal hernia, emphysema and bilateral lower lobe infiltrates. Subjective Date/time seen: 01/09/22 13:41 01/09/2022 interval history: 71 y/o with CVA now prasents with septic shock most likel 2/2 to UTI and urine culture is E coli and Enterococcus species being treated Cefepime and and vancomycin also there is a concern for diverticulitis and Flagyl was added will discuss with ID pharmacy and further recommendation to follow, patient blood pressure is now normalized and patient been afebrile, patient also found to have bilateral upper extremity DVT currently treated with Lovenox will switch over to oral anticoagulation upon discharge, patient has lower extremity wound will be seen by wound nurse, patient with upper or lower extremity weakness will continue PT OT patient will benefit going to rehab. patient is more confused today discussed with the patient's daughter, Review of Systems Review of Systems: ROS unobtainable: Yes
[2022-01-09 15:48] LABS: Potassium 3.1 mmol/L (3.4-5.0)
[2022-01-09 15:52] LABS: Anion Gap 1 mmol/L (8-16); Blood Urea Nitrogen 29 mg/dL (9-20); Carbon Dioxide 27 mmol/L (22-30); Chloride 107 mmol/L (98-107); Estimated CRCL calculation 58 ml/min; Estimated Glomerular Filt Rate > 60; Glucose 107 mg/dL (65-110); Sodium 135 mmol/L (137-145)
[2022-01-09 21:56] VITALS: BP 128/71; PULSE 87; RESP 18; TEMP 37.1; O2SAT 90
[2022-01-09] MEDS: TAMSULOSIN HCL 0.4 MG CAPSULE PO (22:13)
[2022-01-09 22:22] VITALS: PULSE 87
[2022-01-09] MEDS: QUEtiapine FUMARATE 25 MG TABLET 12.5 MG PO (22:23)
--- NOTE | 2022-01-10 | ECHO_ITS ---
Patient Info Name: Danish Adamson Age: 71 years : 1950 Gender: Male Ht: 70 in Wt: 148 lbs BSA: 1.82 m2 HR: 82 bpm BP: 130 / 70 mmHg Heart Rhythm: Sinus Rhythm Technical Quality: Fair Exam Date: 01/10/2022 4:08 PM Exam Location: [facility] Patient Status: Inpatient Admit Date: 01/06/2022 Staff Ordering Physician: Amparo Payton MD Real Estate Photographer: Samantha Julien RDCS Attending Provider: Isela Coffman MD Exam Type: CA echo doppler w bubble study Study Info Indications - CONCERN FOR CARDIOEMBOLIC STROKE Complete two-dimensional, color flow and Doppler transthoracic echocardiogram is performed with agitated saline. Contrast/Agitated Saline Contrast/Ag. Saline: Agitated Saline Amount: 20.00 ml Administered By: [facility] Existing IV Access: Yes IV Access Condition: patent with no signs of infiltration Summary 1. Left ventricular chamber dimension is mildly enlarged. 2. Left ventricular systolic function is mildly reduced, estimated at 40-45%. 3. There is hypokinesis of the basal anteroseptum, mid anteroseptum, basal inferolateral, mid inferolateral, basal inferoseptum, and mid inferoseptum murcia. 4. The left ventricular diastolic function is grade I diastolic dysfunction. 5. Right ventricular chamber dimension is normal. 6. Right ventricular systolic function is normal. 7. Right atrial chamber dimension is mildly enlarged. 8. There is trace aortic valve regurgitation. 9. There is mild mitral valve regurgitation. 10. There is trace tricuspid valve regurgitation. Left Ventricle There is hypokinesis of the basal anteroseptum, mid anteroseptum, basal inferolateral, mid inferolateral, basal inferoseptum, and mid inferoseptum murcia. Left ventricular chamber dimension is mildly enlarged. Left ventricular systolic function is mildly reduced, estimated at 40-45%. There is no increased left ventricular wall thickness. The left ventricular diastolic function is grade I diastolic dysfunction. Right Ventricle Right ventricular chamber dimension is normal. Right ventricular systolic function is normal. Left Atria Left atrial chamber dimension is normal. Right Atria Right atrial chamber dimension is mildly enlarged. Atrial Septum Intact interatrial septum visualized by agitated saline imaging. Aortic Valve The aortic valve is probable trileaflet. There is no aortic valve stenosis. There is trace aortic valve regurgitation. There is mild aortic valve calcification. Pulmonic Valve The pulmonic valve is not well visualized. Mitral Valve The mitral valve has normal leaflets. There is no mitral valve stenosis. There is mild mitral valve regurgitation. The mitral valve annulus is mildly calcified. Tricuspid Valve The tricuspid valve leaflets are normal. There is no significant tricuspid valve stenosis. There is trace tricuspid valve regurgitation. Pericardium/Pleural There is no pericardial effusion. Aorta The aortic root size at the sinus of Valsalva is normal. Left Ventricular Outflow Tract Name Value Normal LVOT 2D LVOT Diameter 2.0 cm LVOT Doppler
[2022-01-10] MEDS: LACTATED RINGERS 1,000 ML 50 ML IV CONT (05:10)
[2022-01-10] MEDS: CENTRAL LINE FLUSH 10 ML IV PUSH ×4 (05:12→23:40)
[2022-01-10 05:29] LABS: Hematocrit 27.9 % (42.0-52.0); Hemoglobin 8.7 g/dL (14.0-18.0); Mean Corpuscular HGB Conc 31.2 g/dl (32-36); Mean Corpuscular Hemoglobin 25.9 pg (26-34); Mean Platelet Volume 11.6 fl (7.4-10.4); Platelet Count Result 154 k/mm3 (150-375); Red Blood Count 3.36 M/mm3 (4.6-6.20); Red Cell Distribution Width 14.2 % (11.5-14.5); White Blood Count 6.5 K/mm3 (4.5-10.0)
[2022-01-10 05:45] LABS: Anion Gap 2 mmol/L (8-16); Blood Urea Nitrogen 26 mg/dL (9-20); Calcium 7.2 mg/dL (8.4-10.2); Carbon Dioxide 26 mmol/L (22-30); Chloride 111 mmol/L (98-107); Estimated CRCL calculation 64 ml/min; Estimated Glomerular Filt Rate > 60; Glucose 73 mg/dL (65-110); Magnesium 1.9 mg/dL (1.6-2.3); Potassium 3.5 mmol/L (3.4-5.0); Sodium 139 mmol/L (137-145)
[2022-01-10 06:00] VITALS: BP 149/60; PULSE 90; RESP 16; TEMP 37.2; O2SAT 94
[2022-01-10] MEDS: metroNIDAZOLE 500 MG/ISO 100ML 500 MG/100 ML BAG 100 MG IVPB ×3 (06:01→23:39)
[2022-01-10 08:00] VITALS: BP 130/70; PULSE 88; RESP 16; TEMP 36.9; O2SAT 92
[2022-01-10 08:02] VITALS: PULSE 84
[2022-01-10] MEDS: ATORVASTATIN 40 MG TABLET PO (08:02)
[2022-01-10] MEDS: ENOXAPARIN 80 MG/0.8 ML SYRINGE 65 MG SUB-Q ×2 (08:02→21:02)
[2022-01-10] MEDS: ASPIRIN 325 MG TABLET PO (08:02)
[2022-01-10] MEDS: FAMOTIDINE 20 MG TABLET 40 MG PO ×2 (08:02→16:59)
[2022-01-10] MEDS: MORPHINE SULFATE (*CRX) 15 MG TABCR PO ×2 (08:02→21:07)
[2022-01-10] MEDS: METOPROLOL TARTRATE 50 MG TAB PO ×2 (08:02→21:03)
[2022-01-10] MEDS: MAGNESIUM OXIDE 400 MG TABLET PO (08:03)
[2022-01-10] MEDS: LOSARTAN POTASSIUM 50 MG TABLET PO (08:03)
[2022-01-10] MEDS: PANTOPRAZOLE SODIUM IV 40 MG VIAL IV PUSH (08:03)
[2022-01-10] MEDS: POTASSIUM CHLORIDE 20 MEQ PACKET (FOR LIQUID) 40 MEQ PO (10:37)
--- NOTE | 2022-01-10 11:17 | P.CDI_ITS ---
CDI Query Clarified Diagnosis Clarified Diagnosis: Heart disease noted in the patients problem list. Please specify type and acuity of heart failure if known. * Acute * Chronic * Acute on Chronic * Unknown * Systolic * Diastolic * Combined Systolic and Diastolic * Unknown <Raquel Fowler RN - Last Filed: 01/10/22 11:19> Provider Comments most likely patient had acute on chronic Combined Systolic and Diastolic congestive heart failure <Boni Mitchell MD - Last Filed: 01/26/22 17:21>
--- NOTE | 2022-01-10 11:17 | WPDCDIQUERY2 ---
CDI Query Clarified Diagnosis Clarified Diagnosis: Heart disease noted in the patients problem list. Please specify type and acuity of heart failure if known. Acute Chronic Acute on Chronic Unknown Systolic Diastolic Combined Systolic and Diastolic Unknown <Raquel Fowler RN - Last Filed: 01/10/22 11:19> Provider Comments most likely patient had acute on chronic Combined Systolic and Diastolic congestive heart failure <Boni Mitchell MD - Last Filed: 01/26/22 17:21>
--- NOTE | 2022-01-10 11:40 | PCOTNOTE ---
Attempted to see patient this AM, patient unable to stay awake to participate in OT at this time.
--- NOTE | 2022-01-10 13:17 | PC.NURSE ---
to CT via bed
--- NOTE | 2022-01-10 14:20 | PCNFU ---
Nutrition Follow-Up Complete: Increased Protein needs as related to wounds as evidenced by Pressure ulcers reported. Goal:Meet estimated nutritional needs - Not meeting goal due to mental status, combative with care Pt current nutrition is Full liquid diet. Compact BID. Amos BID. 0-bites, refusing meals. Nutrition recommendation: Continue same care plan and goals. Aggressive nutrition support is likely not a good option. Continue to encourage PO and supplements as much as able. Last recorded weight is 67.4 kg. Bowel Motility: +1 BM 01/08/22 Labs Reviewed: Hgb 8.7, Hct 27.9, Alb 2.1, BUN 26 Meds Noted: Lovenox, cefepime Skin: Multiple wounds: Stage II PU-ischium and ab. DT-sacrum, left ischium,right heel, right foot Additional Notes: Pt is not taking much PO and is combative with attempts to feed, per tech. Will monitor every 3 days.
--- NOTE | 2022-01-10 14:32 | PM.IMPN ---
Progress Note: A&P Assessment and Plan (1) Septic shock: Code(s): A41.9 - Sepsis, unspecified organism; R65.21 - Severe sepsis with septic shock Status: Acute Assessment and Plan: -Management per breadman -Levophed discontinued. Blood pressure stable -UA reflective of UTI -01/06 CT abdomen and pelvis showed extra luminal gas and trace fluid adjacent to the sigmoid colon and rectum which may be secondary to diverticulitis or stercoral colitis, diffuse bladder wall thickening which may be secondary to cystitis or chronic outlet obstruction, mild right hydronephrosis and hydroureter, bladder stones, small pleural effusion left was than right, large sliding hiatal hernia. -01/06: Chest x-ray Airspace opacities in mid and lower lung zones likely atelectasis, small left pleural effusion. -continue cefepime, vancomycin, Flagyl for anaerobic coverage given patient may have diverticulitis or stercoral colitis. 01/10/2022 interval history: 71 y/o with CVA now presented with septic shock most likel 2/2 to UTI and urine culture is E coli and Enterococcus species being treated Cefepime and and vancomycin also there is a concern for diverticulitis and Flagyl was added will discuss with ID pharmacy and further recommendation to follow, patient blood pressure is now normalized and patient been afebrile, patient also found to have bilateral upper extremity DVT currently treated with Lovenox will switch over to oral anticoagulation upon discharge, today patient is quite somnolent to further evaluate CT scan of the head was done it showed worsening cerebral infarct communicated with neurologist suspect cardioembolic event and further workup is in progress, patient is being treated with full-dose Lovenox, patient has lower extremity wound will be seen by wound nurse, patient with upper or lower extremity weakness will continue PT OT patient will benefit going to rehab. patient is more confused today discussed with the patient's daughter, (2) Acute UTI: Code(s): N39.0 - Urinary tract infection, site not specified Status: Acute Assessment and Plan: UA reflective of UTI - continue cefepime (3) Acute kidney injury: Code(s): N17.9 - Acute kidney failure, unspecified Status: Acute Assessment and Plan: -continue maintenance IV fluids -monitor renal function, electrolytes and urine output (4) CVA (cerebral vascular accident): Code(s): I63.9 - Cerebral infarction, unspecified Status: Acute Assessment and Plan: - history of recent CVA (5) LV dysfunction: Code(s): I51.9 - Heart disease, unspecified Status: Acute Assessment and Plan: 12/17/2021: Echocardiogram showed mild LV enlargement with moderate systolic dysfunction, EF 35-40%, grade 1 diastolic dysfunction, aortic valve sclerosis without stenosis. Dilated left atrium. Normal valvular disease (6) Chronic respiratory failure: Code(s): J96.10 - Chronic respiratory failure, unspecified whether with hypoxia or hypercapnia Status: Acute Assessment and Plan: Patient is post CVA, was [facility] L nasal cannula. CTA chest on the last admission was negative for pulmonary embolism but did show large sliding hiatal hernia, emphysema and bilateral lower lobe infiltrates. Subjective Date/time seen: 01/10/22 14:32 01/10/2022 interval history: 71 y/o with CVA now presented with septic shock most likel 2/2 to UTI and urine culture is E coli and Enterococcus species being treated Cefepime and and vancomycin also there is a concern for diverticulitis and Flagyl was added will discuss with ID pharmacy and further recommendation to follow, patient blood pressure is now normalized and patient been afebrile, patient also found to have bilateral upper extremity DVT currently treated with Lovenox will switch over to oral anticoagulation upon discharge, today patient is quite somnolent to [facility]
[2022-01-10 16:00] VITALS: BP 138/67; PULSE 71; RESP 18; TEMP 36.7; O2SAT 91
[2022-01-10] MEDS: AMPICILLIN SULB 3 GM/NS 100 ML 3 GM/100 ML VIAL IVPB ×2 (17:01→23:40)
[2022-01-10 21:03] VITALS: PULSE 71
[2022-01-10] MEDS: QUEtiapine FUMARATE 25 MG TABLET 12.5 MG PO (21:04)
[2022-01-10] MEDS: TAMSULOSIN HCL 0.4 MG CAPSULE PO (21:07)
[2022-01-10 21:25] VITALS: BP 156/74; PULSE 79; RESP 17; TEMP 36.9; O2SAT 90
[2022-01-11] VITALS (7 sets, daily range): BP systolic 135–160; BP diastolic 65–72; PULSE 64–83; RESP 16–18; TEMP 36.6–36.8; O2SAT 90–98
[2022-01-11 01:18] LABS: Alveolar/Arterial O2 Gradient 129.1 mmHg; Base Excess ABG 0.7 mEq/l (+/-2.0); Device NASAL CANNULA; Fractional Inspired Oxygen 35 %; HCO3 ABG 25.4 mEq/l (22.0-26.0); Modified Allen's Test Pass; Oxygen Saturation ABG 94.7 % (95.0-100.0); Oxyhemoglobin 92.9 % THb (90.0-100.0); PCO2 ABG 41.3 mmHg (35.0-45.0); PO2 ABG 72.4 mmHg (80.0-100.0); PO2 FiO2 Ratio Arterial Blood 2.07 %; Site Drawn RIGHT RADIAL; Total Hemoglobin 9.9 g/dL (12.0-18.0); pH ABG 7.407 (7.350-7.450)
[2022-01-11] MEDS: AMPICILLIN SULB 3 GM/NS 100 ML 3 GM/100 ML VIAL IVPB ×4 (05:46→23:39)
[2022-01-11] MEDS: metroNIDAZOLE 500 MG/ISO 100ML 500 MG/100 ML BAG 100 MG IVPB ×3 (05:46→21:05)
[2022-01-11] MEDS: CENTRAL LINE FLUSH 10 ML IV PUSH ×3 (05:46→23:43)
[2022-01-11] MEDS: LACTATED RINGERS 1,000 ML 50 ML IV CONT (05:47)
[2022-01-11 07:21] LABS: Hematocrit 28.1 % (42.0-52.0); Hemoglobin 8.7 g/dL (14.0-18.0); Mean Corpuscular Hemoglobin 25.4 pg (26-34); Mean Corpuscular Volume 82.2 fl (80-100); Mean Platelet Volume 12.3 fl (7.4-10.4); Platelet Count Result 182 k/mm3 (150-375); Red Blood Count 3.42 M/mm3 (4.6-6.20); Red Cell Distribution Width 14.4 % (11.5-14.5); White Blood Count 6.3 K/mm3 (4.5-10.0)
[2022-01-11 07:27] LABS: Anion Gap 1 mmol/L (8-16); Blood Urea Nitrogen 22 mg/dL (9-20); Calcium 7.2 mg/dL (8.4-10.2); Carbon Dioxide 28 mmol/L (22-30); Chloride 109 mmol/L (98-107); Estimated CRCL calculation 63 ml/min; Estimated Glomerular Filt Rate > 60; Glucose 63 mg/dL (65-110); Potassium 3.2 mmol/L (3.4-5.0); Sodium 138 mmol/L (137-145)
--- NOTE | 2022-01-11 08:52 | WPDNEURCNPN ---
Assessment and Plan Assessment and plan (1) CVA (cerebral vascular accident): Code(s): I63.9 - Cerebral infarction, unspecified Status: Acute (2) Septic shock: Code(s): A41.9 - Sepsis, unspecified organism; R65.21 - Severe sepsis with septic shock Status: Acute (3) DVT (deep venous thrombosis): Code(s): I82.409 - Acute embolism and thrombosis of unspecified deep veins of unspecified lower extremity Status: Acute Plan Danish Adamson is a 71 year old male with a history of recent bilateral stroke, LUE DVT, left AKA, BPH, chronic tobacco use, history of kidney cancer and lymphoma, as well as cardiomyopathy who presented initially due to altered [facility] status from [facility]06 complicated by hypotension and sepsis, found to have new infarcts in watershed region. Given distribution of strokes, likely related to hypotension on presentation, although embolic stroke is still a possibility. Patient does have a history of DVT, but there was no evidence of shunt on prior echo. Etiology of first stroke is still unclear, likely embolic stroke of undetermined significance. Given unclear etiology of stroke and moderate to severe risk of major hemorrhage (based on HAS-BLED score of 2-3), will hold off on retirement anticoagulation for the purpose of secondary stroke prevention. Discussed risks/benefits with family at bedside. I will defer need for anticoagulation due to DVT to the primary service. - Continue ASA 81mg daily - Continue Lipitor 40mg daily - Recommend repeat surface echo with bubble study, pending Consult date: 01/11/22 Reason for consult: Stroke HPI: Danish Adamson is a 71 year old male with a history of recent bilateral stroke, LUE DVT, left AKA, BPH, chronic tobacco use, history of kidney cancer and lymphoma, as well as cardiomyopathy who presented initially due to altered mental status from jail on 01/06. Patient was hypotensive on presentation which was refractory to multiple fluid boluses. Patient was admitted to ICU and started on Levophed. UA was concerning for UTI and CT ABD/pelvis was concerning for possible diverticulitis. Once BP stabilized, patient was transferred out of the ICU to the floors. CT head was obtained due to decreased level of consciousness which showed subacute infarcts of the occipital lobes as well as old left temporal infarction. Of note, patient was admitted for stroke in December 2021, when he was found to have acute infarcts in the right caudate, bilateral posterior frontal lobes, bilateral parietal lobes, bilateral occipital lobes, bilateral posterior temporal lobes, and bilateral cerebellum. CTA brain and carotid at the time showed 24% stenosis of proximal R ICA and 0% stenosis of proximal L ICA. Echo was done but was limited due to motion artifact, although did not reveal any obvious shunt or clot. Cardiology was consulted and recommended against any invasive testing due to patient's underlying medical issues. UE Doppler showed left cephalic vein thrombosis (superficial) and right brachial vein thrombosis (deep). He was not started on any anticoagulation. He is currently on treatment dose of Lovenox during this admission. MRI from this admission shows subacute infarcts, consistent with the location of the prior strokes that were sustained last month. However, there are new areas of diffuse restriction in bilateral posterior frontal lobes, parietal lobes, and occipital lobes suggesting recent ischemia. Family member at bedside, she agrees that patient is close to his baseline. Review of Systems Review of Systems: ROS unobtainable: Yes unobtainable due to mental status PMFSH Past Medical History Medical History Above knee amputation of left lower extremity BPH (benign prostatic hyperplasia) Gastroesophageal reflux disease History of kidney cancer History of lymphoma Substance abuse Tobacco abuse Surgical
--- NOTE | 2022-01-11 09:15 | P.CDI_ITS ---
CDI Query Clarified Diagnosis Clarified Diagnosis: Urine culture from 01/06/22 grew >100,000 E Coli. Chronic indwelling Urinary catheter, present upon arrival to ED documented. Urinary Catheter changed by nursing on 01/06/22. Pt started on Cefepime IV daily. Clarification request - UTI has been documented, chronic indwelling martell catheter documented. Please clarify if UTI is: * due to/associated with chronic indwelling martell catheter * not due to/associated with chronic indwelling martell catheter * unable to determine <Raquel Fowler RN - Last Filed: 01/11/22 09:23> Provider Comments due to/associated with chronic indwelling martell catheter <Boni Mitchell MD - Last Filed: 01/26/22 17:24>
[2022-01-11] MEDS: ENOXAPARIN 80 MG/0.8 ML SYRINGE 65 MG SUB-Q ×2 (10:07→21:01)
[2022-01-11] MEDS: PANTOPRAZOLE SODIUM IV 40 MG VIAL IV PUSH (10:07)
[2022-01-11] MEDS: ASPIRIN 325 MG TABLET PO (10:11)
[2022-01-11] MEDS: MAGNESIUM OXIDE 400 MG TABLET PO (10:11)
[2022-01-11] MEDS: LOSARTAN POTASSIUM 50 MG TABLET PO (10:11)
[2022-01-11] MEDS: METOPROLOL TARTRATE 50 MG TAB PO ×2 (10:11→21:02)
[2022-01-11] MEDS: FAMOTIDINE 20 MG TABLET 40 MG PO ×2 (10:11→17:03)
[2022-01-11] MEDS: MORPHINE SULFATE (*CRX) 15 MG TABCR PO ×2 (10:11→21:02)
[2022-01-11] MEDS: ATORVASTATIN 40 MG TABLET PO (10:11)
[2022-01-11] MEDS: POTASSIUM CHLORIDE 20 MEQ TABLET 40 MEQ PO (12:48)
--- NOTE | 2022-01-11 14:56 | PM.IMPN ---
Progress Note: A&P Assessment and Plan (1) Septic shock: Code(s): A41.9 - Sepsis, unspecified organism; R65.21 - Severe sepsis with septic shock Status: Acute Assessment and Plan: -Management per ecological economist -Levophed discontinued. Blood pressure stable -UA reflective of UTI -01/06 CT abdomen and pelvis showed extra luminal gas and trace fluid adjacent to the sigmoid colon and rectum which may be secondary to diverticulitis or stercoral colitis, diffuse bladder wall thickening which may be secondary to cystitis or chronic outlet obstruction, mild right hydronephrosis and hydroureter, bladder stones, small pleural effusion left was than right, large sliding hiatal hernia. -01/06: Chest x-ray Airspace opacities in mid and lower lung zones likely atelectasis, small left pleural effusion. -continue cefepime, vancomycin, Flagyl for anaerobic coverage given patient may have diverticulitis or stercoral colitis. 01/11/2022 interval history: 71 y/o with CVA now presented with septic shock most likel 2/2 to UTI and urine culture is E coli and Enterococcus species being treated Cefepime and and vancomycin also there is a concern for diverticulitis and Flagyl was added discuss with ID pharmacist and recommended to dc Cefepime and started Ampicillin, patient blood pressure is now normalized and patient been afebrile, patient also found to have bilateral upper extremity DVT currently treated with Lovenox will switch over to oral anticoagulation upon discharge, on 01/10 patient was quite somnolent to further evaluate CT scan of the head was done it showed worsening cerebral infarct communicated with neurologist suspect cardioembolic event and further workup is in progress, patient is being treated with full-dose Lovenox, patient has lower extremity wound will be seen by wound nurse, patient with upper or lower extremity weakness will continue PT OT patient will benefit going to rehab. patient is more awake today his is present in the room suggested to discuss code status, she will talk to their daughter and will plan. (2) Acute UTI: Code(s): N39.0 - Urinary tract infection, site not specified Status: Acute Assessment and Plan: UA reflective of UTI - continue cefepime (3) Acute kidney injury: Code(s): N17.9 - Acute kidney failure, unspecified Status: Acute Assessment and Plan: -continue maintenance IV fluids -monitor renal function, electrolytes and urine output (4) CVA (cerebral vascular accident): Code(s): I63.9 - Cerebral infarction, unspecified Status: Acute Assessment and Plan: - history of recent CVA (5) LV dysfunction: Code(s): I51.9 - Heart disease, unspecified Status: Acute Assessment and Plan: 12/17/2021: Echocardiogram showed mild LV enlargement with moderate systolic dysfunction, EF 35-40%, grade 1 diastolic dysfunction, aortic valve sclerosis without stenosis. Dilated left atrium. Normal valvular disease (6) Chronic respiratory failure: Code(s): J96.10 - Chronic respiratory failure, unspecified whether with hypoxia or hypercapnia Status: Acute Assessment and Plan: Patient is post CVA, was transferred to [facility] on 4 L nasal cannula. CTA chest on the last admission was negative for pulmonary embolism but did show large sliding hiatal hernia, emphysema and bilateral lower lobe infiltrates. Subjective Date/time seen: 01/11/22 14:56 01/11/2022 interval history: 71 y/o with CVA now presented with septic shock most likel 2/2 to UTI and urine culture is E coli and Enterococcus species being treated Cefepime and and vancomycin also there is a concern for diverticulitis and Flagyl was added discuss with ID pharmacist and recommended to dc Cefepime and started Ampicillin, patient blood pressure is now normalized and patient been afebrile, patient also found to have bilateral upper extremity DVT currently treated with Lovenox
[2022-01-11 15:43] LABS: Chloride Rand Ur 105 mmol/L (32-290); Chloride/Creatinine Rand Ur 219 (23-275); Creatinine Random Urine 48 mg/dL (20-320)
[2022-01-11] MEDS: QUEtiapine FUMARATE 25 MG TABLET 12.5 MG PO (21:02)
[2022-01-11] MEDS: TAMSULOSIN HCL 0.4 MG CAPSULE PO (21:02)
[2022-01-12] VITALS (9 sets, daily range): BP systolic 124–153; BP diastolic 64–81; PULSE 71–91; RESP 14–20; TEMP 36.4–36.6; O2SAT 91–100
[2022-01-12] MEDS: LACTATED RINGERS 1,000 ML 50 ML IV CONT (01:53)
[2022-01-12 04:54] LABS: Hematocrit 27.5 % (42.0-52.0); Hemoglobin 8.6 g/dL (14.0-18.0); Mean Corpuscular HGB Conc 31.3 g/dl (32-36); Mean Corpuscular Hemoglobin 25.7 pg (26-34); Mean Corpuscular Volume 82.3 fl (80-100); Mean Platelet Volume 11.5 fl (7.4-10.4); Platelet Count Result 190 k/mm3 (150-375); Red Blood Count 3.34 M/mm3 (4.6-6.20); Red Cell Distribution Width 14.6 % (11.5-14.5); White Blood Count 7.6 K/mm3 (4.5-10.0)
[2022-01-12] MEDS: metroNIDAZOLE 500 MG/ISO 100ML 500 MG/100 ML BAG 100 MG IVPB ×3 (05:02→21:00)
[2022-01-12] MEDS: CENTRAL LINE FLUSH 20 ML IV PUSH (05:06)
[2022-01-12 05:08] LABS: Anion Gap -2 mmol/L (8-16); Blood Urea Nitrogen 16 mg/dL (9-20); Calcium 7.1 mg/dL (8.4-10.2); Carbon Dioxide 30 mmol/L (22-30); Chloride 108 mmol/L (98-107); Estimated CRCL calculation 65 ml/min; Estimated Glomerular Filt Rate > 60; Glucose 69 mg/dL (65-110); Potassium 3.6 mmol/L (3.4-5.0); Sodium 136 mmol/L (137-145)
[2022-01-12] MEDS: AMPICILLIN SULB 3 GM/NS 100 ML 3 GM/100 ML VIAL IVPB ×4 (05:41→23:43)
[2022-01-12] MEDS: CENTRAL LINE FLUSH 10 ML IV PUSH ×3 (05:43→21:08)
[2022-01-12] MEDS: ASPIRIN 325 MG TABLET PO (08:45)
[2022-01-12] MEDS: FAMOTIDINE 20 MG TABLET 40 MG PO (08:45)
[2022-01-12] MEDS: ATORVASTATIN 40 MG TABLET PO (08:45)
[2022-01-12] MEDS: MAGNESIUM OXIDE 400 MG TABLET PO (08:45)
[2022-01-12] MEDS: LOSARTAN POTASSIUM 50 MG TABLET PO (08:45)
[2022-01-12] MEDS: MORPHINE SULFATE (*CRX) 15 MG TABCR PO ×2 (08:46→20:59)
[2022-01-12] MEDS: METOPROLOL TARTRATE 50 MG TAB PO ×2 (08:46→20:59)
[2022-01-12] MEDS: PANTOPRAZOLE SODIUM IV 40 MG VIAL IV PUSH (08:46)
[2022-01-12] MEDS: POTASSIUM CHLORIDE 20 MEQ TABLET 40 MEQ PO (08:52)
--- NOTE | 2022-01-12 09:05 | PC.NURSE ---
Let Dr. Mitchell know that patient refused lovenox injection
--- NOTE | 2022-01-12 09:05 | PC.NURSE ---
called pharmacy for IV lasix that was added to morning medications, will give when received
[2022-01-12] MEDS: FUROSEMIDE INJ 40 MG/4 ML VIAL IV PUSH (11:08)
[2022-01-12 11:14] LABS: Glucose Point of Care 87 mg/dl (65-105)
--- NOTE | 2022-01-12 12:51 | PM.IMPN ---
Progress Note: A&P Assessment and Plan (1) Septic shock: Code(s): A41.9 - Sepsis, unspecified organism; R65.21 - Severe sepsis with septic shock Status: Acute Assessment and Plan: -Management per hand paint mixer -Levophed discontinued. Blood pressure stable -UA reflective of UTI -01/06 CT abdomen and pelvis showed extra luminal gas and trace fluid adjacent to the sigmoid colon and rectum which may be secondary to diverticulitis or stercoral colitis, diffuse bladder wall thickening which may be secondary to cystitis or chronic outlet obstruction, mild right hydronephrosis and hydroureter, bladder stones, small pleural effusion left was than right, large sliding hiatal hernia. -01/06: Chest x-ray Airspace opacities in mid and lower lung zones likely atelectasis, small left pleural effusion. -continue cefepime, vancomycin, Flagyl for anaerobic coverage given patient may have diverticulitis or stercoral colitis. 01/12/2022 interval history: 71 y/o with CVA now presented with septic shock most likel 2/2 to UTI and urine culture is E coli and Enterococcus species being treated Cefepime and and vancomycin also there is a concern for diverticulitis and Flagyl was added discuss with ID pharmacist and recommended to dc Cefepime and started Ampicillin, patient blood pressure is now normalized and patient been afebrile, patient also found to have bilateral upper extremity DVT currently treated with Lovenox will switch over to oral anticoagulation upon discharge, however on 01/10 patient was quite somnolent to further evaluate CT scan of the head was done it showed worsening cerebral infarct and concerning for cerbral hemorragh, communicated with neurologist suspect cardioembolic event and further workup is in progress, patient had being treated with full-dose Lovenox and antiplatelets to prevent secondary strokes, I discussed with family for anticoagulation for DVT and risk and benefit to prevent PE but increase risk for Cerebral hemorrhage similaryl risk with antiplat therapy, family is considering hospice for the patient, will follow up and plan. patient has lower extremity wound will be seen by wound nurse, patient with upper or lower extremity weakness will continue PT OT patient will benefit going to rehab. patient is more awake today his and daughter are present in the room suggested she will talk to their daughter and will plan. (2) Acute UTI: Code(s): N39.0 - Urinary tract infection, site not specified Status: Acute Assessment and Plan: UA reflective of UTI - continue cefepime (3) Acute kidney injury: Code(s): N17.9 - Acute kidney failure, unspecified Status: Acute Assessment and Plan: -continue maintenance IV fluids -monitor renal function, electrolytes and urine output (4) CVA (cerebral vascular accident): Code(s): I63.9 - Cerebral infarction, unspecified Status: Acute Assessment and Plan: - history of recent CVA (5) LV dysfunction: Code(s): I51.9 - Heart disease, unspecified Status: Acute Assessment and Plan: 12/17/2021: Echocardiogram showed mild LV enlargement with moderate systolic dysfunction, EF 35-40%, grade 1 diastolic dysfunction, aortic valve sclerosis without stenosis. Dilated left atrium. Normal valvular disease (6) Chronic respiratory failure: Code(s): J96.10 - Chronic respiratory failure, unspecified whether with hypoxia or hypercapnia Status: Acute Assessment and Plan: Patient is post CVA, was transferred to [facility] L nasal cannula. CTA chest on the last admission was negative for pulmonary embolism but did show large sliding hiatal hernia, emphysema and bilateral lower lobe infiltrates. Subjective Date/time seen: 01/12/22 12:51 -Management per hand paint mixer -Levophed discontinued. Blood pressure stable -UA reflective of UTI -01/06 CT abdomen and pelvis showed extra luminal gas and trace fluid justine
[2022-01-12] MEDS: NICOTINE (*PBKC) 21 MG PATCH 1 PATCH TRANSDERM (12:54)
--- NOTE | 2022-01-12 15:00 | PCNFU ---
Nutrition Follow-Up Complete: Increased Protein needs as related to wounds as evidenced by Pressue ulcers reported. Goal:Meet estimanted nutritional needs - not meeting goal Pt current nutrition is Full liquid diet, Amos BID, Ensure compact BID. Nutrition recommendation: Continue to encourage intake as much as possible Last recorded weight is 69.1 kg. Bowel Motility: Last BM 01/08/22 Labs Reviewed: Hgb 8.6, Hct 27.5, Na 136 Meds Noted:Lovenox, cefepime Skin: Stage II ischium, ab; DTI: Sacrum, R foot, R heel, L ischium. Existing L AKA Additional Notes: Ate some pudding today. Has refused all meals since last follow up. Ongoing discussions with family re: goals of care. Will monitor every 3 days.
[2022-01-12] MEDS: ENOXAPARIN 80 MG/0.8 ML SYRINGE 65 MG SUB-Q (20:57)
[2022-01-12] MEDS: TAMSULOSIN HCL 0.4 MG CAPSULE PO (20:58)
[2022-01-12] MEDS: QUEtiapine FUMARATE 25 MG TABLET 12.5 MG PO (20:59)
[2022-01-13] MEDS: LACTATED RINGERS 1,000 ML 50 ML IV CONT (05:01)
[2022-01-13] MEDS: metroNIDAZOLE 500 MG/ISO 100ML 500 MG/100 ML BAG 100 MG IVPB ×3 (05:05→21:47)
[2022-01-13 05:10] LABS: Hemoglobin 8.6 g/dL (14.0-18.0); Mean Corpuscular HGB Conc 30.7 g/dl (32-36); Mean Corpuscular Hemoglobin 25.7 pg (26-34); Mean Corpuscular Volume 83.6 fl (80-100); Mean Platelet Volume 10.9 fl (7.4-10.4); Platelet Count Result 173 k/mm3 (150-375); Red Blood Count 3.35 M/mm3 (4.6-6.20); Red Cell Distribution Width 15.1 % (11.5-14.5); White Blood Count 6.5 K/mm3 (4.5-10.0)
[2022-01-13 05:35] LABS: Anion Gap 0 mmol/L (8-16); Blood Urea Nitrogen 15 mg/dL (9-20); Calcium 7.1 mg/dL (8.4-10.2); Carbon Dioxide 35 mmol/L (22-30); Chloride 102 mmol/L (98-107); Estimated CRCL calculation 65 ml/min; Estimated Glomerular Filt Rate > 60; Glucose 89 mg/dL (65-110); Magnesium 1.9 mg/dL (1.6-2.3); Potassium 2.8 mmol/L (3.4-5.0); Sodium 137 mmol/L (137-145)
[2022-01-13] MEDS: AMPICILLIN SULB 3 GM/NS 100 ML 3 GM/100 ML VIAL IVPB ×4 (05:50→23:28)
[2022-01-13] MEDS: POTASSIUM CHLORIDE 20 MEQ TABLET 40 MEQ PO (05:50)
[2022-01-13] MEDS: CENTRAL LINE FLUSH 10 ML IV PUSH ×3 (05:58→21:55)
[2022-01-13 07:14] VITALS: BP 151/74; PULSE 73; RESP 20; TEMP 36.6; O2SAT 98
[2022-01-13] MEDS: POTASSIUM CHLORIDE INJ 40 MEQ in SODIUM CHLORIDE 0.9% IV 500 ML 130 MEQ IVPB (10:21)
[2022-01-13] MEDS: FUROSEMIDE INJ 40 MG/4 ML VIAL IV PUSH (10:25)
[2022-01-13] MEDS: NICOTINE (*PBKC) 21 MG PATCH 1 PATCH TRANSDERM (10:25)
[2022-01-13] MEDS: PANTOPRAZOLE SODIUM IV 40 MG VIAL IV PUSH (10:25)
[2022-01-13] MEDS: ENOXAPARIN 80 MG/0.8 ML SYRINGE 65 MG SUB-Q (10:26)
[2022-01-13] MEDS: FAMOTIDINE 20 MG TABLET 40 MG PO (10:47)
[2022-01-13] MEDS: ATORVASTATIN 40 MG TABLET PO (10:47)
[2022-01-13] MEDS: MORPHINE SULFATE (*CRX) 15 MG TABCR PO ×2 (10:47→22:02)
[2022-01-13] MEDS: LOSARTAN POTASSIUM 50 MG TABLET PO (10:47)
[2022-01-13] MEDS: MAGNESIUM OXIDE 400 MG TABLET PO (10:48)
[2022-01-13] MEDS: METOPROLOL TARTRATE 50 MG TAB PO ×2 (10:48→21:53)
[2022-01-13] MEDS: ASPIRIN 325 MG TABLET PO (10:48)
[2022-01-13] MEDS: ONDANSETRON INJ 4 MG/2 ML VIAL IV PUSH (11:59)
--- NOTE | 2022-01-13 13:05 | PM.IMPN ---
Progress Note: A&P Assessment and Plan (1) Septic shock: Code(s): A41.9 - Sepsis, unspecified organism; R65.21 - Severe sepsis with septic shock Status: Acute Assessment and Plan: -Management per division manager -Levophed discontinued. Blood pressure stable -UA reflective of UTI -01/06 CT abdomen and pelvis showed extra luminal gas and trace fluid adjacent to the sigmoid colon and rectum which may be secondary to diverticulitis or stercoral colitis, diffuse bladder wall thickening which may be secondary to cystitis or chronic outlet obstruction, mild right hydronephrosis and hydroureter, bladder stones, small pleural effusion left was than right, large sliding hiatal hernia. -01/06: Chest x-ray Airspace opacities in mid and lower lung zones likely atelectasis, small left pleural effusion. -continue cefepime, vancomycin, Flagyl for anaerobic coverage given patient may have diverticulitis or stercoral colitis. 01/13/2022 interval history: 71 y/o with CVA now presented with septic shock most likel 2/2 to UTI and urine culture is E coli and Enterococcus species being treated Cefepime and and vancomycin also there is a concern for diverticulitis and Flagyl was added discuss with ID pharmacist and recommended to dc Cefepime and started Ampicillin, patient blood pressure is now normalized and patient been afebrile, patient also found to have bilateral upper extremity DVT currently treated with Lovenox will switch over to oral anticoagulation upon discharge, however on 01/10 patient was quite somnolent to further evaluate CT scan of the head was done it showed worsening cerebral infarct and concerning for cerbral hemorragh, communicated with neurologist suspect cardioembolic event and further workup is in progress, patient had being treated with full-dose Lovenox and antiplatelets to prevent secondary strokes, I discussed with family for anticoagulation for DVT and risk and benefit to prevent PE but increase risk for Cerebral hemorrhage similaryl risk with antiplat therapy, family is considering hospice for the patient, will follow up and plan. today patient family has agreed to stop anticoagulation, and will discuss with hospice, may discharge home tomorrow, patient has lower extremity wound will be seen by wound nurse, patient with upper or lower extremity weakness will continue PT OT patient will benefit going to rehab. patient is more awake today his and daughter are present in the room suggested she will talk to their daughter and will plan. (2) Acute UTI: Code(s): N39.0 - Urinary tract infection, site not specified Status: Acute Assessment and Plan: UA reflective of UTI - continue cefepime (3) Acute kidney injury: Code(s): N17.9 - Acute kidney failure, unspecified Status: Acute Assessment and Plan: -continue maintenance IV fluids -monitor renal function, electrolytes and urine output (4) CVA (cerebral vascular accident): Code(s): I63.9 - Cerebral infarction, unspecified Status: Acute Assessment and Plan: - history of recent CVA (5) LV dysfunction: Code(s): I51.9 - Heart disease, unspecified Status: Acute Assessment and Plan: 12/17/2021: Echocardiogram showed mild LV enlargement with moderate systolic dysfunction, EF 35-40%, grade 1 diastolic dysfunction, aortic valve sclerosis without stenosis. Dilated left atrium. Normal valvular disease (6) Chronic respiratory failure: Code(s): J96.10 - Chronic respiratory failure, unspecified whether with hypoxia or hypercapnia Status: Acute Assessment and Plan: Patient is post CVA, was transferred to [facility] on 4 L nasal cannula. CTA chest on the last admission was negative for pulmonary embolism but did show large sliding hiatal hernia, emphysema and bilateral lower lobe infiltrates. Subjective Date/time seen: 01/13/22 13:05 01/13/2022 interval history: 71 y/o with CVA now presen
[2022-01-13 14:30] VITALS: BP 136/73; PULSE 78; RESP 16; TEMP 36.5; O2SAT 98
[2022-01-13 16:35] LABS: Anion Gap -2 mmol/L (8-16); Blood Urea Nitrogen 12 mg/dL (9-20); Calcium 5.9 mg/dL (8.4-10.2); Carbon Dioxide 31 mmol/L (22-30); Chloride 106 mmol/L (98-107); Estimated CRCL calculation 81 ml/min; Estimated Glomerular Filt Rate > 60; Glucose 75 mg/dL (65-110); Sodium 135 mmol/L (137-145)
[2022-01-13] MEDS: TAMSULOSIN HCL 0.4 MG CAPSULE PO (21:00)
[2022-01-13 21:32] VITALS: BP 152/77; PULSE 81; RESP 20; TEMP 36.5; O2SAT 99
[2022-01-13 21:53] VITALS: PULSE 104
[2022-01-13] MEDS: QUEtiapine FUMARATE 25 MG TABLET 12.5 MG PO (21:55)
[2022-01-13 22:58] LABS: Glucose Point of Care 91 mg/dl (65-105)
[2022-01-14] MEDS: POTASSIUM CHLORIDE 20 MEQ TABLET 40 MEQ PO (01:44)
[2022-01-14] MEDS: CENTRAL LINE FLUSH 10 ML IV PUSH (05:31)
[2022-01-14] MEDS: AMPICILLIN SULB 3 GM/NS 100 ML 3 GM/100 ML VIAL IVPB (05:36)
[2022-01-14] MEDS: metroNIDAZOLE 500 MG/ISO 100ML 500 MG/100 ML BAG 100 MG IVPB (05:36)
[2022-01-14 06:00] VITALS: BP 156/68; PULSE 82; RESP 16; TEMP 36.2; O2SAT 94
[2022-01-14 06:05] LABS: Hematocrit 29.4 % (42.0-52.0); Hemoglobin 8.9 g/dL (14.0-18.0); Mean Corpuscular HGB Conc 30.3 g/dl (32-36); Mean Corpuscular Hemoglobin 25.5 pg (26-34); Mean Corpuscular Volume 84.2 fl (80-100); Mean Platelet Volume 11.6 fl (7.4-10.4); Platelet Count Result 198 k/mm3 (150-375); Red Blood Count 3.49 M/mm3 (4.6-6.20); Red Cell Distribution Width 15.7 % (11.5-14.5); White Blood Count 6.6 K/mm3 (4.5-10.0)
[2022-01-14 06:17] LABS: Anion Gap 0 mmol/L (8-16); Blood Urea Nitrogen 12 mg/dL (9-20); Calcium 7.1 mg/dL (8.4-10.2); Carbon Dioxide 36 mmol/L (22-30); Chloride 99 mmol/L (98-107); Estimated CRCL calculation 58 ml/min; Estimated Glomerular Filt Rate > 60; Glucose 77 mg/dL (65-110); Potassium 3.7 mmol/L (3.4-5.0); Sodium 135 mmol/L (137-145)
[2022-01-14] MEDS: LACTATED RINGERS 1,000 ML 50 ML IV CONT (08:54)
[2022-01-14] MEDS: NICOTINE (*PBKC) 21 MG PATCH 1 PATCH TRANSDERM (08:54)
[2022-01-14] MEDS: FAMOTIDINE 20 MG TABLET 40 MG PO (08:54)
[2022-01-14] MEDS: ATORVASTATIN 40 MG TABLET PO (08:54)
[2022-01-14] MEDS: PANTOPRAZOLE SODIUM IV 40 MG VIAL IV PUSH (08:55)
[2022-01-14] MEDS: FUROSEMIDE INJ 40 MG/4 ML VIAL IV PUSH (08:55)
[2022-01-14] MEDS: METOPROLOL TARTRATE 50 MG TAB PO (08:55)
[2022-01-14] MEDS: MORPHINE SULFATE (*CRX) 15 MG TABCR PO (08:55)
[2022-01-14] MEDS: LOSARTAN POTASSIUM 50 MG TABLET PO (08:55)
[2022-01-14] MEDS: MAGNESIUM OXIDE 400 MG TABLET PO (08:55)
[2022-01-14] MEDS: ONDANSETRON INJ 4 MG/2 ML VIAL IV PUSH (09:12)
--- NOTE | 2022-01-14 10:37 | PM.DS ---
DS: Admitting Diagnosis Discharge Date 01/14/2022 Admitting Diagnosis AMS DS: Discharge Diagnosis Discharge Diagnosis (1) Septic shock: Code(s): A41.9 - Sepsis, unspecified organism; R65.21 - Severe sepsis with septic shock Status: Acute Assessment and Plan: -Management per finisher hand -Levophed discontinued. Blood pressure stable -UA reflective of UTI -01/06 CT abdomen and pelvis showed extra luminal gas and trace fluid adjacent to the sigmoid colon and rectum which may be secondary to diverticulitis or stercoral colitis, diffuse bladder wall thickening which may be secondary to cystitis or chronic outlet obstruction, mild right hydronephrosis and hydroureter, bladder stones, small pleural effusion left was than right, large sliding hiatal hernia. -01/06: Chest x-ray Airspace opacities in mid and lower lung zones likely atelectasis, small left pleural effusion. -continue cefepime, vancomycin, Flagyl for anaerobic coverage given patient may have diverticulitis or stercoral colitis. 01/13/2022 interval history: 71 y/o with CVA now presented with septic shock most likel 2/2 to UTI and urine culture is E coli and Enterococcus species being treated Cefepime and and vancomycin also there is a concern for diverticulitis and Flagyl was added discuss with ID pharmacist and recommended to dc Cefepime and started Ampicillin, patient blood pressure is now normalized and patient been afebrile, patient also found to have bilateral upper extremity DVT currently treated with Lovenox will switch over to oral anticoagulation upon discharge, however on 01/10 patient was quite somnolent to further evaluate CT scan of the head was done it showed worsening cerebral infarct and concerning for cerbral hemorragh, communicated with neurologist suspect cardioembolic event and further workup is in progress, patient had being treated with full-dose Lovenox and antiplatelets to prevent secondary strokes, I discussed with family for anticoagulation for DVT and risk and benefit to prevent PE but increase risk for Cerebral hemorrhage similaryl risk with antiplat therapy, family is considering hospice for the patient, will follow up and plan. today patient family has agreed to stop anticoagulation, and will discuss with hospice, may discharge home tomorrow, patient has lower extremity wound will be seen by wound nurse, patient with upper or lower extremity weakness will continue PT OT patient will benefit going to rehab. patient is more awake today his and daughter are present in the room suggested she will talk to their daughter and will plan. (2) Acute UTI: Code(s): N39.0 - Urinary tract infection, site not specified Status: Acute Assessment and Plan: UA reflective of UTI - continue cefepime (3) Acute kidney injury: Code(s): N17.9 - Acute kidney failure, unspecified Status: Acute Assessment and Plan: -continue maintenance IV fluids -monitor renal function, electrolytes and urine output (4) CVA (cerebral vascular accident): Code(s): I63.9 - Cerebral infarction, unspecified Status: Acute Assessment and Plan: - history of recent CVA (5) LV dysfunction: Code(s): I51.9 - Heart disease, unspecified Status: Acute Assessment and Plan: 12/17/2021: Echocardiogram showed mild LV enlargement with moderate systolic dysfunction, EF 35-40%, grade 1 diastolic dysfunction, aortic valve sclerosis without stenosis. Dilated left atrium. Normal valvular disease (6) Chronic respiratory failure: Code(s): J96.10 - Chronic respiratory failure, unspecified whether with hypoxia or hypercapnia Status: Acute Assessment and Plan: Patient is post CVA, was transferred to [facility] on [facility] L nasal cannula. CTA chest on the last admission was negative for pulmonary embolism but did show large sliding hiatal hernia, emphysema and bilateral lower lobe infiltrates. DS: Summary Ho
--- NOTE | 2022-01-14 12:22 | PC.NURSE ---
On 01/14/22, the student, [Gunjan Guzman], provided care and completed [facility] documentation on this patient. I have reviewed the student's documentation and agree with the findings.
[2022-01-14 13:22] VITALS: BP 126/72; PULSE 75; RESP 16; TEMP 37.1; O2SAT 94
== END 2022-01-14 13:42 | disposition hospice, home (50) | DRG 698 ==
LOC: ANHED 07:01 → ANHICU 13:17 → ANH2MED 01-08 11:32 → ANHICU 01-17 13:04
PROVIDERS: Internal Medicine; Admitting Provider Internal Medicine; Emergency Provider Emergency Medicine; Visit Provider Family Medicine
DX: T83.592A Infection and inflammatory reaction due to indwelling ureteral stent, initial encounter (principal); A41.9 Sepsis, unspecified organism; I61.9 Nontraumatic intracerebral hemorrhage, unspecified; L89.153 Pressure ulcer of sacral region, stage 3; R65.21 Severe sepsis with septic shock; I63.9 Cerebral infarction, unspecified; I50.43 Acute on chronic combined systolic (congestive) and diastolic (congestive) heart failure; N17.9 Acute kidney failure, unspecified; N39.0 Urinary tract infection, site not specified; J96.10 Chronic respiratory failure, unspecified whether with hypoxia or hypercapnia; K57.92 Diverticulitis of intestine, part unspecified, without perforation or abscess without bleeding; I82.621 Acute embolism and thrombosis of deep veins of right upper extremity; B96.20 Unspecified Escherichia coli [E. coli] as the cause of diseases classified elsewhere; B95.2 Enterococcus as the cause of diseases classified elsewhere; I95.9 Hypotension, unspecified; N40.0 Benign prostatic hyperplasia without lower urinary tract symptoms; F17.210 Nicotine dependence, cigarettes, uncomplicated; L89.152 Pressure ulcer of sacral region, stage 2; J43.9 Emphysema, unspecified; K52.89 Other specified noninfective gastroenteritis and colitis; K21.9 Gastro-esophageal reflux disease without esophagitis; K44.9 Diaphragmatic hernia without obstruction or gangrene; Z85.528 Personal history of other malignant neoplasm of kidney; Z98.49 Cataract extraction status, unspecified eye; Z90.5 Acquired absence of kidney; Z96.659 Presence of unspecified artificial knee joint; Z86.73 Personal history of transient ischemic attack (TIA), and cerebral infarction without residual deficits; Z20.822 Contact with and (suspected) exposure to COVID-19; Z89.612 Acquired absence of left leg above knee; Z86.718 Personal history of other venous thrombosis and embolism; Z85.72 Personal history of non-Hodgkin lymphomas
CPT/HCPCS: 36415; 36556; 36600; 70450; 70496; 70498; 70551; 71045; 74176; 76775; 80048; 80053; 80202; 81001; 82140; 82436; 82550; 82565; 82570; 82805; 82948; 83605; 83735; 84100; 84133; 84300; 85025; 85027; 85610; 85730; 85999; 87040; 87077; 87086; 87088; 87186; 87636; 93005; 93306; 93970; 96361; 96365; 96375; 97161; 97165; 97168; 97530; 97535; 99291; A9270; C9113; J0295; J0692; J0696; J1650; J1940; J2405; J3370; J3480; J7030; J7040; J7120; Q9967

== ENCOUNTER 2022-01-18 00:52 | HOS | payer OTHER, MEDICARE, SELFPAY ==
--- NOTE | 2022-01-18 03:00 | ADMGEN ---
This patient, Danish Adamson, was admitted to 3 [facility] Surg Room 318-01. Patient/family oriented to hospital policies and general routines including ID bracelet, bed and alarms, visiting hours, pain management, procedures, bathroom and other care routines, personal items, smoking policy, room service/diet, and visiting hours. Information on how to activate the Rapid Response Team has been discussed. Patient/Family are encouraged to report perceived risks to care and to ask questions if they do not understand what they are told or what they should do.
--- NOTE | 2022-01-18 03:10 | PC.NURSE ---
Addendum entered by Dania Moore RN 01/18/22 03:49: Written hospice orders placed in chart. Original Note: Unable to fully assess before time of . Stage 2 decub noted to sacral area, right heel, and right ankle.
--- NOTE | 2022-01-18 22:21 | PM.IMHP ---
H&P: HPI History of Present Illness Date/Time: 01/18/22 22:21 Chief Complaint: Uncontrolled restlessness Narrative: 71 y/o male with hx of history of recent bilateral stroke, LUE DVT, left AKA, BPH, chronic tobacco use, history of kidney cancer and lymphoma, as well as cardiomyopathy who presented initially due to altered mental status from retirement on 01/06, complicated by hypotension and sepsis, found to have new infarcts in watershed region. He was treated initially with fluids, norepinephrine, and broad spectrum antibiotics. U/a was concerning for infection and CT A/P was concerning for possible diverticulitis. Urine grew e coli and enteroccus. Blood cultures were negative. On 01/10 he became more somnolent and CT scan of the head was performed revealing worsening cerebral infarct and concerning for cerebral hemorrhage. At that time he was receiving therapeutic Lovenox for bilateral UE DVT's. Because of his worsening status and multiple comorbidities as well as his restlessness, his family opted for inpatient hospice care. Review of Systems Review of Systems: ROS unobtainable: Yes unobtainable due to medical condition PMFSH Past Medical History Medical History Above knee amputation of left lower extremity BPH (benign prostatic hyperplasia) Gastroesophageal reflux disease History of kidney cancer History of lymphoma Substance abuse Tobacco abuse Surgical History Surgical History H/O cataract extraction H/O umbilical hernia repair History of nephrectomy History of total knee arthroplasty Family History Family History Other Hypertension Social History Social History (Updated 01/18/22 @ 22:32 by Stiven Arora MD) Social History: The patient lives at retirement and had 5 children. The patient continues to smoke every day. The patient is listed as single. His daughter Jenae is listed as the next of kin. Code status DNR Smoking status: Current every day smoker Alcohol intake: never Lack of Transportation: No Lack of Food: Never True Current Housing: I Have Housing Concerned About Future Housing: No Difficulty Paying Gas/Electric Bills: No Difficulty Paying for Meds: No Currently Unemployed: No Education: High School Diploma/GED Difficulty w/ Childcare or Family Care: No Spiritual care concerns: No Meds Home Medications and Allergies Home Medications Medication Instructions Recorded Confirmed Type famotidine 40 mg tablet 40 mg PO BID 12/15/21 01/06/22 History aspirin 325 mg tablet 325 mg PO DAILY #14 tabs 12/22/21 01/06/22 Rx atorvastatin 40 mg tablet (Lipitor) 40 mg PO DAILY #30 tabs 12/22/21 01/06/22 Rx losartan 50 mg tablet (Cozaar) 50 mg PO DAILY #30 tabs 12/22/21 01/06/22 Rx metoprolol tartrate 50 mg tablet 50 mg PO BID #60 tabs 12/22/21 01/06/22 Rx morphine 15 mg tablet,extended 15 mg PO BID 7 days #14 tabs 12/22/21 01/06/22 Rx release quetiapine 25 mg tablet (Seroquel) 12.5 mg PO HS #14 tabs 12/22/21 01/06/22 Rx tamsulosin 0.4 mg capsule (Flomax) 0.4 mg PO HS #30 caps 12/22/21 01/06/22 Rx bisacodyl 10 mg rectal suppository 10 mg RECTAL QAM PRN Constipation 01/06/22 01/06/22 History Allergies Allergy/AdvReac Type Severity Reaction Status Date / Time No Known Allergies Allergy Unverified 05/27/15 06:58 Exam Narrative: PRIOR TO EXAM Assessment and Plan Assessment and plan (1) Palliative care encounter: Code(s): Z51.5 - Encounter for palliative care Status: Acute Assessment and Plan: Meets inpatient hospice criteria due to requiring continuous IV narcotic for control of restlessness Remainder of IV regimen as ordered (2) CVA (cerebral vascular accident): Code(s): I63.9 - Cerebral infarction, unspecified Status: Acute (3) Sepsis: Co
--- NOTE | 2022-01-18 22:35 | P.DN_ITS ---
Discharge Summary Date and Time Date of : 01/18/22 Time of : 03:10 Provider Pronounced By: Rock Rod RN Probable Cause of Probable Cause of : stroke in the presence of septic shock due to UTI Summary Hospital Course: Admitted to inpatient hospice service due to uncontrolled restlessness. Palliative regimen was initiated. Mr Adamson in less than one hour after admission to the hospice service. Additional Data Confirmation of as documented by pronouncing clinician: Pupillary Reflex, Palpable Pulses, Response to Stimuli, Heart Tones and Breath Sounds Name of Provider Notified: Mary Mari Time Provider Notified: 03:15 Licensed Electrician Notified: Yes Date [facility] Notified of : 01/18/22 Time [facility] Notified of : 03:25
== END 2022-01-18 03:10 | disposition expired | DRG 871 ==
PROVIDERS: Admitting Provider Internal Medicine Adolescent Medicine; Visit Provider Internal Medicine
DX: A41.9 Sepsis, unspecified organism (principal); I63.9 Cerebral infarction, unspecified; R65.21 Severe sepsis with septic shock; I42.9 Cardiomyopathy, unspecified; N39.0 Urinary tract infection, site not specified; J96.10 Chronic respiratory failure, unspecified whether with hypoxia or hypercapnia; N17.9 Acute kidney failure, unspecified; Z51.5 Encounter for palliative care; F17.210 Nicotine dependence, cigarettes, uncomplicated; K21.9 Gastro-esophageal reflux disease without esophagitis; N40.0 Benign prostatic hyperplasia without lower urinary tract symptoms; Z86.718 Personal history of other venous thrombosis and embolism; Z89.612 Acquired absence of left leg above knee; Z85.528 Personal history of other malignant neoplasm of kidney; Z85.72 Personal history of non-Hodgkin lymphomas; Z90.5 Acquired absence of kidney